=== PATIENT | female | born 1960 | race African-American/Black ===

== ENCOUNTER 2016-05-02 19:51 | Inpatient (IN) | payer OTHER, MEDICARE ==
[~2016-05-02] VITALS: Ht 167.6 cm; Wt 92.0 kg
[~2016-05-02 19:51] MED LIST: ALBU8I INH; AZAT50 PO; BACT800T5 PO; BECL80AE3 INH; CLON1 PO; DICL1GEL TOP; FOSA70TA PO; GLUCTAB PO; HUMSS SQ; LANTINJ SQ; METO25TA6 PO; MIDO5 PO; OMEP20CA5 PO; PRED20 PO; PREG75 PO; TIZA2TAB PO; [UNRECOGNIZED DRUG - CODE] IMPLANPUMP
[2016-05-02 19:55] VITALS: BP 84/49; PULSE 95; RESP 22; TEMP 98.7; O2SAT 97
[2016-05-02] MEDS ORDERED: SODIUM CHLORIDE 0.9% FLUSH 5 ML FLUSH IVF PRN (20:00)
[2016-05-02] MEDS ORDERED: SODIUM CHLOR 0.9% 1000 ML INJ 1,000 ML IV SCH ×2 (20:03)
--- NOTE | 2016-05-02 20:08 | PD ---
HPI Chief Complaint: Pain: Acute or Chronic Time Seen by Provider: 19:55 Travel History International Travel<30 days: No Contact w/Intl Traveler<30days: No Traveled to known affect area: No History of Present Illness HPI 55 year old female history of MS with lower extremity paraplegia and blindness in left eye, COPD, diabetes, colostomy, presents for evaluation of acute on chronic pain and inability to urinate as well as dyspnea. The patient reports that she has chronic pain all over her body for which she uses baclofen and Dilaudid through a pump as well as oral morphine. She says that her chronic generalized pain is worse over the past week. She cannot localize her pain. She also reports that she has not urinated in the past 2 days. She does not know if she's had any fevers or chills denies any upper respiratory symptoms. She does have a sacral pressure ulcer as well as a wound on her left breast which she reports is being managed at a wound care clinic. She reports that she was seen yesterday by her wound care doctor and had her dressings changed. PFSH Past Medical History Asthma: No Autoimmune Disease: No Blood Disorders: No Anxiety: Yes Depression: No Cancer: No Cardiovascular Problems: No Chemotherapy: Yes (for MS/ no hx of CA) COPD: Yes Diabetes: Yes Diminished Hearing: No Endocrine: No Glaucoma: No Genitourinary: No Hepatitis: No Hiatal Hernia: No Hypertension: No Implanted Vascular Access Dvce: Yes (rt subclavian port) Musculoskeletal: Yes (LOW BACK PAIN) Neurologic: Yes (MULTIPLE SCLEROSIS SINCE 2004) Psychiatric: No Reproductive: No Respiratory: No Radiation Therapy: No Sickle Cell Disease: No Sleep Apnea: No Thyroid Disease: No ?: Not Menopausal: Yes : 2 Para: 2 Miscarriage: 0 : 0 Past Surgical History Abdominal Surgery: Yes (LYSIS OF ADHESIONS) Appendectomy: Yes Body Medical Devices: IVAD Cardiac Surgery: No Cholecystectomy: Yes Ear Surgery: No Endocrine Surgery: No Eye Surgery: No Genitourinary Surgery: No Gynecologic Surgery: No Hysterectomy: Yes Oral Surgery: No Thoracic Surgery: No Other Surgery: Yes (HEMORROIDECTOMY) Social History Alcohol Use: No Tobacco Use: No Substance Use: No Allergies-Medications (Allergen,Severity, Reaction): Coded Allergies: No Known Allergies (Verified , 05/02/16) Reported Meds & Prescriptions Reported Meds & Active Scripts Active Reported Lantus Solostar Pen Inj (Insulin Glargine) 300 Unit/3 Ml Pen 1 Units SQ Lyrica (Pregabalin) 75 Mg Cap 75 Mg PO TID Alendronate (Alendronate Sodium) 70 Mg Tab 70 Mg PO Q7D Ondansetron (Ondansetron HCl) 8 Mg Tab 8 Mg PO TID Calcium 600 Mg Tab 600 Mg PO DAILY Lisinopril 5 Mg Tab 5 Mg PO DAILY Bethanechol 25 Mg Tab 25 Mg PO QID Vitamin D (Cholecalciferol) 400 Unit/Ml Drops 400 Units PO DAILY Morphine IR (Morphine Sulfate) 15 Mg Tab 15 Mg PO Q4H PRN Azathioprine 50 Mg Tab 50 Mg PO BID Hazardous agent use appropriate precautions for handling and disposal. Clonazepam 0.5 Mg Tab 0.5 Mg PO BID Humalog Kwikpen Pen Inj (Insulin Lispro (Human) Inj) 300 Unit/3 Ml Pen 1 Units SQ Review of Systems Except as stated in HPI: all other systems reviewed are Neg Physical Exam Narrative GENERAL: Chronically ill-appearing female who is in no acute distress. She is hypotensive on initial examination. She is not febrile or tachycardic. SKIN: Warm and dry. Stage II circular pressure ulcer on the sacrum, no erythema or drainage. Stage II pressure ulcer on the breast, no erythema or drainage. HEAD: Atraumatic. Normocephalic. EYES: Pupils round, right pupil is reactive to light. Extraocular muscles are intact. ENT: No nasal bleeding or discharge. Mucous membranes pink and moist. NECK: Trachea midline. No JVD. CARDIOVASCULAR: Regular rate and rhythm. No murmur appreciated. RESPIRATORY: No accessory muscle use. Clear to auscultation. Breath sounds equal bilaterally. No crackles no wheezing or rhonchi GASTROINTESTINAL: Abdomen soft, non-tender, nondistended. Hepatic and splenic margins not palpable. Colostomy in place. MUSCULOSKELETAL: No obvious deformities. No edema. NEUROLOGICAL: Awake and alert. No obvious cranial nerve deficits. Motor grossly within normal limits. Normal speech. Data Data Last Documented VS Orders Complete Blood Count With Diff (05/02/16 19:57) Comprehensive Metabolic Panel (05/02/16 19:57) Lipase (05/02/16 19:57) Iv Access Insert/Monitor (05/02/16 19:57) Ecg Monitoring (05/02/16 19:57) Oximetry (05/02/16 19:57) Sodium Chloride 0.9% Flush (Ns Flush) (05/02/16 20:00) Electrocardiogram (05/02/16 19:57) Chest, Single Ap (05/02/16 19:57) Creatine Kinase (Cpk) (05/02/16 19:57) Troponin I (05/02/16 19:57) Urinalysis - C+S If Indicated (05/02/16 19:57) Lactic Acid Sepsis Protocol (05/02/16 20:03) Blood Culture (05/02/16 20:03) Sodium Chlor 0.9% 1000 Ml Inj (Ns 1000 M (05/02/16 20:03) Sodium Chlor 0.9% 1000 Ml Inj (Ns 1000 M (05/02/16 20:03) Act Partial Throm Time (Ptt) (05/02/16 20:05) Prothrombin Time / Inr (Pt) (05/02/16 20:05) CKMB (05/02/16 20:10) CKMB% (05/02/16 20:10) Urine Culture (05/02/16 22:35) Admit Order (Ed Use Only) (05/03/16 00:25) Labs MDM Medical Decision Making Medical Screen Exam Complete: Yes Emergency Medical Condition: Yes Medical Record Reviewed: Yes Interpretation(s) EKG reveals normal sinus rhythm CBC hemoglobin 9.2 otherwise unremarkable CMP potassium 3.2, creatinine 2.19, lactic acid 3.5, protein corrected calcium 7.7, total CK 1016 Chest x-ray reveals scarring versus atelectasis, no acute abnormalities Differential Diagnosis Acute on chronic pain, urinary retention, UTI, sepsis, PE, COPD exacerbation, pneumonia Narrative Course 55-year-old female with MS with paraplegia, COPD, on morphine as well as Dilaudid and baclofen pain pumps presents with chronic pain, generalized, worse for one week as well as inability to urinate in 2 days, some dyspnea. On initial examination she is hypotensive, she reports that she typically is hypotensive with systolic in the 80s. The patient was initially given 500 mL bolus via EMS. 2 L additional fluid bolus will be ordered. Plan is for basic lab work, chest x-ray, EKG. Patient's lab work has been reviewed. She appears to have an acute kidney injury as well as a lactic acidosis, myositis with a CK of 1016. The CT pulmonary angiogram is being canceled given her kidney function will likely develop a PE. Her blood work has improved to the systolic 110 range. 2300: At the end of my shift the patient was signed out to Dr. Pelayo pending urinalysis, likely ultimately for admission. Min Warren May 02, 2016 20:08 Platelet Count 252 TH/MM3 Mean Platelet Volume 7.6 FL Neutrophils (%) (Auto) 66.0 % Lymphocytes (%) (Auto) 24.7 % Monocytes (%) (Auto) 8.0 % Eosinophils (%) (Auto) 1.0 % Basophils (%) (Auto) 0.3 % Neutrophils # (Auto) 6.4 TH/MM3 Lymphocytes # (Auto) 2.4 TH/MM3 Monocytes # (Auto) 0.8 TH/MM3 Eosinophils # (Auto) 0.1 TH/MM3 Basophils # (Auto) 0.0 TH/MM3 CBC Comment DIFF FINAL Differential Comment Prothrombin Time 10.6 SEC Prothromb Time International 1.0 RATIO Ratio Activated Partial 32.2 SEC Thromboplast Time Sodium Level 136 MEQ/L Potassium Level 3.2 MEQ/L Chloride Level 99 MEQ/L Carbon Dioxide Level 27.5 MEQ/L Anion Gap 10 MEQ/L Blood Urea Nitrogen 18 MG/DL Creatinine 2.19 MG/DL Estimat Glomerular Filtration 28 ML/MIN Rate Random Glucose 173 MG/DL Calcium Level 7.4 MG/DL Protein Corrected Calcium 7.7 MG/DL Total Bilirubin 0.2 MG/DL Aspartate Amino Transf 21 U/L (AST/SGOT) Alanine Aminotransferase 16 U/L (ALT/SGPT) Alkaline Phosphatase 78 U/L Total Creatine Kinase 1016 U/L Creatine Kinase MB 1.7 NG/ML Creatine Kinase MB % 0.2 % Troponin I LESS THAN 0.02 NG/ML Total Protein 6.6 GM/DL Albumin 2.3 GM/DL Lipase 145 U/L Lactic Acid Level 3.5 mmol/L [facility] Medical Decision Making Medical Screen Exam Complete: Yes Emergency Medical Condition: Yes Medical Record Reviewed: Yes Interpretation(s) EKG reveals normal sinus rhythm CBC hemoglobin 9.2 otherwise unremarkable CMP potassium 3.2, creatinine 2.19, lactic acid 3.5, protein corrected calcium 7.7, total CK 1016 Chest x-ray reveals scarring versus atelectasis, no acute abnormalities Differential Diagnosis Acute on chronic pain, urinary retention, UTI, sepsis, PE, COPD exacerbation, pneumonia Narrative Course 55-year-old female with MS with paraplegia, COPD, on morphine as well as Dilaudid and baclofen pain pumps presents with chronic pain, generalized, worse for one week as well as inability to urinate in 2 days, some dyspnea. On initial examination she is hypotensive, she reports that she typically is hypotensive with systolic in the 80s. The patient was initially given 500 mL bolus via EMS. 2 L additional fluid bolus will be ordered. Plan is for basic lab work, chest x-ray, EKG. Patient's lab work has been reviewed. She appears to have an acute kidney injury as well as a lactic acidosis, myositis with a CK of 1016. The CT pulmonary angiogram is being canceled given her kidney function will likely develop a PE. Her blood work has improved to the systolic 110 range. 2300: At the end of my shift the patient was signed out to Dr. Pelayo pending urinalysis, likely ultimately for admission. Min Warren May 02, 2016 20:08
[2016-05-02] MEDS ORDERED: BETH25TA2 PO (20:20)
[2016-05-02] MEDS ORDERED: HUMA100I3 SQ (20:20)
[2016-05-02] MEDS ORDERED: MSIR15 PO (20:20)
[2016-05-02] MEDS ORDERED: LISI-519 PO (20:20)
[2016-05-02] MEDS ORDERED: LYRI75CA PO (20:20)
[2016-05-02] MEDS ORDERED: CLON0.5T PO (20:20)
[2016-05-02] MEDS ORDERED: ALEN1TAB48 PO (20:20)
[2016-05-02] MEDS ORDERED: CHOL400D2 PO (20:20)
[2016-05-02] MEDS ORDERED: LANTINJ SQ (20:20)
[2016-05-02] MEDS ORDERED: AZAT50 PO (20:20)
[2016-05-02] MEDS ORDERED: ONDA1TAB17 PO (20:20)
[2016-05-02] MEDS ORDERED: CALC600T13 PO (20:20)
[2016-05-02 20:50] LABS: APTT (PATIENT) 32.2 SEC (24.3-30.1); PROTHROMBIN TIME - PATIENT 10.6 SEC (9.8-11.6)
[2016-05-02 21:00] VITALS: BP 92/57; PULSE 70; RESP 18; O2SAT 100
[2016-05-02 21:06] LABS: ANION GAP 10 MEQ/L (5-15)
[2016-05-02 21:14] LABS: ALKALINE PHOSPHATASE 78 U/L (45-117); ALT (GPT) 16 U/L (10-53); AST (GOT) 21 U/L (15-37); BICARBONATE 27.5 MEQ/L (21.0-32.0); BLOOD UREA NITROGEN 18 MG/DL (7-18); CALCIUM-PROTEIN CORRECTED 7.7 MG/DL (8.5-10.1); CHLORIDE 99 MEQ/L (98-107); CREATINE KINASE 1016 U/L (26-192); GLOMERULAR FILTRATION RATE 28 ML/MIN (>89); POTASSIUM 3.2 MEQ/L (3.5-5.1); SODIUM (NA) 136 MEQ/L (136-145); TOTAL BILIRUBIN ADULT 0.2 MG/DL (0.2-1.0)
[2016-05-02 21:15] LABS: AUTOMATED NEUTROPHIL # 6.4 TH/MM3 (1.8-7.7); BASOPHIL % 0.3 % (0.0-2.0); EOSINOPHIL # 0.1 TH/MM3 (0-0.4); HEMATOCRIT 28.5 % (35.0-46.0); HEMO FLAGS DIFF FINAL; LYMPH % 24.7 % (9.0-44.0); LYMPHOCYTE # 2.4 TH/MM3 (1.0-4.8); MEAN CELL VOLUME 86.8 FL (80.0-100.0); MEAN CORPUSCULAR HGB CONC 32.2 % (32.0-36.0); PLATELET COUNT 252 TH/MM3 (150-450); RED BLOOD COUNT 3.28 MIL/MM3 (4.00-5.30); RED CELL DISTRIBUTION WIDTH 13.4 % (11.6-17.2); WHITE BLOOD COUNT 9.7 TH/MM3 (4.0-11.0)
--- NOTE | 2016-05-02 21:22 | RADRPT ---
EXAM DATE/TIME: 05/02/2016 20:11 [place] COMPARISON: CHEST SINGLE AP, July 19, 2015, 22:43. INDICATIONS : Pain and shortness of breath. MEDICAL HISTORY : Multiple sclerosis. SURGICAL HISTORY : Port placement. ENCOUNTER: Initial ACUITY: 2 days PAIN SCORE: 5/10 LOCATION: Bilateral chest FINDINGS: There is an [id number] in place from the right internal jugular approach with the tip overlying th e SVC. The heart size is normal. There is increased density at identified at the bases bilaterally b eing more prominent on the right. The mid and upper lungs are clear. Bony structures are grossly in tact. Clips are seen in the right upper quadrant of the abdomen. CONCLUSION: Linear increased density identified at the bases bilaterally likely representing some scarring or atelectasis. These findings were present previously and appear unchanged. Vin Blue MD on May 02, 2016 at 21:14 Board Certified Radiologist. This report was verified electronically.
[2016-05-02 21:26] LABS: CKMB 1.7 NG/ML (0.5-3.6)
[2016-05-02 22:30] LABS: LACTIC ACID GHOST NOT REPORTABLE
[2016-05-02 23:00] VITALS: BP 104/58; PULSE 72; RESP 18; O2SAT 100
[2016-05-02 23:33] LABS: BACTERIA, URINE MANY /hpf; BLOOD, URINE SMALL (NEG); COMMENT (UR) CATH-CULTURE IND; CULTURE IF INDICATED CATH CULTURE IND; GLUCOSE,URINE NEG (NEG); KETONE, URINE NEG (NEG); MUCUS URINE MANY /lpf (OCC); PH, URINE 5.5 (5.0-8.5); SQUAMOUS EPITHELIAL CELL URINE 1 /hpf (0-5); URINE COLOR YELLOW (YELLW/STRAW)
[2016-05-02 23:34] LABS: NITRITE,URINE POS (NEG)
--- NOTE | 2016-05-02 23:48 | PD ---
Physical Exam Date Seen by Provider: May 02, 2016 Narrative Patient presented with pain all over. Data Data Last Documented VS Vital Signs Date Time Temp Pulse Resp B/P Pulse Ox O2 Delivery O2 Flow Rate FiO2 05/02/16 20:02 84 20 05/02/16 19:55 98.7 84/49 97 Orders Complete Blood Count With Diff (05/02/16 19:57) Comprehensive Metabolic Panel (05/02/16 19:57) Lipase (05/02/16 19:57) Iv Access Insert/Monitor (05/02/16 19:57) Ecg Monitoring (05/02/16 19:57) Oximetry (05/02/16 19:57) Sodium Chloride 0.9% Flush (Ns Flush) (05/02/16 20:00) Electrocardiogram (05/02/16 19:57) Chest, Single Ap (05/02/16 19:57) Creatine Kinase (Cpk) (05/02/16 19:57) Troponin I (05/02/16 19:57) Urinalysis - C+S If Indicated (05/02/16 19:57) Lactic Acid Sepsis Protocol (05/02/16 20:03) Blood Culture (05/02/16 20:03) Sodium Chlor 0.9% 1000 Ml Inj (Ns 1000 M (05/02/16 20:03) Sodium Chlor 0.9% 1000 Ml Inj (Ns 1000 M (05/02/16 20:03) Act Partial Throm Time (Ptt) (05/02/16 20:05) Prothrombin Time / Inr (Pt) (05/02/16 20:05) CKMB (05/02/16 20:10) CKMB% (05/02/16 20:10) Urine Culture (05/02/16 22:35) Admit Order (Ed Use Only) (05/03/16 00:25) Labs Laboratory Tests Test 05/02/16 05/02/16 05/02/16 05/02/16 20:10 20:15 22:35 23:40 White Blood Count 9.7 TH/MM3 Red Blood Count 3.28 MIL/MM3 Hemoglobin 9.2 GM/DL Hematocrit 28.5 % Mean Corpuscular Volume 86.8 FL Mean Corpuscular Hemoglobin 28.0 PG Mean Corpuscular Hemoglobin 32.2 % Concent Red Cell Distribution Width 13.4 % Platelet Count 252 TH/MM3 Mean Platelet Volume 7.6 FL Neutrophils (%) (Auto) 66.0 % Lymphocytes (%) (Auto) 24.7 % Monocytes (%) (Auto) 8.0 % Eosinophils (%) (Auto) 1.0 % Basophils (%) (Auto) 0.3 % Neutrophils # (Auto) 6.4 TH/MM3 Lymphocytes # (Auto) 2.4 TH/MM3 Monocytes # (Auto) 0.8 TH/MM3 Eosinophils # (Auto) 0.1 TH/MM3 Basophils # (Auto) 0.0 TH/MM3 CBC Comment DIFF FINAL Differential Comment Prothrombin Time 10.6 SEC Prothromb Time International 1.0 RATIO Ratio Activated Partial 32.2 SEC Thromboplast Time Sodium Level 136 MEQ/L Potassium Level 3.2 MEQ/L Chloride Level 99 MEQ/L Carbon Dioxide Level 27.5 MEQ/L Anion Gap 10 MEQ/L Blood Urea Nitrogen 18 MG/DL Creatinine 2.19 MG/DL Estimat Glomerular Filtration 28 ML/MIN Rate Random Glucose 173 MG/DL Calcium Level 7.4 MG/DL Protein Corrected Calcium 7.7 MG/DL Total Bilirubin 0.2 MG/DL Aspartate Amino Transf 21 U/L (AST/SGOT) Alanine Aminotransferase 16 U/L (ALT/SGPT) Alkaline Phosphatase 78 U/L Total Creatine Kinase 1016 U/L Creatine Kinase MB 1.7 NG/ML Creatine Kinase MB % 0.2 % Troponin I LESS THAN 0.02 NG/ML Total Protein 6.6 GM/DL Albumin 2.3 GM/DL Lipase 145 U/L Lactic Acid Level 3.5 mmol/L 2.0 mmol/L Urine Color YELLOW Urine Turbidity CLOUDY Urine pH 5.5 Urine Specific [place] 1.012 Urine Protein TRACE mg/dL Urine Glucose (UA) NEG mg/dL Urine Ketones NEG mg/dL Urine Occult Blood SMALL Urine Nitrite POS Urine Bilirubin NEG Urine Urobilinogen LESS THAN 2.0 MG/DL Urine Leukocyte Esterase LARGE Urine RBC 64 /hpf Urine WBC /hpf Urine WBC Clumps MANY Urine Squamous Epithelial 1 /hpf Cells Urine Bacteria MANY /hpf Urine Mucus MANY /lpf Microscopic Urinalysis Comment CATH-CULTURE IND MDM Supervised Visit with FITO: Yes Narrative Course Patient presented complaining with pain all over. She was noted to be hypotensive on arrival. Septic workup was initiated. CBC & BMP Diagram 05/02/16 20:10 Lactic acid level was 3.5. Total CK is about 1000. UA is cloudy with many white blood cell clumps, large leukocyte esterase, positive nitrite and many bacteria. Sepsis Criteria SIRS Criteria (2 or more): Heart rate over 90, RR > 20 or PaCO2 < 32 Sepsis Criteria (SIRS+source): Infect source susp/known Severe Sepsis (+one): Hypotension Physician Communication Physician Communication Dr. Tsang will admit Diagnosis Primary Impression: Sepsis Qualified Code: A41.9 - Sepsis, due to unspecified organism Additional Impressions: UTI (urinary tract infection) Qualified Code: N30.00 - Acute cystitis without hematuria Acute kidney injury Admitting Information Admitting Physician Requests: Admit Condition: Stable Allie Pelayo MD May 02, 2016 23:48
[2016-05-03] VITALS (8 sets, daily range): BP systolic 96–116; BP diastolic 49–60; PULSE 70–87; RESP 16–19; TEMP 96.5–98.8; O2SAT 95–100
[2016-05-03] MEDS ORDERED: SODIUM CHLORIDE 0.9% FLUSH 5 ML FLUSH FLUSH PRN (00:30)
[2016-05-03] MEDS ORDERED: NALOXONE HCL 0.4 MG/ML AMP IV PRN (00:30)
[2016-05-03] MEDS: SODIUM CHLOR 0.9% 1000 ML INJ 1,000 ML IV SCH ×3 (00:59→22:54)
[2016-05-03] MEDS: cefTRIAXone INJ 1,000 MG in SODIUM CHLORIDE 0.9% INJ 100 ML IV SCH ×2 (00:59→14:03)
[2016-05-03] MEDS ORDERED: GLUCAGON 1 MG/ML VIAL OTHER PRN (03:45)
[2016-05-03] MEDS ORDERED: DEXTROSE 50% IN WATER 50 ML VIAL(D50) IV PUSH PRN (03:45)
[2016-05-03] MEDS ORDERED: MORPHINE SULFATE 15 MG TAB PO PRN (03:45)
--- NOTE | 2016-05-03 03:45 | HHI.HP ---
[facility] Chanelle Khan MD Admission Diagnosis uti/sepsis Diagnoses: Chief Complaint: "I haven't urinated in 2-3 days." Patient also c/o chronic generalized Travel History International Travel<30 Days: No Contact w/Intl Traveler <30 Da: No Traveled to Known Affected Are: No Sepsis Criteria SIRS Criteria (2 or more): Heart rate over 90, RR > 20 or PaCO2 < 32 Sepsis Criteria (SIRS+source): Infect source susp/known History of Present Illness This is a pleasant 55-year-old female patient with past medical history which includes multiple sclerosis diagnosed in 2004, patient has been bedridden for the past 5 years, hypertension, diabetes mellitus, sleep apnea, COPD history of acute kidney injury but patient denies chronic kidney disease, colostomy placed status post bowel obstruction. Patient patient's emergency department today because she reports she has not urinated in the past 2-3 days. Patient reports over the past 2 weeks she has had nausea and vomited approximately 3 times will she is sleeping she wakes up vomiting. Patient also reports intermittent periods of shortness of breath worse than her typical COPD. Patient complains of chronic generalized pain which she takes morphine immediate release 15 mg Q4H as needed at home. Patient denies fevers chills chest pain, or change in colostomy output. Patient reports she has not been eating or drinking as much as she typically does. Review of Systems Except as stated in HPI: all other systems reviewed are Neg Past Family Social History Past Medical History multiple sclerosis diagnosed in 2004, patient has been bedridden for the past 5 years, hypertension, diabetes mellitus, sleep apnea, COPD history of acute kidney injury but patient denies chronic kidney disease, colostomy placed status post bowel obstruction Past Surgical History Colostomy placement, cholecystectomy, lysis of adhesions, hemorrhoidectomy Reported Medications Lantus Solostar Pen Inj (Insulin Glargine) 300 Unit/3 Ml Pen 1 Units SQ Lyrica (Pregabalin) 75 Mg Cap 75 Mg PO TID Alendronate (Alendronate Sodium) 70 Mg Tab 70 Mg PO Q7D Ondansetron (Ondansetron HCl) 8 Mg Tab 8 Mg PO TID Calcium 600 Mg Tab 600 Mg PO DAILY Lisinopril 5 Mg Tab 5 Mg PO DAILY Bethanechol 25 Mg Tab 25 Mg PO QID Vitamin D (Cholecalciferol) 400 Unit/Ml Drops 400 Units PO DAILY Morphine IR (Morphine Sulfate) 15 Mg Tab 15 Mg PO Q4H PRN Azathioprine 50 Mg Tab 50 Mg PO BID Hazardous agent use appropriate precautions for handling and disposal. Clonazepam 0.5 Mg Tab 0.5 Mg PO BID Humalog Kwikpen Pen Inj (Insulin Lispro (Human) Inj) 300 Unit/3 Ml Pen 1 Units SQ Allergies: Coded Allergies: No Known Allergies (Verified , 05/02/16) Active Ordered Medications Current Medications Medications (Trade) Dose Ordered Sig/[place] Route Start Time Stop Time Status Last Admin (NS 1000 ml Inj) 1,000 ml @ 100 mls/hr Q10H IV 05/03/16 00:27 05/03/16 00:59 (NS Flush) 2 ml UNSCH PRN FLUSH 05/03/16 00:30 (NS Flush) 2 ml BID FLUSH 05/03/16 09:00 (Heparin Inj) 5,000 units Q8H SQ 05/03/16 09:00 Naloxone HCl 0.4 mg 0.4 mg UNSCH PRN IV 05/03/16 00:30 (Rocephin Inj/NS Inj) 100 ml @ 200 mls/hr Q12H IV 05/03/16 00:30 05/03/16 00:59 (Zofran Inj) 4 mg Q6HR PRN IV PUSH 05/03/16 03:45 (Imuran) 50 mg BID PO 05/03/16 09:00 (Urecholine) 25 mg QID PO 05/03/16 09:00 (Msir) 15 mg Q4H PRN PO 05/03/16 03:45 (Lyrica) 75 mg TID PO 05/03/16 09:00 (D50w (Vial) Inj) 25 ml UNSCH PRN IV PUSH 05/03/16 03:45 (Glucagon Inj) 1 mg UNSCH PRN OTHER 05/03/16 03:45 Family History Family history positive for prostate cancer, breast cancer, stomach cancer Social History Patient denies EtOH use or tobacco use Physical Exam Vital Signs Vital Signs Date Time Temp Pulse Resp B/P Pulse Ox O2 Delivery O2 Flow Rate FiO2 05/03/16 01:00 70 17 111/56 100 Room Air 05/02/16 23:00 72 18 104/58 100 Room Air 05/02/16 21:00 70 18 92/57 100 Room Air 05/02/16 20:02 84 20 05/02/16 19:55 98.7 95 22 84/49 97 Physical Exam GENERAL: This is an obese, bedridden female patient, in no apparent distress. SKIN: Sacral ulceration 2, ulceration left breast HEAD: Atraumatic. Normocephalic. No temporal or scalp tenderness. EYES: Extraocular motions intact. No scleral icterus. No injection or drainage. ENT: Nose without bleeding, purulent drainage or septal hematoma. Throat without erythema, tonsillar hypertrophy or exudate. Uvula midline. Airway patent. NECK: Trachea midline. No JVD or lymphadenopathy. Supple, nontender, no meningeal signs. CARDIOVASCULAR: Regular rate and rhythm without murmurs, gallops, or rubs. RESPIRATORY: Clear to auscultation. Breath sounds equal bilaterally. No wheezes , rales, or rhonchi. GASTROINTESTINAL: Abdomen soft, non-tender, nondistended. No guarding. MUSCULOSKELETAL: Bilateral foot drop. Spastic contracted bilateral lower extremities No calf tenderness. Negative Homans sign bilaterally. NEUROLOGICAL: Awake and alert. Spastic contracted bilateral lower extremities with bilateral foot drop. BUE 4/5. Normal speech. Laboratory Laboratory Tests Test 05/02/16 05/02/16 05/02/16 05/02/16 20:10 20:15 22:35 23:40 White Blood Count 9.7 Red Blood Count 3.28 Hemoglobin 9.2 Hematocrit 28.5 Mean Corpuscular Volume 86.8 Mean Corpuscular Hemoglobin 28.0 Mean Corpuscular Hemoglobin 32.2 Concent Red Cell Distribution Width 13.4 Platelet Count 252 Mean Platelet Volume 7.6 Neutrophils (%) (Auto) 66.0 Lymphocytes (%) (Auto) 24.7 Monocytes (%) (Auto) 8.0 Eosinophils (%) (Auto) 1.0 Basophils (%) (Auto) 0.3 Neutrophils # (Auto) 6.4 Lymphocytes # (Auto) 2.4 Monocytes # (Auto) 0.8 Eosinophils # (Auto) 0.1 Basophils # (Auto) 0.0 CBC Comment DIFF FINAL Differential Comment Prothrombin Time 10.6 Prothromb Time International 1.0 Ratio Activated Partial 32.2 Thromboplast Time Sodium Level 136 Potassium Level 3.2 Chloride Level 99 Carbon Dioxide Level 27.5 Anion Gap 10 Blood Urea Nitrogen 18 Creatinine 2.19 Estimat Glomerular Filtration 28 Rate Random Glucose 173 Calcium Level 7.4 Protein Corrected Calcium 7.7 Total Bilirubin 0.2 Aspartate Amino Transf 21 (AST/SGOT) Alanine Aminotransferase 16 (ALT/SGPT) Alkaline Phosphatase 78 Total Creatine Kinase 1016 Creatine Kinase MB 1.7 Creatine Kinase MB % 0.2 Troponin I LESS THAN 0.02 Total Protein 6.6 Albumin 2.3 Lipase 145 Lactic Acid Level 3.5 2.0 Urine Color YELLOW Urine Turbidity CLOUDY Urine pH 5.5 Urine Specific [place] 1.012 Urine Protein TRACE Urine Glucose (UA) NEG Urine Ketones NEG Urine Occult Blood SMALL Urine Nitrite POS Urine Bilirubin NEG Urine Urobilinogen LESS THAN 2.0 Urine Leukocyte Esterase LARGE Urine RBC 64 Urine WBC Urine WBC Clumps MANY Urine Squamous Epithelial 1 Cells Urine Bacteria MANY Urine Mucus MANY Microscopic Urinalysis Comment CATH-CULTURE IND Date/Time Procedure Status Source Growth 05/02/16 22:35 Urine Culture Received Urine Catheterized Urine Pending 05/02/16 20:13 Aerobic Blood Culture Received Blood Peripheral Pending 05/02/16 20:13 Anaerobic Blood Culture Received Blood Peripheral Pending Result Diagram: 05/02/16200905/02/162009 Imaging Last Impressions Chest X-Ray 05/02/161956 Signed Impressions: Service Date/Time: Monday, May 02, 2016 20:11 - CONCLUSION: Linear increased density identified at the bases bilaterally likely representing some scarring or atelectasis. These findings were present previously and appear unchanged. Vin Blue MD Septic Shock Reassessment Heart: Regular rate and rhythm Lungs: Clear Skin: Warm, Dry Peripheral Pulses: Bounding Right Radial Bounding Left Radial Bounding Right Dorsalis Pedis Bounding Left Dorsalis Pedis Capillary Refill: Brisk Assessment and Plan Assessment and Plan This is a pleasant 55-year-old female patient with past medical history which includes multiple sclerosis diagnosed in 2004, patient has been bedridden for the past 5 years, hypertension, diabetes mellitus, sleep apnea, COPD history of acute kidney injury but patient denies chronic kidney disease, colostomy placed status post bowel obstruction. Patient patient's emergency department today because she reports she has not urinated in the past 2-3 days. Sepsis UTI, Urine culture pending Continue ceftriaxone IV Continue IV fluids 100 cc's per hour status post 2 L fluid bolus the emergency department Patient is incontinent with sacrococcyx/coccyx wounds and UTI- consider Lei catheter Sacral/coccyx wounds L breast wound consult wound care keep clean and dry Rhabdomyolysis- sepsis and bedridden patient Continue hydration recheck CK in a.m. Acute kidney injury likely secondary to dehydration Continue IV fluids recheck in a.m. If kidney function does not improve will consider renal ultrasound Multiple sclerosis continue azathioprine Consult Neurology, Patient known to Dr. Hays History of hypertension hold home lisinopril at this time. Patient is hypotensive Generalized pain continue patient's home medication morphine immediate release 15 mg every 4 hours as needed for pain DVT prophylaxis with heparin subcutaneous Discussed plan of care with patient come here provider and RN Written by Tamera Medellin, acting as scribe for Dr. Tsang on 05/03/16 at 04: 27. All or portions of this note were transcribed by scribe [Tamera Medellin]. I , Dr. Jeevan Tsang personally performed the history, physical exam, and medical decision making; and confirmed the accuracy of the information in the transcribed note. Authenticated by Dr. Jeevan Tsang on 05/03/16 at 0427 Tamera Medellin May 03, 2016 03:45 Jeevan Tsang MD May 21, 2016 08:19
[2016-05-03] MEDS: INSULIN ASPART SUPPLEMENTAL SCALE SQ SCH ×4 (05:38→22:55)
--- NOTE | 2016-05-03 09:07 | HHI.PR ---
Subjective Remarks Follow up for sepsis, UTI, sacral/coccyx/breast wounds, rhabdo, FELIPE, multiple sclerosis. The patient reports continued diffuse pain, persistent nausea, diffuse global headache, and shortness of breath. Blood pressure hypotensive, patient reports whenever she gets "sick" it will drop to the 90s, but usually its around the 110s. She does not feel any better compared to her arrival. She lives with her son at home and has [facility] who visits 7days a week. She is bed/ wheelchair bound, has a Denis lift at home. She's had the colostomy for 6+ years. Objective Vitals Vital Signs Date Time Temp Pulse Resp B/P Pulse Ox O2 Delivery O2 Flow Rate FiO2 05/03/16 07:38 96.5 70 16 96/58 100 05/03/16 05:03 98.8 87 16 96/58 95 05/03/16 01:00 70 17 111/56 100 Room Air 05/02/16 23:00 72 18 104/58 100 Room Air 05/02/16 21:00 70 18 92/57 100 Room Air 05/02/16 20:02 84 20 05/02/16 19:55 98.7 95 22 84/49 97 Result Diagram: 05/02/16200905/02/162009 Imaging Last Impressions Chest X-Ray 05/02/161956 Signed Impressions: Service Date/Time: Monday, May 02, 2016 20:11 - CONCLUSION: Linear increased density identified at the bases bilaterally likely representing some scarring or atelectasis. These findings were present previously and appear unchanged. Vin Blue MD Objective Remarks GENERAL: Well-nourished, well-developed female patient in NAD. Bedridden. SKIN: Warm and dry. Sacral ulceration 2 and ulceration at left breast. HEENT: Normocephalic. Atraumatic. Pupils equal and round. No scleral icterus. No injection or drainage. Mucous membranes pink and moist. NECK: Supple. Trachea midline. CARDIOVASCULAR: Regular rate and rhythm. S1, S2 noted. No murmur appreciated. RESPIRATORY: No accessory muscle use. Clear to auscultation. Breath sounds equal bilaterally. GASTROINTESTINAL: Abdomen soft, non-tender, nondistended. Normoactive bowel sounds x4. MUSCULOSKELETAL: Extremities without clubbing, cyanosis, or edema. NEUROLOGICAL: Awake and alert. Spastic contracted bilateral lower extremities with bilateral foot drop. Normal speech. PSYCHIATRIC: Appropriate mood and affect; insight and judgment normal. Medications and IVs Current Medications Medications (Trade) Dose Ordered Sig/Garrison Route Start Time Stop Time Status Last Admin (NS 1000 ml Inj) 1,000 ml @ 100 mls/hr Q10H IV 05/03/16 00:27 05/03/16 09:30 (NS Flush) 2 ml UNSCH PRN FLUSH 05/03/16 00:30 (NS Flush) 2 ml BID FLUSH 05/03/16 09:00 05/03/16 09:28 (Heparin Inj) 5,000 units Q8H SQ 05/03/16 09:00 05/03/16 09:30 Naloxone HCl 0.4 mg 0.4 mg UNSCH PRN IV 05/03/16 00:30 (Rocephin Inj/NS Inj) 100 ml @ 200 mls/hr Q12H IV 05/03/16 00:30 05/03/16 00:59 (Zofran Inj) 4 mg Q6HR PRN IV PUSH 05/03/16 03:45 05/03/16 09:29 (Imuran) 50 mg BID PO 05/03/16 09:00 05/03/16 12:29 (Urecholine) 25 mg QID PO 05/03/16 09:00 05/03/16 12:29 (Lyrica) 75 mg TID PO 05/03/16 09:00 05/03/16 09:29 (D50w (Vial) Inj) 25 ml UNSCH PRN IV PUSH 05/03/16 03:45 (Glucagon Inj) 1 mg UNSCH PRN OTHER 05/03/16 03:45 (Compazine Inj) 10 mg Q8H PRN IVS 05/03/16 09:15 (Msir) 15 mg Q8H PRN PO 05/03/16 15:45 (Tylenol) 650 mg Q6H PRN PO 05/03/16 09:15 05/03/16 09:29 A/P Problem List: (1) Sepsis ICD Code: A41.9 Status: Acute (2) UTI (urinary tract infection) ICD Code: N39.0 Status: Acute (3) Acute kidney injury ICD Code: N17.9 Status: Acute (4) Chronic pain ICD Code: G89.29 Status: Acute (5) Multiple sclerosis ICD Code: G35 Status: Acute Assessment and Plan 55-year-old female patient with PMH of multiple sclerosis diagnosed in 2004, bedridden for the past 5 years, HTN, DM, NAPOLEON, COPD, history of FELIPE but patient denies CKD, colostomy placed s/p bowel obstruction; presents to the ER 05/02 because she reports she has not urinated in the past 2-3 days. Sepsis with UTI: UA with pos nitrites, large leuks, many WBCs/bacteria. -s/p 2L IVF bolus in the ER, continue IVF at 100cc/hr -f/up Urine culture -Continue ceftriaxone IV Urinary incontinence: with sacrococcyx/coccyx wounds and UTI -consider Lei catheter Sacral/coccyx wounds, and L breast wound -consult wound care -keep clean and dry Rhabdomyolysis- CPK 1016, with sepsis in a bedridden patient -Given IVF boluses, now on maintenance IVF -Repeat CPK 831 today, continue to monitor qd Acute kidney injury: suspect secondary to dehydration -On IVF -repeat labs with improvement back to normal, Cr 0.70 -resolved, avoid nephrotoxins. Multiple sclerosis continue azathioprine -Consult Neurology, Patient known to Dr. Hays History of hypertension: Patient is hypotensive. -hold home lisinopril at this time. Generalized pain: acute on chronic -continue patient's home medication morphine IR 15 mg tid prn -added tylenol as needed, encouraged patient to use tylenol instead with low BP DVT prophylaxis: heparin subcutaneous Written by Alba Mccormack, acting as scribe for Dr. Ralph on 05/03/16 at 09:06. The documentation accurately reflects the work performed [id number] by me on at 0906. Problem Qualifiers (1) Sepsis: Qualified Code: A41.9 - Sepsis, due to unspecified organism (2) UTI (urinary tract infection): Qualified Code: N30.00 - Acute cystitis without hematuria Alba Mccormack PA-C May 03, 2016 09:07 Alice Ralph DO May 03, 2016 20:56
[2016-05-03] MEDS ORDERED: PROCHLORPERAZINE INJ 10 MG/2 ML VIAL IVS PRN (09:15)
[2016-05-03] MEDS: SODIUM CHLORIDE 0.9% FLUSH 5 ML FLUSH FLUSH SCH ×2 (09:28→21:00)
[2016-05-03] MEDS: PREGABALIN 75 MG CAP PO SCH ×3 (09:29→17:41)
[2016-05-03] MEDS: ACETAMINOPHEN 325 MG TAB PO PRN (09:29)
[2016-05-03] MEDS: ONDANSETRON HCL 4 MG/2 ML VIAL IV PUSH PRN ×2 (09:29→14:02)
[2016-05-03] MEDS: HEPARIN SODIUM - SQ 10,000 UNITS/ML VIAL SQ SCH ×2 (09:30→17:00)
[2016-05-03 10:54] LABS: BICARBONATE 27.7 MEQ/L (21.0-32.0); POTASSIUM 3.9 MEQ/L (3.5-5.1)
[2016-05-03 11:24] LABS: CKMB 2.1 NG/ML (0.5-3.6)
[2016-05-03] MEDS: azaTHIOprine 50 MG TAB PO SCH ×2 (12:29→21:00)
[2016-05-03] MEDS: BETHANECHOL CHL 25 MG TAB PO SCH ×4 (12:29→21:00)
[2016-05-03] MEDS: MORPHINE SULFATE 15 MG TAB PO PRN (15:32)
--- NOTE | 2016-05-03 16:06 | EKG ---
Date Performed: 05/02/2016 Time Performed: 20:05:33 PTAGE: 55 years EKG: Sinus rhythm Nonspecific T wave change. When compared to previous tracing, there is now some improvement in the T wave changes anteriorly, otherwise no Significant change. NORMAL ECG PREVIOUS TRACING : 07/20/2015 00.48 DOCTOR: Darrius Montes Interpretating Date/Time 05/03/2016 16:05:10
[2016-05-04] MEDS: HEPARIN SODIUM - SQ 10,000 UNITS/ML VIAL SQ SCH ×3 (02:29→17:00)
[2016-05-04] MEDS: cefTRIAXone INJ 1,000 MG in SODIUM CHLORIDE 0.9% INJ 100 ML IV SCH (02:30)
[2016-05-04 03:34] VITALS: BP 105/57; PULSE 77; RESP 19; TEMP 98; O2SAT 99
[2016-05-04 04:22] LABS: AUTOMATED NEUTROPHIL # 6.3 TH/MM3 (1.8-7.7); BASOPHIL % 0.2 % (0.0-2.0); EOSINOPHIL # 0.1 TH/MM3 (0-0.4); EOSINOPHIL % 0.9 % (0.0-4.0); HEMATOCRIT 30.1 % (35.0-46.0); HEMO FLAGS DIFF FINAL; LYMPHOCYTE # 1.3 TH/MM3 (1.0-4.8); MEAN CORPUSCULAR HEMOGLOBIN 28.9 PG (27.0-34.0); MEAN CORPUSCULAR HGB CONC 33.6 % (32.0-36.0); MONO % 6.5 % (0.0-8.0); NEUT % 76.4 % (16.0-70.0); PLATELET COUNT 260 TH/MM3 (150-450); RED CELL DISTRIBUTION WIDTH 13.2 % (11.6-17.2); WHITE BLOOD COUNT 8.3 TH/MM3 (4.0-11.0)
[2016-05-04 04:50] LABS: BICARBONATE 29.7 MEQ/L (21.0-32.0); POTASSIUM 4.2 MEQ/L (3.5-5.1)
[2016-05-04 05:30] LABS: CKMB 1.2 NG/ML (0.5-3.6)
[2016-05-04] MEDS: SODIUM CHLOR 0.9% 1000 ML INJ 1,000 ML IV SCH ×2 (06:24→17:55)
[2016-05-04] MEDS: INSULIN ASPART SUPPLEMENTAL SCALE SQ SCH ×4 (06:24→22:09)
[2016-05-04 07:59] VITALS: BP 119/69; PULSE 72; RESP 18; TEMP 99.8; O2SAT 100
[2016-05-04] MEDS ORDERED: ACETAMINOPHEN 325 MG TAB PO ONE (08:45)
--- NOTE | 2016-05-04 08:45 | HHI.PR ---
Subjective Remarks Follow up for sepsis with UTI, FELIPE, rhabdo. The patient reports feeling better today however still with diffuse generalized body pains and mild headache. No fevers or chills. She doesn't feel well enough to go home today, still with mildly elevated temperature of 99.8 this morning. She believes she is having a MS flare with feeling very weak, diffuse pains, and shortness of breath. Objective Vitals Vital Signs Date Time Temp Pulse Resp B/P Pulse Ox O2 Delivery O2 Flow Rate FiO2 05/04/16 07:59 99.8 72 18 119/69 100 05/04/16 03:34 98.0 77 19 105/57 99 05/03/16 23:03 98.0 76 19 101/58 99 05/03/16 20:00 81 05/03/16 19:40 98.2 80 19 116/57 97 05/03/16 16:43 97.2 77 18 103/60 99 05/03/16 10:56 96.7 73 18 96/49 100 I/O 05/03/16 05/03/16 05/03/16 05/04/16 05/04/16 05/04/16 07:00 15:00 23:00 07:00 15:00 23:00 Intake Total 240 ml 570 ml Balance 240 ml 570 ml Intake Oral 240 ml 120 ml IV Total 450 ml # Voids 1 2 # Bowel Movements 1 Result Diagram: 05/04/1632905/04/16329 Imaging Last Impressions Chest X-Ray 05/02/161956 Signed Impressions: Service Date/Time: Monday, May 02, 2016 20:11 - CONCLUSION: Linear increased density identified at the bases bilaterally likely representing some scarring or atelectasis. These findings were present previously and appear unchanged. Vin Blue MD Objective Remarks GENERAL: Well-nourished, well-developed female patient in NAD. Bedridden. SKIN: Warm and dry. Sacral ulceration 2 and ulceration at left breast. HEENT: Normocephalic. Atraumatic. Pupils equal and round. No scleral icterus. No injection or drainage. Mucous membranes pink and moist. NECK: Supple. Trachea midline. CARDIOVASCULAR: Regular rate and rhythm. S1, S2 noted. No murmur appreciated. RESPIRATORY: No accessory muscle use. Clear to auscultation. Breath sounds equal bilaterally. GASTROINTESTINAL: Abdomen soft, non-tender, nondistended. Normoactive bowel sounds x4. MUSCULOSKELETAL: Extremities without clubbing, cyanosis, or edema. NEUROLOGICAL: Awake and alert. Spastic contracted bilateral lower extremities with bilateral foot drop. Normal speech. PSYCHIATRIC: Appropriate mood and affect; insight and judgment normal. Medications and IVs Current Medications Medications (Trade) Dose Ordered Sig/Garrison Route Start Time Stop Time Status Last Admin (NS 1000 ml Inj) 1,000 ml @ 100 mls/hr Q10H IV 05/03/16 00:27 05/03/16 22:54 (NS Flush) 2 ml UNSCH PRN FLUSH 05/03/16 00:30 (NS Flush) 2 ml BID FLUSH 05/03/16 09:00 05/04/16 08:54 (Heparin Inj) 5,000 units Q8H SQ 05/03/16 09:00 05/04/16 08:55 (Narcan Inj) 0.4 mg UNSCH PRN IV 05/03/16 00:30 (Zofran Inj) 4 mg Q6HR PRN IV PUSH 05/03/16 03:45 05/03/16 14:02 (Imuran) 50 mg BID PO 05/03/16 09:00 05/04/16 08:54 (Urecholine) 25 mg QID PO 05/03/16 09:00 05/04/16 08:54 (Lyrica) 75 mg TID PO 05/03/16 09:00 05/04/16 08:55 (D50w (Vial) Inj) 25 ml UNSCH PRN IV PUSH 05/03/16 03:45 (Glucagon Inj) 1 mg UNSCH PRN OTHER 05/03/16 03:45 (Compazine Inj) 10 mg Q8H PRN IVS 05/03/16 09:15 (Msir) 15 mg Q8H PRN PO 05/03/16 15:45 05/03/16 15:32 (Tylenol) 650 mg Q6H PRN PO 05/03/16 09:15 05/03/16 09:29 (Bactrim Ds 800-160 Mg) 1 tab Q12HR PO 05/04/16 09:00 05/07/16 08:59 A/P Problem List: (1) Sepsis ICD Code: A41.9 Status: Acute (2) UTI (urinary tract infection) ICD Code: N39.0 Status: Acute (3) Acute kidney injury ICD Code: N17.9 Status: Acute (4) Chronic pain ICD Code: G89.29 Status: Acute (5) Multiple sclerosis ICD Code: G35 Status: Acute Assessment and Plan 55-year-old AA female patient with PMH of multiple sclerosis diagnosed in 2004, bedridden for the past 5 years, HTN, DM, NAPOLEON, COPD, history of FELIPE but patient denies CKD, colostomy placed s/p bowel obstruction; presents to the ER 05/02 because she reports she has not urinated in the past 2-3 days, with generalized pain, weakness, and shortness of breath Sepsis with UTI: UA with pos nitrites, large leuks, many WBCs/bacteria. -s/p 2L IVF bolus in the ER, and continue IVF at 100cc/hr -f/up Urine culture, currently with gram negative rods -Blood culture with no growth to date -Given IV Rocephin however past urine cultures reviewed, resistant to Cipro, will change to Bactrim po bid x3days -BP improving today Urinary incontinence: with sacrococcyx/coccyx wounds and UTI -consider Lei catheter Sacral/coccyx wounds, and L breast wound -consult wound care -keep clean and dry Rhabdomyolysis- CPK 1016, with sepsis in a bedridden patient -Given IVF boluses, now on maintenance IVF -Repeat CPK 435 today, continue to monitor qd Acute kidney injury: suspect secondary to dehydration -On IVF -repeat labs with improvement back to normal, Cr 0.70 -resolved, avoid nephrotoxins. Multiple sclerosis continue azathioprine -Consult Neurology, Patient known to Dr. Hays History of hypertension: Patient is hypotensive. -hold home lisinopril at this time. Generalized pain: acute on chronic -continue patient's home medication morphine IR 15 mg tid prn -added tylenol as needed, encouraged patient to use tylenol instead with low BP DVT prophylaxis: heparin subcutaneous Written by Alba Mccormack, acting as scribe for Dr. Ralph on 05/04/16 at 08:40. The documentation accurately reflects the work performed [id number] by me on at 08:40. Problem Qualifiers (1) Sepsis: Qualified Code: A41.9 - Sepsis, due to unspecified organism (2) UTI (urinary tract infection): Qualified Code: N30.00 - Acute cystitis without hematuria Alba Mccormack PA-C May 04, 2016 08:45 Alice Ralph DO May 04, 2016 22:50
[2016-05-04] MEDS: SODIUM CHLORIDE 0.9% FLUSH 5 ML FLUSH FLUSH SCH ×2 (08:54→22:09)
[2016-05-04] MEDS: BETHANECHOL CHL 25 MG TAB PO SCH ×4 (08:54→22:09)
[2016-05-04] MEDS: azaTHIOprine 50 MG TAB PO SCH ×2 (08:54→22:09)
[2016-05-04] MEDS: PREGABALIN 75 MG CAP PO SCH ×3 (08:55→17:57)
[2016-05-04 12:13] VITALS: BP 123/58; PULSE 70; RESP 18; O2SAT 96
--- NOTE | 2016-05-04 12:15 | MB ---
cc: DIANNA GUZMAN M.D. DATE OF CONSULTATION: 05/04/2016 REASON FOR CONSULTATION: Multiple sclerosis. HISTORY OF PRESENT ILLNESS Ms. 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 She has been on Imuran 50 mg t.i.d. She states over the past couple of weeks she has been having progressive weakness in both upper and lower extremities as well as lethargy. She presented to the hospital. PAST MEDICAL HISTORY: 1. History of MS. She has been bedridden for 5 years. This is progressive MS 2. History of COPD. 3. Sleep apnea. 4. Diabetes. 5. Hypertension. 6. Kidney injury. 7. Colostomy placement. 8. Cholecystectomy. 9. Lysis of adhesions 10. Hemorrhoidectomy MEDICATIONS AT HOME: 1. Lantus 2. Insulin 3. Lyrica 75 milligrams t.i.d. 4. Alendronate 70 milligrams every 7 days. 5. Ondansetron as needed. 6. Lisinopril 7. Bethanechol 8. Morphine. 9. Imuran 50 milligrams t.i.d. 10. Clonazepam 0.5 milligrams b.i.d. ALLERGIES: NONE KNOWN. NEUROLOGICAL EXAMINATION: She is alert, oriented x3. Speech is normal. Cranial nerves, she has a left BEBETO. Pupils equal. Motor exam: Diffusely weak at 4/5 in the upper extremities, 3/5 lower extremities, reflexes are 2+ symmetric. LABORATORY DATA: White count 8300. Hemoglobin 10.1, hematocrit 30%, platelets 260,000. Sodium 142, potassium 4.2, chloride 107, CO2 29.7, the BUN is 7, creatinine 0.62, GFR is 120, glucose is 100, CPK 435, PT 10.6, INR 1, APTT 32.2. Urinalysis is cloudy, pH is 5.5, specific gravity 1.012, positive nitrite, many WBCs are seen. IMPRESSION Multiple sclerosis with exacerbation probably related to UTI and possible sepsis. RECOMMENDATIONS: Would recommend treating her infection, hydrate the patient and will monitor neurologically. If possible, would recommend continuing the Imuran unless you feel this may be contraindicated because of her infection. Will hold off on Solu-Medrol for now to see if she improves with the antibiotics. If not, then we could institute Solu-Medrol. I would like to get an MRI of the brain and cervical spine as well to follow up on her MS. MD GERARDO Holbrook/MIROSLAVA /11:20 AM /12:06 PM
[2016-05-04] MEDS ORDERED: LORazepam 2 MG/ML VIAL IV PUSH PRN (13:30)
[2016-05-04] MEDS: SULFAMETHOXAZOLE-TRIMETHOPRIM DS 800-160 MG TAB PO SCH ×2 (14:17→22:09)
[2016-05-04] MEDS ORDERED: GADODIAMIDE PF 287 MG/ML 20 ML VIAL (for RAD MRI) IV ONE (15:38)
--- NOTE | 2016-05-04 16:21 | RADRPT ---
EXAM DATE/TIME: 05/04/2016 15:05 [facility] COMPARISON: No previous studies available for comparison. INDICATIONS : Multiple sclerosis. CONTRAST: 20 cc Omniscan (gadodiamide) IV MEDICAL HISTORY : Multiple sclerosis. Diabetes mellitus type 2. Chronic obstructive pulmonary disease. Hypertension SURGICAL HISTORY : Colostomy. Cholecystectomy. ENCOUNTER: Initial ACUITY: 1 day PAIN SCORE: 0/10 LOCATION: neck TECHNIQUE: Multiplanar, multisequence MRI examination of the cervical spine was performed. FINDINGS: The cervical cord is atrophic with diffusely increased signal on the T2 and inversion recovery sequen aurelio that could represent myelomalacia or chronic changes of multiple sclerosis. There is a focal cent ral moderate-sized disc protrusion at C5-6 which does result in focal moderate cord compression. No o ther discrete disc protrusions are present. There is no fracture or spondylolisthesis. No prevertebra l soft tissue swelling. No abnormal enhancement post contrast. CONCLUSION: 1. Atrophic cervical cord with increased T2 signal. Differential diagnosis includes chronic changes o f multiple sclerosis or myelomalacia secondary to other etiologies. There is no prior study for abdulaziz rison. 2. Focal moderate-sized central disc protrusion at C5-6 resulting in moderate cord compression. Tom Torres MD on May 04, 2016 at 16:12 Board Certified Radiologist. This report was verified electronically.
--- NOTE | 2016-05-04 16:56 | RADRPT ---
EXAM DATE/TIME: 05/04/2016 15:05 [facility] COMPARISON: No previous studies available for comparison. INDICATIONS : Multiple sclerosis. CONTRAST: 20 cc Omniscan (gadodiamide) IV MEDICAL HISTORY : Multiple sclerosis. Diabetes mellitus type 2. Chronic obstructive pulmonary disease. Hypertension SURGICAL HISTORY : Colostomy. Cholecystectomy. ENCOUNTER: Initial ACUITY: 1 day PAIN SCORE: 0/10 LOCATION: cranial TECHNIQUE: Multiplanar, multisequence MRI of the brain was performed both prior to and following the administrat ion of paramagnetic contrast. FINDINGS: CEREBRUM: The ventricles are normal for age. No evidence of midline shift, mass lesion, hemorrhage or acute in farction. No extraaxial fluid collections are seen. The pituitary gland and suprasellar cistern are normal in configuration. WHITE MATTER: Minimal signal abnormalities are seen in the white matter. POSTERIOR FOSSA: The cerebellum and brainstem are intact. The 4th ventricle is midline. The cerebellopontine angle is unremarkable. The cerebellar tonsils are normal in position. DIFFUSION IMAGING: No focal areas of restricted diffusion are seen. No evidence of acute infarction. EXTRACRANIAL: The visualized portions of the orbits and paranasal sinuses are unremarkable. POST-CONTRAST: No abnormal areas of parenchymal or dural enhancement. No evidence of blood-brain barrier breakdown. CONCLUSION: No significant white matter disease to suggest multiple sclerosis within the brain. Several tiny foca l signal abnormalities seen, commonly seen at this age. No recent infarct, mass, hemorrhage or shift. Tom Torres MD on May 04, 2016 at 16:48 Board Certified Radiologist. This report was verified electronically.
[2016-05-04 19:26] VITALS: BP 119/59; PULSE 73; RESP 18; TEMP 98.8; O2SAT 97
[2016-05-05] VITALS: BP 137/72; PULSE 78; RESP 18; TEMP 98; O2SAT 97
[2016-05-05] MEDS: HEPARIN SODIUM - SQ 10,000 UNITS/ML VIAL SQ SCH ×3 (02:43→20:05)
[2016-05-05] MEDS: ACETAMINOPHEN 325 MG TAB PO PRN ×2 (02:45→15:24)
[2016-05-05] MEDS: SODIUM CHLOR 0.9% 1000 ML INJ 1,000 ML IV SCH ×2 (02:47→12:00)
[2016-05-05 05:22] VITALS: BP 142/78; PULSE 87; RESP 18; TEMP 97.9; O2SAT 98
[2016-05-05 07:28] VITALS: BP 127/61; PULSE 62; RESP 18; TEMP 98.2; O2SAT 98
[2016-05-05] MEDS: ONDANSETRON HCL 4 MG/2 ML VIAL IV PUSH PRN (08:17)
--- NOTE | 2016-05-05 10:34 | HHI.PR ---
Subjective Remarks Follow up for sepsis, UTI, MS flare. The patient reports feeling better today. Weakness and pain has improved. No fevers or chills overnight. Discussed results of urine culture with the patient. She denies any dysuria or abdominal pain. The patient reports she already has nurses, aide, and PT coming to her home for HHC and performing wound care. She would like to continue this at discharge. She also has her son at home 7days a week. Objective Vitals Vital Signs Date Time Temp Pulse Resp B/P Pulse Ox O2 Delivery O2 Flow Rate FiO2 05/05/16 07:28 98.2 62 18 127/61 98 05/05/16 05:22 97.9 87 18 142/78 98 05/05/16 00:00 98.0 78 18 137/72 97 05/04/16 19:26 98.8 73 18 119/59 97 05/04/16 12:13 70 18 123/58 96 I/O 05/04/16 05/04/16 05/04/16 05/05/16 05/05/16 05/05/16 07:00 15:00 23:00 07:00 15:00 23:00 Intake Total 570 ml Balance 570 ml Intake Oral 120 ml IV Total 450 ml # Voids 2 Result Diagram: 05/04/16 0330 05/04/16 0330 Imaging Last Impressions Cervical Spine MRI 05/04/16 0000 Signed Impressions: Service Date/Time: Wednesday, May 04, 2016 15:05 - CONCLUSION: 1. Atrophic cervical cord with increased T2 signal. Differential diagnosis includes chronic changes of multiple sclerosis or myelomalacia secondary to other etiologies. There is no prior study for comparison. 2. Focal moderate-sized central disc protrusion at C5-6 resulting in moderate cord compression. Tom Torres MD Brain MRI 05/04/16 0000 Signed Impressions: Service Date/Time: Wednesday, May 04, 2016 15:05 - CONCLUSION: No significant white matter disease to suggest multiple sclerosis within the brain. Several tiny focal signal abnormalities seen, commonly seen at this age. No recent infarct, mass, hemorrhage or shift. Tom Torres MD Chest X-Ray 05/02/161956 Signed Impressions: Service Date/Time: Monday, May 02, 2016 20:11 - CONCLUSION: Linear increased density identified at the bases bilaterally likely representing some scarring or atelectasis. These findings were present previously and appear unchanged. Vin Blue MD Objective Remarks GENERAL: Well-nourished, well-developed female patient in NAD. Bedridden. SKIN: Warm and dry. Sacral ulceration 2 and ulceration at left breast. HEENT: Normocephalic. Atraumatic. Pupils equal and round. No scleral icterus. No injection or drainage. Mucous membranes pink and moist. NECK: Supple. Trachea midline. CARDIOVASCULAR: Regular rate and rhythm. S1, S2 noted. No murmur appreciated. RESPIRATORY: No accessory muscle use. Clear to auscultation. Breath sounds equal bilaterally. GASTROINTESTINAL: Abdomen soft, non-tender, nondistended. Normoactive bowel sounds x4. MUSCULOSKELETAL: Extremities without clubbing, cyanosis, or edema. NEUROLOGICAL: Awake and alert. Spastic contracted bilateral lower extremities with bilateral foot drop. Normal speech. PSYCHIATRIC: Appropriate mood and affect; insight and judgment normal. Medications and IVs Current Medications Medications (Trade) Dose Ordered Sig/Garrison Route Start Time Stop Time Status Last Admin (NS 1000 ml Inj) 1,000 ml @ 100 mls/hr Q10H IV 05/03/16 00:27 05/05/16 02:47 (NS Flush) 2 ml UNSCH PRN FLUSH 05/03/16 00:30 (NS Flush) 2 ml BID FLUSH 05/03/16 09:00 05/05/16 10:56 (Heparin Inj) 5,000 units Q8H SQ 05/03/16 09:00 05/05/16 10:57 (Narcan Inj) 0.4 mg UNSCH PRN IV 05/03/16 00:30 (Zofran Inj) 4 mg Q6HR PRN IV PUSH 05/03/16 03:45 05/05/16 08:17 (Imuran) 50 mg BID PO 05/03/16 09:00 05/05/16 10:57 (Urecholine) 25 mg QID PO 05/03/16 09:00 05/05/16 10:56 (Lyrica) 75 mg TID PO 05/03/16 09:00 05/05/16 10:56 (D50w (Vial) Inj) 25 ml UNSCH PRN IV PUSH 05/03/16 03:45 (Glucagon Inj) 1 mg UNSCH PRN OTHER 05/03/16 03:45 (Compazine Inj) 10 mg Q8H PRN IVS 05/03/16 09:15 (Msir) 15 mg Q8H PRN PO 05/03/16 15:45 05/03/16 15:32 (Tylenol) 650 mg Q6H PRN PO 05/03/16 09:15 05/05/16 02:45 Lorazepam 1 mg 1 mg ONCE PRN IV PUSH 05/04/16 13:30 05/06/16 13:29 05/04/16 14:34 (Zosyn 3.375 Gm Premix) 50 ml @ 100 mls/hr Q6H IV 05/05/16 09:00 05/05/16 10:56 A/P Problem List: (1) Sepsis ICD Code: A41.9 Status: Acute (2) UTI (urinary tract infection) ICD Code: N39.0 Status: Acute (3) Acute kidney injury ICD Code: N17.9 Status: Acute (4) Chronic pain ICD Code: G89.29 Status: Acute (5) Multiple sclerosis ICD Code: G35 Status: Acute Assessment and Plan 55-year-old AA female patient with PMH of multiple sclerosis diagnosed in 2004, bedridden for the past 5 years, HTN, DM, NAPOLEON, COPD, history of FELIPE but patient denies CKD, colostomy placed s/p bowel obstruction; presents to the ER 05/02 because she reports she has not urinated in the past 2-3 days, with generalized pain, weakness, and shortness of breath Sepsis with UTI: UA with pos nitrites, large leuks, many WBCs/bacteria. -s/p 2L IVF bolus in the ER, and continue IVF at 100cc/hr -Given IV Rocephin, then switched to po Bactrim -Urine culture resulted with Citrobacter Amalonaticus -Change antibiotics to IV Zosyn for now -Consult ID -Blood culture with no growth to date -BP improved, sepsis resolved Urinary incontinence: with sacrococcyx/coccyx wounds and UTI -keep area clean and dry Sacral/coccyx wounds, and L breast wound -consult wound care, appreciate recommendations -patient needs wave bed, repositioning every 2 hrs Rhabdomyolysis- CPK 1016, with sepsis in a bedridden patient -Given IVF boluses, now on maintenance IVF -Repeat CPK 435, Resolved. Acute kidney injury: suspect secondary to dehydration -On IVF -repeat labs with improvement back to normal, Cr 0.70 -resolved, avoid nephrotoxins. Multiple sclerosis continue azathioprine -Consult Neurology, Patient known to Dr. Hays -Seen by Dr. Phillips, hold off on IV steroids for now, patient improving with antibiotics -Brain MRI and C-spine MRI images reviewed History of hypertension: Patient is hypotensive. -held home lisinopril at this time. Generalized pain: acute on chronic -continue patient's home medication morphine IR 15 mg tid prn -added tylenol as needed, encouraged patient to use tylenol instead with low BP DVT prophylaxis: heparin subcutaneous Written by Alba Mccormack, acting as scribe for Dr. Ralph on 05/05/16 at 10:32. The documentation accurately reflects the work performed [id number] by me on at 10:32. Discharge Planning Possible discharge in 1-[address] [facility] at discharge. Problem Qualifiers (1) Sepsis: Qualified Code: A41.9 - Sepsis, due to unspecified organism (2) UTI (urinary tract infection): Qualified Code: N30.00 - Acute cystitis without hematuria Alba Mccormack PA-C May 05, 2016 10:34 Alice Ralph DO May 05, 2016 16:25
[2016-05-05] MEDS: PREGABALIN 75 MG CAP PO SCH ×3 (10:56→20:04)
[2016-05-05] MEDS: SODIUM CHLORIDE 0.9% FLUSH 5 ML FLUSH FLUSH SCH ×2 (10:56→21:50)
[2016-05-05] MEDS: BETHANECHOL CHL 25 MG TAB PO SCH ×4 (10:56→21:49)
[2016-05-05] MEDS: PIPERACIL-TAZO 3.375 GM PREMIX 50 ML IV SCH ×3 (10:56→21:50)
[2016-05-05] MEDS: azaTHIOprine 50 MG TAB PO SCH ×2 (10:57→21:50)
[2016-05-05] MEDS: INSULIN ASPART SUPPLEMENTAL SCALE SQ SCH ×3 (11:00→21:00)
[2016-05-05 12:10] VITALS: BP 129/65; PULSE 64; RESP 19; TEMP 98.2; O2SAT 99
--- NOTE | 2016-05-05 12:26 | PD.CONS ---
History of Present Illness Service Infectious disease Consult Requested By Marlena Ross Reason for Consult Evaluate patient with Citrobacter UTI Primary Care Physician Chanelle Khan MD Diagnoses: History of Present Illness Patient seen and examined. Records reviewed. Patient is a 55-year-old female with multiple sclerosis, has been bedridden, admitted to the hospital for further evaluation of nausea and vomiting. She also noted that she's not been urinating a lot. Patient stated that she has had diagnoses of bladder infection and has been on multiple antibiotic. The last course of antibiotic was about 2 weeks ago. Patient has urinary incontinence. He has not had any imaging studies done of her kidneys. She denies any fever or chills or sweats. No abdominal pain. No diarrhea. She denies any GI complaints. Patient has not been febrile since admission. Her WBC is normal. Her urine culture has Citrobacter, and has a lot of resistance patterns. Patient's by mouth intake has not been very good. Infectious disease consultation has been requested to evaluate the patient. Review of Systems Constitutional: DENIES: Fever Eyes: DENIES: Eye pain Ears, nose, mouth, throat: DENIES: Nasal discharge, Oral lesions, Throat pain, Ear Pain, Running Nose, Sinus Pain Respiratory: DENIES: Cough, Shortness of breath Cardiovascular: DENIES: Chest pain, Palpitations Gastrointestinal: COMPLAINS OF: Nausea, Vomiting, DENIES: Abdominal pain, Diarrhea Genitourinary: COMPLAINS OF: Urinary incontinence, DENIES: Dysuria Musculoskeletal: COMPLAINS OF: Stiffness, DENIES: Joint pain, Joint Swelling Neurologic: DENIES: Headache Psychiatric: DENIES: Anxiety, Hallucinations Past Family Social History Allergies: Coded Allergies: No Known Allergies (Verified , 05/02/16) Past Medical History Multiple sclerosis diagnosed in 2004, patient has been bedridden for the past 5 years Hypertension Diabetes mellitus Sleep apnea COPD History of acute kidney injury but patient denies chronic kidney disease Colostomy placed status post bowel obstruction Past Surgical History Colostomy placement Cholecystectomy Lysis of adhesions Hemorrhoidectomy Active Ordered Medications Tylenol Imuran Urecholine Heparin Insulin Ativan Morphine Zofran Zosyn Lyrica Compazine Social History No ETOH No smoking No drug use Physical Exam Vital Signs Vital Signs Date Time Temp Pulse Resp B/P Pulse Ox O2 Delivery O2 Flow Rate FiO2 05/05/16 12:10 98.2 64 19 129/65 99 05/05/16 07:28 98.2 62 18 127/61 98 05/05/16 05:22 97.9 87 18 142/78 98 05/05/16 00:00 98.0 78 18 137/72 97 05/04/16 19:26 98.8 73 18 119/59 97 Physical Exam GENERAL: This is a well-nourished, well-developed patient, awake and alert, in no apparent distress. SKIN: Cool and dry. No generalized rash or ecchymosis. HEAD: Atraumatic. Normocephalic. No temporal or scalp tenderness. EYES: [place] conjunctivae. Pupils equal round and reactive. Extraocular motions intact. No scleral icterus. No injection or drainage. ENT: Nose without bleeding, or purulent drainage. Moist oral mucosa. Throat without erythema, tonsillar hypertrophy or exudate. Uvula midline. Airway patent. NECK: Trachea midline. No JVD or lymphadenopathy. Supple, nontender, no meningeal signs. CARDIOVASCULAR: Regular rate and rhythm without murmurs, gallops, or rubs. RESPIRATORY: Clear to auscultation. Breath sounds equal bilaterally. No wheezes , rales, or rhonchi. GASTROINTESTINAL: Abdomen soft, non-tender, nondistended. No hepato-splenomegaly , or palpable masses. No guarding. Colostomy is functioning MUSCULOSKELETAL: Extremities without clubbing, cyanosis. Has pedal edema. No joint tenderness, effusion, or edema noted. No calf tenderness. Negative Homans sign bilaterally. NEUROLOGICAL: Awake and alert. Cranial nerves II through XII intact. Normal speech. PSYCH: Normal affect, calm and cooperative LINE: PIV with no evidence of infection Laboratory Date/Time Procedure Status Source Growth 05/02/16 22:35 Urine Culture - Final Complete Urine Catheterized Urine Citrobacter Amalonaticus 05/02/16 20:13 Aerobic Blood Culture - Preliminary Resulted Blood Peripheral NO GROWTH IN 3 DAYS 05/02/16 20:13 Anaerobic Blood Culture - Preliminary Resulted Blood Peripheral NO GROWTH IN 3 DAYS Result Diagram: 05/04/16 0330 05/04/16 0330 Imaging RADIOLOGY STUDIES/FILMS REVIEWED Cervical Spine MRI 05/04/16 0000 Signed Impressions: Service Date/Time: Wednesday, May 04, 2016 15:05 - CONCLUSION: 1. Atrophic cervical cord with increased T2 signal. Differential diagnosis includes chronic changes of multiple sclerosis or myelomalacia secondary to other etiologies. There is no prior study for comparison. 2. Focal moderate-sized central disc protrusion at C5-6 resulting in moderate cord compression. Tom Torres MD Brain MRI 05/04/16 0000 Signed Impressions: Service Date/Time: Wednesday, May 04, 2016 15:05 - CONCLUSION: No significant white matter disease to suggest multiple sclerosis within the brain. Several tiny focal signal abnormalities seen, commonly seen at this age. No recent infarct, mass, hemorrhage or shift. Tom Torres MD Chest X-Ray 05/02/16 195 Signed Impressions: Service Date/Time: Monday, May 02, 2016 20:11 - CONCLUSION: Linear increased density identified at the bases bilaterally likely representing some scarring or atelectasis. These findings were present previously and appear unchanged. Vin Blue MD Assessment and Plan Assessment and Plan IMPRESSION UTI, C/S with Citrobactwer - ?incomplete emptying Known MS RECOMMENDATION Continue Zosyn Bladder scan renal US Follow C/S Monitor progress Will determine course of Abx once work-up is completed I will follow along with you Thank you for this consultation Discussed Condition With Explained plan to patient Marisa Le MD May 05, 2016 12:26
[2016-05-05 16:00] VITALS: BP 128/69; PULSE 64; RESP 18; TEMP 98.3; O2SAT 98
[2016-05-05 22:50] VITALS: BP 123/70; PULSE 69; RESP 18; TEMP 97.7; O2SAT 98
[2016-05-06] MEDS: PIPERACIL-TAZO 3.375 GM PREMIX 50 ML IV SCH ×4 (02:23→21:21)
[2016-05-06] MEDS: SODIUM CHLOR 0.9% 1000 ML INJ 1,000 ML IV SCH ×4 (02:23→22:54)
[2016-05-06] MEDS: MORPHINE SULFATE 15 MG TAB PO PRN (02:23)
[2016-05-06] MEDS: HEPARIN SODIUM - SQ 10,000 UNITS/ML VIAL SQ SCH ×3 (02:24→17:28)
[2016-05-06 03:50] VITALS: BP 121/64; PULSE 61; RESP 18; TEMP 97.3; O2SAT 98
[2016-05-06] MEDS: INSULIN ASPART SUPPLEMENTAL SCALE SQ SCH ×4 (05:38→21:00)
[2016-05-06 08:00] VITALS: BP 110/65; PULSE 70; RESP 16; TEMP 97.8; O2SAT 99
[2016-05-06] MEDS: PREGABALIN 75 MG CAP PO SCH ×2 (08:28→12:12)
[2016-05-06] MEDS: BETHANECHOL CHL 25 MG TAB PO SCH ×4 (08:29→21:22)
[2016-05-06] MEDS: SODIUM CHLORIDE 0.9% FLUSH 5 ML FLUSH FLUSH SCH ×2 (08:29→21:00)
[2016-05-06] MEDS: azaTHIOprine 50 MG TAB PO SCH ×2 (08:30→21:22)
[2016-05-06] MEDS: ONDANSETRON HCL 4 MG/2 ML VIAL IV PUSH PRN (08:35)
[2016-05-06] MEDS: ACETAMINOPHEN 325 MG TAB PO PRN ×2 (10:34→18:59)
[2016-05-06 12:00] VITALS: BP 122/73; PULSE 66; RESP 16; TEMP 98.4; O2SAT 99
--- NOTE | 2016-05-06 12:30 | RADRPT ---
EXAM DATE/TIME: 05/06/2016 11:49 [place] COMPARISON: No previous studies available for comparison. EXTERNAL COMPARISON : [facility], CT ABDOMEN & PELVIS W/O CONTRAST, September 05, 2013[facility], CT ABDOMEN & P DEDRICK W CONTRAST, May 05, 2013. [facility], US ABDOMEN, COMPLETE, February 10, 2011. INDICATIONS : Recurrent UTI. MEDICAL HISTORY : Chronic obstructive pulmonary disease. Multiple sclerosis. Diabetes. SURGICAL HISTORY : Appendectomy. Cholecystectomy. Hysterectomy. Abdominal surgery, lysis of adhesions. Hemorrhoidectomy. ENCOUNTER: Subsequent ACUITY: 1 day PAIN SCORE: 2/10 LOCATION: Bilateral flank MEASUREMENTS: RIGHT KIDNEY: 10.1 x 4.2 x 4.9 cm LEFT KIDNEY: 11.4 x 5.5 x 5.6 cm FINDINGS: RIGHT KIDNEY: Renal cortex is normal in thickness and echotexture. No hydronephrosis, stone, or mass. LEFT KIDNEY: Renal cortex is normal in thickness and echotexture. No hydronephrosis, stone, or mass. BLADDER: Within normal limits given the degree of distension. CONCLUSION: Normal renal sonogram. Isaiah Camp MD on May 06, 2016 at 12:27 Board Certified Radiologist. This report was verified electronically.
--- NOTE | 2016-05-06 12:32 | HHI.PR ---
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 Plan neurosurgery consult for cervical stenosis increase lyrica for neuropathic pain Diagnosis/Plan: Subjective Subjective Comments No acute events reported still feels weak in UE and LE, pain in bilateral hands--burning type pain Active Medications Current Medications Medications (Trade) Dose Ordered Sig/Garrison Route Start Time Stop Time Status Last Admin (NS 1000 ml Inj) 1,000 ml @ 100 mls/hr Q10H IV 05/03/16 00:27 05/06/16 08:29 (NS Flush) 2 ml UNSCH PRN FLUSH 05/03/16 00:30 (NS Flush) 2 ml BID FLUSH 05/03/16 09:00 05/06/16 08:29 (Heparin Inj) 5,000 units Q8H SQ 05/03/16 09:00 05/06/16 08:29 (Narcan Inj) 0.4 mg UNSCH PRN IV 05/03/16 00:30 (Zofran Inj) 4 mg Q6HR PRN IV PUSH 05/03/16 03:45 05/06/16 08:35 (Imuran) 50 mg BID PO 05/03/16 09:00 05/06/16 08:30 (Urecholine) 25 mg QID PO 05/03/16 09:00 05/06/16 12:12 (D50w (Vial) Inj) 25 ml UNSCH PRN IV PUSH 05/03/16 03:45 (Glucagon Inj) 1 mg UNSCH PRN OTHER 05/03/16 03:45 (Compazine Inj) 10 mg Q8H PRN IVS 05/03/16 09:15 (Msir) 15 mg Q8H PRN PO 05/03/16 15:45 05/06/16 02:23 (Tylenol) 650 mg Q6H PRN PO 05/03/16 09:15 05/06/16 10:34 Lorazepam 1 mg 1 mg ONCE PRN IV PUSH 05/04/16 13:30 05/06/16 13:29 05/04/16 14:34 (Zosyn 3.375 Gm Premix) 50 ml @ 100 mls/hr Q6H IV 05/05/16 09:00 05/06/16 08:29 (Lyrica) 100 mg TID PO 05/06/16 13:00 UNV Allergies Allergies Coded Allergies No Known Allergies (Verified05/02/16) Review of Systems Constitutional: Negative Eye: Negative Respiratory: Negative Cardiovascular: Negative Gastrointestinal: Negative [place]/Lymph: Negative Musculoskeletal: Negative Neurologic: Negative except HPI Psychiatric: Negative All other ROS: ROS reviewed as documented in chart Exam I&O / VS 05/05/16 05/05/16 05/06/16 15:00 23:00 07:00 Intake Total 1800 ml 850 ml Output Total 400 ml Balance 1400 ml 850 ml Intake Oral 700 ml 0 ml IV Total 1100 ml 850 ml Output Stool Total 400 ml # Voids 4 6 # Bowel Movements 0 Vital Signs Date Time Temp Pulse Resp B/P Pulse Ox O2 Delivery O2 Flow Rate FiO2 05/06/16 12:00 98.4 66 16 122/73 99 05/06/16 10:22 Nasal Cannula 1.00 05/06/16 08:00 97.8 70 16 110/65 99 05/06/16 03:50 Nasal Cannula 1.00 05/06/16 03:50 97.3 61 18 121/64 98 05/05/16 22:50 Nasal Cannula 1.00 05/05/16 22:50 97.7 69 18 123/70 98 05/05/16 16:24 20 05/05/16 16:00 98.3 64 18 128/69 98 General: Alert and Oriented Eye: EOMI Respiratory: Lungs CTA Cardiology: Normal rate Neurologic: Alert, Oriented Psychiatric: Cooperative, Appropriate mood & affect, Normal judgement Exam Comments 4/5 BUE and BLE DTR 2+ BLE and BUE Objective Radiology Results MRI brain--normal MRI cervical spine--demyelinating plaques, but also stenosis with cord compression at C56 Micro and Labs Date/Time Procedure Status Source Growth 05/02/16 22:35 Urine Culture - Final Complete Urine Catheterized Urine Citrobacter Amalonaticus 05/02/16 20:13 Aerobic Blood Culture - Preliminary Resulted Blood Peripheral NO GROWTH IN 4 DAYS 05/02/16 20:13 Anaerobic Blood Culture - Preliminary Resulted Blood Peripheral NO GROWTH IN 4 DAYS Mike Phillips PhD May 06, 2016 12:32
--- NOTE | 2016-05-06 12:39 | HHI.IDPN ---
Subjective Subjective Remarks Notes reviewed [place] Neurology notes reviewed Bladder scan pending Antibiotics Zosyn Lines PIV Past Medical History Multiple sclerosis diagnosed in 2005, patient has been bedridden for the past 5 years Hypertension Diabetes mellitus Sleep apnea COPD History of acute kidney injury but patient denies chronic kidney disease Colostomy placed status post bowel obstruction Past Surgical History Colostomy placement Cholecystectomy Lysis of adhesions Hemorrhoidectomy Allergies: Coded Allergies: No Known Allergies (Verified , 05/02/16) Objective . Vital Signs Date Time Temp Pulse Resp B/P Pulse Ox O2 Delivery O2 Flow Rate FiO2 05/06/16 12:00 98.4 66 16 122/73 99 05/06/16 10:22 Nasal Cannula 1.00 05/06/16 08:00 97.8 70 16 110/65 99 05/06/16 03:50 Nasal Cannula 1.00 05/06/16 03:50 97.3 61 18 121/64 98 05/05/16 22:50 Nasal Cannula 1.00 05/05/16 22:50 97.7 69 18 123/70 98 05/05/16 16:24 20 05/05/16 16:00 98.3 64 18 128/69 98 05/05/16 05/05/16 05/06/16 15:00 23:00 07:00 Intake Total 1800 ml 850 ml Output Total 400 ml Balance 1400 ml 850 ml Intake Oral 700 ml 0 ml IV Total 1100 ml 850 ml Output Stool Total 400 ml # Voids 4 6 # Bowel Movements 0 Imaging Cervical Spine MRI 05/04/16 0000 Signed Impressions: Service Date/Time: Wednesday, May 04, 2016 15:05 - CONCLUSION: 1. Atrophic cervical cord with increased T2 signal. Differential diagnosis includes chronic changes of multiple sclerosis or myelomalacia secondary to other etiologies. There is no prior study for comparison. 2. Focal moderate-sized central disc protrusion at C5-6 resulting in moderate cord compression. Tom Torres MD Brain MRI 05/04/16 0000 Signed Impressions: Service Date/Time: Wednesday, May 04, 2016 15:05 - CONCLUSION: No significant white matter disease to suggest multiple sclerosis within the brain. Several tiny focal signal abnormalities seen, commonly seen at this age. No recent infarct, mass, hemorrhage or shift. Tom Torres MD Chest X-Ray 05/02/161956 Signed Impressions: Service Date/Time: Monday, May 02, 2016 20:11 - CONCLUSION: Linear increased density identified at the bases bilaterally likely representing some scarring or atelectasis. These findings were present previously and appear unchanged. Vin Blue MD Physical Exam GENERAL: awake and alert, in no apparent distress. SKIN: Cool and dry. No generalized rash or ecchymosis. HEENT: [place] conjunctivae. No scleral icterus. Moist oral mucosa. NECK: Supple, nontender, no meningeal signs. CARDIOVASCULAR: Regular rate and rhythm without murmurs, gallops, or rubs. RESPIRATORY: Clear to auscultation. Breath sounds equal bilaterally. No wheezes , rales, or rhonchi. GASTROINTESTINAL: Abdomen soft, non-tender, nondistended. No hepato-splenomegaly , or palpable masses. No guarding. Colostomy is functioning MUSCULOSKELETAL: Extremities without clubbing, cyanosis. Has pedal edema. No calf tenderness. NEUROLOGICAL: Awake and alert. Cranial nerves II through XII intact. Normal speech. PSYCH: Normal affect, calm and cooperative LINE: PIV with no evidence of infection Assessment & Plan Remarks IMPRESSION UTI, C/S with Citrobacter - ?incomplete emptying - has recurrent UTI Known MS RECOMMENDATION Continue Zosyn Bladder scan Renal US Follow C/S Monitor progress Will determine course of Abx once work-up is completed Marisa Le MD May 06, 2016 12:39
[2016-05-06] MEDS ORDERED: PREGABALIN 100 MG CAP PO SCH (13:00)
--- NOTE | 2016-05-06 13:35 | HHI.PR ---
Objective Vitals Vital Signs Date Time Temp Pulse Resp B/P Pulse Ox O2 Delivery O2 Flow Rate FiO2 05/06/16 12:00 98.4 66 16 122/73 99 05/06/16 10:22 Nasal Cannula 1.00 05/06/16 08:00 97.8 70 16 110/65 99 05/06/16 03:50 Nasal Cannula 1.00 05/06/16 03:50 97.3 61 18 121/64 98 05/05/16 22:50 Nasal Cannula 1.00 05/05/16 22:50 97.7 69 18 123/70 98 05/05/16 16:24 20 05/05/16 16:00 98.3 64 18 128/69 98 I/O 05/05/16 05/05/16 05/05/16 05/06/16 05/06/16 05/06/16 07:00 15:00 23:00 07:00 15:00 23:00 Intake Total 1800 ml 850 ml Output Total 400 ml Balance 1400 ml 850 ml Intake Oral 700 ml 0 ml IV Total 1100 ml 850 ml Output Stool Total 400 ml # Voids 4 6 # Bowel Movements 0 Result Diagram: 05/04/16 0330 05/04/16 0330 A/P Problem List: (1) Sepsis ICD Code: A41.9 Status: Acute (2) UTI (urinary tract infection) ICD Code: N39.0 Status: Acute (3) Acute kidney injury ICD Code: N17.9 Status: Acute (4) Chronic pain ICD Code: G89.29 Status: Acute (5) Multiple sclerosis ICD Code: G35 Status: Acute Assessment and Plan 55-year-old AA female patient with PMH of multiple sclerosis diagnosed in 2004, bedridden for the past 5 years, HTN, DM, [place], COPD, history of FELIPE but patient denies CKD, colostomy placed s/p bowel obstruction; presents to the ER 05/02 because she reports she has not urinated in the past 2-3 days, with generalized pain, weakness, and shortness of breath Sepsis with UTI: UA with pos nitrites, large leuks, many WBCs/bacteria. -s/p 2L IVF bolus in the ER, and continue IVF at 100cc/hr -Given IV Rocephin, then switched to po Bactrim -Urine culture resulted with Citrobacter Amalonaticus -Change antibiotics to IV Zosyn for now -Consult ID -Blood culture with no growth to date -BP improved, sepsis resolved Urinary incontinence: with sacrococcyx/coccyx wounds and UTI -keep area clean and dry Sacral/coccyx wounds, and L breast wound -consult wound care, appreciate recommendations -patient needs wave bed, repositioning every 2 hrs Rhabdomyolysis- CPK 1016, with sepsis in a bedridden patient -Given IVF boluses, now on maintenance IVF -Repeat CPK 435, Resolved. Acute kidney injury: suspect secondary to dehydration -On IVF -repeat labs with improvement back to normal, Cr 0.70 -resolved, avoid nephrotoxins. Multiple sclerosis continue azathioprine -Consult Neurology, Patient known to Dr. Hays -Seen by Dr. Phillips, hold off on IV steroids for now, patient improving with antibiotics -Brain MRI and C-spine MRI images reviewed History of hypertension: Patient is hypotensive. -held home lisinopril at this time. Generalized pain: acute on chronic -continue patient's home medication morphine IR 15 mg tid prn -added tylenol as needed, encouraged patient to use tylenol instead with low BP DVT prophylaxis: heparin subcutaneous Written by Alba Mccormack, acting as scribe for Dr. Ralph on 05/05/16 at 10:32. The documentation accurately reflects the work performed [id number] by me on at 10:32. Problem Qualifiers (1) Sepsis: Qualified Code: A41.9 - Sepsis, due to unspecified organism (2) UTI (urinary tract infection): Qualified Code: N30.00 - Acute cystitis without hematuria Alice Ralph DO May 06, 2016 1:35 pm Alba Mccormack PA-C May 06, 2016 3:23 pm
[2016-05-06] MEDS ORDERED: MENTHOL/METHYL SALICYLATE OINT 30 GM TUBE TOP PRN (15:30)
--- NOTE | 2016-05-06 15:34 | HHI.PR ---
Subjective Remarks Follow up for sepsis, UTI, MS flare. The patient reports feeling only slightly better, still with generalized weakness. She also reports bilateral hand tenderness to light touch, requesting Voltaren cream. Denies fevers/chills. Does report urinary frequency. She has no other medical complaints at this time. Objective Vitals Vital Signs Date Time Temp Pulse Resp B/P Pulse Ox O2 Delivery O2 Flow Rate FiO2 05/06/16 12:00 98.4 66 16 122/73 99 05/06/16 10:22 Nasal Cannula 1.00 05/06/16 08:00 97.8 70 16 110/65 99 05/06/16 03:50 Nasal Cannula 1.00 05/06/16 03:50 97.3 61 18 121/64 98 05/05/16 22:50 Nasal Cannula 1.00 05/05/16 22:50 97.7 69 18 123/70 98 05/05/16 16:24 20 05/05/16 16:00 98.3 64 18 128/69 98 I/O 05/05/16 05/05/16 05/05/16 05/06/16 05/06/16 05/06/16 07:00 15:00 23:00 07:00 15:00 23:00 Intake Total 1800 ml 850 ml Output Total 400 ml Balance 1400 ml 850 ml Intake Oral 700 ml 0 ml IV Total 1100 ml 850 ml Output Stool Total 400 ml # Voids 4 6 # Bowel Movements 0 Result Diagram: 05/04/16 0330 05/04/16 0330 Imaging Last Impressions Renal Ultrasound 05/06/16 0000 Signed Impressions: Service Date/Time: Friday, May 06, 2016 11:49 - CONCLUSION: Normal renal sonogram. Isaiah Camp MD Cervical Spine MRI 05/04/16 0000 Signed Impressions: Service Date/Time: Wednesday, May 04, 2016 15:05 - CONCLUSION: 1. Atrophic cervical cord with increased T2 signal. Differential diagnosis includes chronic changes of multiple sclerosis or myelomalacia secondary to other etiologies. There is no prior study for comparison. 2. Focal moderate-sized central disc protrusion at C5-6 resulting in moderate cord compression. Tom Torres MD Brain MRI 05/04/16 0000 Signed Impressions: Service Date/Time: Wednesday, May 04, 2016 15:05 - CONCLUSION: No significant white matter disease to suggest multiple sclerosis within the brain. Several tiny focal signal abnormalities seen, commonly seen at this age. No recent infarct, mass, hemorrhage or shift. Tom Torres MD Chest X-Ray 05/02/161956 Signed Impressions: Service Date/Time: Monday, May 02, 2016 20:11 - CONCLUSION: Linear increased density identified at the bases bilaterally likely representing some scarring or atelectasis. These findings were present previously and appear unchanged. Vin Blue MD Objective Remarks GENERAL: Well-nourished, well-developed female patient in NAD. Bedridden. SKIN: Warm and dry. Sacral ulceration 2 and ulceration at left breast. HEENT: Normocephalic. Atraumatic. Pupils equal and round. No scleral icterus. No injection or drainage. Mucous membranes pink and moist. NECK: Supple. Trachea midline. CARDIOVASCULAR: Regular rate and rhythm. S1, S2 noted. No murmur appreciated. RESPIRATORY: No accessory muscle use. Clear to auscultation. Breath sounds equal bilaterally. GASTROINTESTINAL: Abdomen soft, non-tender, nondistended. Normoactive bowel sounds x4. MUSCULOSKELETAL: Extremities without clubbing, cyanosis, or edema. NEUROLOGICAL: Awake and alert. Spastic contracted bilateral lower extremities with bilateral foot drop. Normal speech. PSYCHIATRIC: Appropriate mood and affect; insight and judgment normal. Medications and IVs Current Medications Medications (Trade) Dose Ordered Sig/Garrison Route Start Time Stop Time Status Last Admin (NS 1000 ml Inj) 1,000 ml @ 100 mls/hr Q10H IV 05/03/16 00:27 05/06/16 08:29 (NS Flush) 2 ml UNSCH PRN FLUSH 05/03/16 00:30 (NS Flush) 2 ml BID FLUSH 05/03/16 09:00 05/06/16 08:29 (Heparin Inj) 5,000 units Q8H SQ 05/03/16 09:00 05/06/16 08:29 (Narcan Inj) 0.4 mg UNSCH PRN IV 05/03/16 00:30 (Zofran Inj) 4 mg Q6HR PRN IV PUSH 05/03/16 03:45 05/06/16 08:35 (Imuran) 50 mg BID PO 05/03/16 09:00 05/06/16 08:30 (Urecholine) 25 mg QID PO 05/03/16 09:00 05/06/16 12:12 (D50w (Vial) Inj) 25 ml UNSCH PRN IV PUSH 05/03/16 03:45 (Glucagon Inj) 1 mg UNSCH PRN OTHER 05/03/16 03:45 (Compazine Inj) 10 mg Q8H PRN IVS 05/03/16 09:15 (Msir) 15 mg Q8H PRN PO 05/03/16 15:45 05/06/16 02:23 Acetaminophen 650 mg 650 mg Q6H PRN PO 05/03/16 09:15 05/06/16 10:34 (Zosyn 3.375 Gm Premix) 50 ml @ 100 mls/hr Q6H IV 05/05/16 09:00 05/06/16 15:09 (Lyrica) 100 mg TID PO 05/06/16 18:00 A/P Problem List: (1) Sepsis ICD Code: A41.9 Status: Acute (2) UTI (urinary tract infection) ICD Code: N39.0 Status: Acute (3) Acute kidney injury ICD Code: N17.9 Status: Acute (4) Chronic pain ICD Code: G89.29 Status: Acute (5) Multiple sclerosis ICD Code: G35 Status: Acute Assessment and Plan 55-year-old AA female patient with PMH of multiple sclerosis diagnosed in 2004, bedridden for the past 5 years, HTN, DM, [place], COPD, history of FELIPE but patient denies CKD, colostomy placed s/p bowel obstruction; presents to the ER 05/02 because she reports she has not urinated in the past 2-3 days, with generalized pain, weakness, and shortness of breath Sepsis with UTI: UA with pos nitrites, large leuks, many WBCs/bacteria. -s/p 2L IVF bolus in the ER, and continue IVF at 100cc/hr -Urine culture resulted with Citrobacter Amalonaticus -S/p IV Rocephin, then po Bactrim, now with urine culture resulted, Changed antibiotics to IV Zosyn -Consult ID, appreciate recommendations -Blood culture with no growth to date -BP improved, sepsis resolved Urinary frequency/incontinence, likely incomplete voiding: with sacrococcyx/ coccyx wounds and UTI -keep area clean and dry -check bladder U/S Sacral/coccyx wounds, and L breast wound -consult wound care, appreciate recommendations -patient needs wave bed, repositioning every 2 hrs Rhabdomyolysis- CPK 1016, with sepsis in a bedridden patient -Given IVF boluses, now on maintenance IVF -Repeat CPK 435, Resolved. Acute kidney injury: suspect secondary to dehydration -On IVF -repeat labs with improvement back to normal, Cr 0.70 -resolved, avoid nephrotoxins. Multiple sclerosis: continue azathioprine -Consult Neurology, Patient known to Dr. Hays -Seen by Dr. Phillips, hold off on IV steroids for now, patient improving with antibiotics -Brain MRI and C-spine MRI images reviewed Cervical Stenosis: seen on C-spine MRI, could be contributing to weakness -neurology consulted neurosurgeon History of hypertension: Patient is hypotensive. -held home lisinopril at this time. Generalized pain: acute on chronic -continue patient's home medication morphine IR 15 mg tid prn -added tylenol as needed, encouraged patient to use tylenol instead with low BP -bilateral hand pain, patient requested Voltaren cream however discussed with pharmacy, no topical NSAID, only has [place], will order DVT prophylaxis: heparin subcutaneous Written by Alba Mccormack, acting as scribe for Dr. Ralph on 05/06/16 at 15:02. The documentation accurately reflects the work performed [id number] by me on at 15:02. Discharge Planning Possible discharge in 1-2 days. Continue [facility] at discharge. Problem Qualifiers (1) Sepsis: Qualified Code: A41.9 - Sepsis, due to unspecified organism (2) UTI (urinary tract infection): Qualified Code: N30.00 - Acute cystitis without hematuria Alba Mccormack PA-C May 06, 2016 15:34 Alice Ralph DO May 06, 2016 17:49
[2016-05-06 16:00] VITALS: BP 113/68; PULSE 58; RESP 16; TEMP 97.9; O2SAT 99
[2016-05-06] MEDS: PREGABALIN 100 MG CAP PO SCH (17:28)
--- NOTE | 2016-05-06 17:35 | PD.CONS ---
HPI Consult Requested By Primary Care Physician Chanelle Khan MD History of Present Illness This is a 55-year-old female patient with past medical history of multiple sclerosis diagnosed in 2004. She has been bedridden for the past 5 years. She also has arterial hypertension, diabetes mellitus, sleep apnea, COPD kidney disease, colostomy placed status post bowel obstruction. She was brought to theemergency department today because she reports she has not urinated in the past 2-3 days. Patient reports over the past 2 weeks she has had nausea and vomited approximately 3 times will she is sleeping she wakes up vomiting. She also reports intermittent periods of shortness of breath worse than her typical COPD. She reports chronic generalized pain, for which she takes morphine as needed at home. She denies fevers chills chest pain, or change in colostomy output. Patient reports she has not been eating or drinking much. MRI cervical spine as done which showed severe stenosis. Past Family Social History Allergies: Coded Allergies: No Known Allergies (Verified , 05/02/16) Past Medical History multiple sclerosis diagnosed in 2004, patient has been bedridden for the past 5 years, hypertension, diabetes mellitus, sleep apnea, COPD history of acute kidney injury but patient denies chronic kidney disease, colostomy placed status post bowel obstruction Past Surgical History Colostomy placement, cholecystectomy, lysis of adhesions, hemorrhoidectomy Reported Medications Lantus Solostar Pen Inj (Insulin Glargine) 300 Unit/3 Ml Pen 1 Units SQ Lyrica (Pregabalin) 75 Mg Cap 75 Mg PO TID Alendronate (Alendronate Sodium) 70 Mg Tab 70 Mg PO Q7D Ondansetron (Ondansetron HCl) 8 Mg Tab 8 Mg PO TID Calcium 600 Mg Tab 600 Mg PO DAILY Lisinopril 5 Mg Tab 5 Mg PO DAILY Bethanechol 25 Mg Tab 25 Mg PO QID Vitamin D (Cholecalciferol) 400 Unit/Ml Drops 400 Units PO DAILY Morphine IR (Morphine Sulfate) 15 Mg Tab 15 Mg PO Q4H PRN Azathioprine 50 Mg Tab 50 Mg PO BID Hazardous agent use appropriate precautions for handling and disposal. Clonazepam 0.5 Mg Tab 0.5 Mg PO BID Humalog Kwikpen Pen Inj (Insulin Lispro (Human) Inj) 300 Unit/3 Ml Pen 1 Units SQ Active Ordered Medications Current Medications IV Flush 2 ml 2 ml UNSCH PRN IVF FLUSH AFTER USING IV ACCESS; Start 05/02/16 at 20:00; Stop 05/03/16 at 00:33; Status DC Sodium Chloride 1,000 ml @ 1,000 mls/hr Q1H IV Last administered on 05/02/16 20:23; Start 05/02/16 at 20:03; Stop 05/02/16 at 21:02; Status DC Sodium Chloride 1,000 ml @ 1,000 mls/hr Q1H IV Last administered on 05/02/16 20:24; Start 05/02/16 at 20:03; Stop 05/02/16 at 21:02; Status DC Sodium Chloride (NS 1000 ml Inj) 1,000 ml @ 100 mls/hr Q10H IV Last administered on 05/06/16 08:29; Start 05/03/16 at 00:27 IV Flush (NS Flush) 2 ml UNSCH PRN FLUSH FLUSH AFTER USING IV ACCESS; Start at 00:30 IV Flush (NS Flush) 2 ml BID FLUSH Last administered on 05/06/16 08:29; Start 05/03/16 at 09:00 Heparin Sodium (Porcine) (Heparin Inj) 5,000 units Q8H SQ Last administered on 05/06/16 08:29; Start 05/03/16 at 09:00 Naloxone HCl 0.4 mg 0.4 mg UNSCH PRN IV SEE LABEL COMMENTS; Start 05/03/16 at 00:30 Ceftriaxone Sodium/Sodium Chloride (Rocephin Inj/NS Inj) 100 ml @ 200 mls/hr Q12H IV Last administered on 05/04/16 02:30; Start 05/03/16 at 00:30; Stop at 08:44; Status DC Ondansetron HCl (Zofran Inj) 4 mg Q6HR PRN IV PUSH NAUSEA OR VOMITING Last administered on 05/06/16 08:35; Start 05/03/16 at 03:45 Azathioprine (Imuran) 50 mg BID PO Last administered on 05/06/16 08:30; Start 05/03/16 at 09:00 Bethanechol Chloride (Urecholine) 25 mg QID PO Last administered on 05/06/16 12:12; Start 05/03/16 at 09:00 Morphine Sulfate (Msir) 15 mg Q4H PRN PO PAIN; Start 05/03/16 at 03:45; Stop at 09:08; Status DC Pregabalin (Lyrica) 75 mg TID PO Last administered on 05/06/16 12:12; Start at 09:00; Stop 05/06/16 at 12:27; Status DC Dextrose (D50w (Vial) Inj) 25 ml UNSCH PRN IV PUSH HYPOGLYCEMIA-SEE COMMENTS; Start 05/03/16 at 03:45 Glucagon (Glucagon Inj) 1 mg UNSCH PRN OTHER HYPOGLYCEMIA-SEE COMMENTS; Start 05/03/16 at 03:45 Insulin Aspart (NovoLOG SUPPLEMENTAL SCALE) 1 ACHS SLIDING SCALE SQ Last administered on 05/04/16 22:09; Start 05/03/16 at 07:00 Prochlorperazine Edisylate (Compazine Inj) 10 mg Q8H PRN IVS intractable nausea /vomiting; Start 05/03/16 at 09:15 Morphine Sulfate (Msir) 15 mg Q8H PRN PO PAIN SCALE 1 TO 10 Last administered on 05/06/16 02:23; Start 05/03/16 at 15:45 Acetaminophen (Tylenol) 650 mg Q6H PRN PO PAIN 1 TO 2/headache/fever Last administered on 05/06/16 10:34; Start 05/03/16 at 09:15 Trimethoprim/ Sulfamethoxazole (Bactrim Ds 800-160 Mg) 1 tab Q12HR PO Last administered on 05/04/16 22:09; Start 05/04/16 at 09:00; Stop 05/05/16 at 07:22 ; Status DC Acetaminophen (Tylenol) 650 mg ONCE ONCE PO Last administered on 05/04/16 08: 54; Start 05/04/16 at 08:45; Stop 05/04/16 at 08:48; Status DC Lorazepam (Ativan Inj) 1 mg ONCE PRN IV PUSH ANXIETY Last administered on 14:34; Start 05/04/16 at 13:30; Stop 05/06/16 at 13:29; Status DC Gadodiamide 20 ml 20 ml STK-MED ONCE IV Last administered on 05/04/16 15:38; Start 05/04/16 at 15:38; Stop 05/04/16 at 15:39; Status DC Piperacillin Sod/ Tazobactam Sod (Zosyn 3.375 Gm Premix) 50 ml @ 100 mls/hr Q6H IV Last administered on 05/06/16 15:09; Start 05/05/16 at 09:00 Pregabalin (Lyrica) 100 mg TID PO ; Start 05/06/16 at 13:00; Status Cancel Pregabalin (Lyrica) 100 mg TID PO ; Start 05/06/16 at 18:00 Menthol/Methyl Salicylate (Watson Mccollum Oint) 1 applic UNSCH PRN TOP PAIN SCALE 1 TO 3; Start 05/06/16 at 15:30 Family History Family history positive for prostate cancer, breast cancer, stomach cancer Social History No EtOH use or tobacco use Physical Exam Vital Signs Vital Signs Date Time Temp Pulse Resp B/P Pulse Ox O2 Delivery O2 Flow Rate FiO2 05/06/16 16:00 97.9 58 16 113/68 99 05/06/16 12:00 98.4 66 16 122/73 99 05/06/16 10:22 Nasal Cannula 1.00 05/06/16 08:00 97.8 70 16 110/65 99 05/06/16 03:50 Nasal Cannula 1.00 05/06/16 03:50 97.3 61 18 121/64 98 05/05/16 22:50 Nasal Cannula 1.00 05/05/16 22:50 97.7 69 18 123/70 98 Laboratory Date/Time Procedure Status Source Growth 05/02/16 22:35 Urine Culture - Final Complete Urine Catheterized Urine Citrobacter Amalonaticus 05/02/16 20:13 Aerobic Blood Culture - Preliminary Resulted Blood Peripheral NO GROWTH IN 4 DAYS 05/02/16 20:13 Anaerobic Blood Culture - Preliminary Resulted Blood Peripheral NO GROWTH IN 4 DAYS Result Diagram: 05/04/16 0330 05/04/16 0330 Imaging Last Impressions Renal Ultrasound 05/06/16 0000 Signed Impressions: Service Date/Time: Friday, May 06, 2016 11:49 - CONCLUSION: Normal renal sonogram. Isaiah Camp MD Cervical Spine MRI 05/04/16 0000 Signed Impressions: Service Date/Time: Wednesday, May 04, 2016 15:05 - CONCLUSION: 1. Atrophic cervical cord with increased T2 signal. Differential diagnosis includes chronic changes of multiple sclerosis or myelomalacia secondary to other etiologies. There is no prior study for comparison. 2. Focal moderate-sized central disc protrusion at C5-6 resulting in moderate cord compression. Tom Torres MD Brain MRI 05/04/16 0000 Signed Impressions: Service Date/Time: Wednesday, May 04, 2016 15:05 - CONCLUSION: No significant white matter disease to suggest multiple sclerosis within the brain. Several tiny focal signal abnormalities seen, commonly seen at this age. No recent infarct, mass, hemorrhage or shift. Tom Torres MD Chest X-Ray 05/02/161956 Signed Impressions: Service Date/Time: Monday, May 02, 2016 20:11 - CONCLUSION: Linear increased density identified at the bases bilaterally likely representing some scarring or atelectasis. These findings were present previously and appear unchanged. Vin Blue MD Attending Statement I have reviewed her clinical and radiological findings. neuro checks in a serial fashion. Neuro checks in serial fashion. The alternatives of treatment of treatment were discussed She is a high surgical risk PT and OT Nutrition. Oral diet Renal.monitor closely urine output, BUN and creatinine Endocrine. Monitor serial Acu checks and SSI for tight control ID monitor for signs of infection Protonix for stress ulcer prophylaxis [place] hose and SCD's for DVT prophylaxis The exam, history, and the medical decision-making described in the above note were completed with the assistance of the mid-level provider. I reviewed and agree with the findings presented. I attest that I had a [id number] encounter with the patient on the same day, and personally performed and documented my assessment and findings in the medical record. Rosendo Lockett MD May 06, 2016 17:35
[2016-05-06 20:00] VITALS: BP_SYST 71; PULSE 62; RESP 18; TEMP 98.1; O2SAT 99
[2016-05-06 23:50] VITALS: BP 127/67; PULSE 64; RESP 18; TEMP 96.4; O2SAT 99
[2016-05-07] VITALS (7 sets, daily range): BP systolic 108–144; BP diastolic 65–80; PULSE 63–78; RESP 16–20; TEMP 98.2–98.7; O2SAT 95–100
[2016-05-07] MEDS: MORPHINE SULFATE 15 MG TAB PO PRN ×2 (00:38→11:49)
[2016-05-07] MEDS: HEPARIN SODIUM - SQ 10,000 UNITS/ML VIAL SQ SCH ×3 (01:33→17:27)
[2016-05-07] MEDS: PIPERACIL-TAZO 3.375 GM PREMIX 50 ML IV SCH ×4 (03:03→20:43)
[2016-05-07] MEDS: INSULIN ASPART SUPPLEMENTAL SCALE SQ SCH ×4 (06:20→21:00)
[2016-05-07] MEDS: PREGABALIN 100 MG CAP PO SCH ×3 (08:12→17:27)
[2016-05-07] MEDS: BETHANECHOL CHL 25 MG TAB PO SCH ×4 (08:12→20:42)
[2016-05-07] MEDS: SODIUM CHLORIDE 0.9% FLUSH 5 ML FLUSH FLUSH SCH ×2 (08:13→21:00)
[2016-05-07] MEDS: azaTHIOprine 50 MG TAB PO SCH ×2 (08:13→20:42)
[2016-05-07] MEDS: SODIUM CHLOR 0.9% 1000 ML INJ 1,000 ML IV SCH ×2 (11:56→20:44)
--- NOTE | 2016-05-07 12:29 | HHI.IDPN ---
Subjective Subjective Remarks Notes reviewed Temps ok Bladder scan not done yet Renal US normal BC negative Antibiotics Zosyn Lines PIV Past Medical History Multiple sclerosis diagnosed in 2005, patient has been bedridden for the past 5 years Hypertension Diabetes mellitus Sleep apnea COPD History of acute kidney injury but patient denies chronic kidney disease Colostomy placed status post bowel obstruction Past Surgical History Colostomy placement Cholecystectomy Lysis of adhesions Hemorrhoidectomy Allergies: Coded Allergies: No Known Allergies (Verified , 05/02/16) Objective . Vital Signs Date Time Temp Pulse Resp B/P Pulse Ox O2 Delivery O2 Flow Rate FiO2 05/07/16 10:28 Nasal Cannula 1.00 05/07/16 09:00 98.5 67 16 134/71 100 05/07/16 04:55 98.2 63 18 144/80 98 05/06/16 23:50 96.4 64 18 127/67 99 05/06/16 20:00 Nasal Cannula 1.00 05/06/16 20:00 98.1 62 18 71/ 99 05/06/16 16:00 97.9 58 16 113/68 99 05/06/16 05/06/16 05/07/16 15:00 23:00 07:00 Intake Total 300 ml 1184 ml 721 ml Output Total 250 ml Balance 300 ml 934 ml 721 ml Intake Oral 300 ml 120 ml 240 ml IV Total 1064 ml 481 ml Output Stool Total 250 ml # Voids 3 4 6 # Bowel Movements 0 Imaging Cervical Spine MRI 05/04/16 0000 Signed Impressions: Service Date/Time: Wednesday, May 04, 2016 15:05 - CONCLUSION: 1. Atrophic cervical cord with increased T2 signal. Differential diagnosis includes chronic changes of multiple sclerosis or myelomalacia secondary to other etiologies. There is no prior study for comparison. 2. Focal moderate-sized central disc protrusion at C5-6 resulting in moderate cord compression. Tom Torres MD Brain MRI 05/04/16 0000 Signed Impressions: Service Date/Time: Wednesday, May 04, 2016 15:05 - CONCLUSION: No significant white matter disease to suggest multiple sclerosis within the brain. Several tiny focal signal abnormalities seen, commonly seen at this age. No recent infarct, mass, hemorrhage or shift. Tom Torres MD Chest X-Ray 05/02/161956 Signed Impressions: Service Date/Time: [place], May 02, 2016 20:11 - CONCLUSION: Linear increased density identified at the bases bilaterally likely representing some scarring or atelectasis. These findings were present previously and appear unchanged. Vin Blue MD Physical Exam GENERAL: awake and alert, NAD SKIN: Cool and dry. No generalized rash HEENT: [place] conjunctivae. No scleral icterus. Moist oral mucosa. NECK: Supple, nontender, no meningeal signs. CARDIOVASCULAR: Regular rate and rhythm without murmurs, gallops, or rubs. RESPIRATORY: Clear to auscultation. Breath sounds equal bilaterally. No wheezes , rales, or rhonchi. GASTROINTESTINAL: Abdomen soft, non-tender, nondistended. No guarding. Colostomy is functioning MUSCULOSKELETAL: Extremities without clubbing, cyanosis. Has pedal edema. No calf tenderness. NEUROLOGICAL: Awake and alert. Cranial nerves II through XII intact. Normal speech. PSYCH: Normal affect, calm and cooperative LINE: PIV with no evidence of infection Assessment & Plan Remarks IMPRESSION UTI, C/S with Citrobacter - ?incomplete emptying - has recurrent UTI Known MS RECOMMENDATION Continue Zosyn Will reorder bladder scan Repeat UA and C/S Follow C/S Monitor progress Will determine course of Abx once work-up is completed Marisa Le MD May 07, 2016 12:29
[2016-05-07 16:50] LABS: BLOOD, URINE NEG (NEG); COMMENT (UR) CULTURE INDICATED; CULTURE IF INDICATED CULTURE INDICATED; GLUCOSE,URINE NEG (NEG); HYALINE CAST, URINE 1 /lpf (RARE); KETONE, URINE NEG (NEG); NITRITE,URINE NEG (NEG); PH, URINE 5.5 (5.0-8.5); URINE COLOR YELLOW (YELLW/STRAW)
--- NOTE | 2016-05-07 19:20 | HHI.PR ---
Subjective Remarks Patient seen this afternoon. Says she is feeling all right. Denies any chest pain or shortness of breath. On exam I noticed raciel blood in colostomy bag. Patient believes that this is red Jell-O. She says that this red discoloration in her colostomy bag started yesterday. Objective Vital Signs Date Time Temp Pulse Resp B/P Pulse Ox O2 Delivery O2 Flow Rate FiO2 05/07/16 16:00 98.2 65 20 122/68 98 05/07/16 14:02 98.7 70 20 121/78 99 05/07/16 12:00 98.7 70 20 121/78 99 05/07/16 10:28 Nasal Cannula 1.00 05/07/16 09:00 98.5 67 16 134/71 100 05/07/16 04:55 98.2 63 18 144/80 98 05/06/16 23:50 96.4 64 18 127/67 99 05/06/16 20:00 Nasal Cannula 1.00 05/06/16 20:00 98.1 62 18 71/ 99 I/O 05/06/16 05/06/16 05/06/16 05/07/16 05/07/16 05/07/16 07:00 15:00 23:00 07:00 15:00 23:00 Intake Total 850 ml 300 ml 1184 ml 721 ml 840 ml Output Total 250 ml 300 ml Balance 850 ml 300 ml 934 ml 721 ml 540 ml Intake Oral 0 ml 300 ml 120 ml 240 ml 840 ml IV Total 850 ml 1064 ml 481 ml Output Urine Total 300 ml Stool Total 250 ml # Voids 6 3 4 6 4 # Bowel Movements 0 0 0 Result Diagram: 05/04/16 0330 05/04/16 0330 Imaging Last Impressions Renal Ultrasound 05/06/16 0000 Signed Impressions: Service Date/Time: Friday, May 06, 2016 11:49 - CONCLUSION: Normal renal sonogram. Isaiah Camp MD Cervical Spine MRI 05/04/16 0000 Signed Impressions: Service Date/Time: Wednesday, May 04, 2016 15:05 - CONCLUSION: 1. Atrophic cervical cord with increased T2 signal. Differential diagnosis includes chronic changes of multiple sclerosis or myelomalacia secondary to other etiologies. There is no prior study for comparison. 2. Focal moderate-sized central disc protrusion at C5-6 resulting in moderate cord compression. Tom Torres MD Brain MRI 05/04/16 0000 Signed Impressions: Service Date/Time: Wednesday, May 04, 2016 15:05 - CONCLUSION: No significant white matter disease to suggest multiple sclerosis within the brain. Several tiny focal signal abnormalities seen, commonly seen at this age. No recent infarct, mass, hemorrhage or shift. Tom Torres MD Chest X-Ray 05/02/16 1957 Signed Impressions: Service Date/Time: Monday, May 02, 2016 20:11 - CONCLUSION: Linear increased density identified at the bases bilaterally likely representing some scarring or atelectasis. These findings were present previously and appear unchanged. Vin Blue MD Objective Remarks GENERAL: Patient sitting up in bed. Appears comfortable. Alert and oriented 3. SKIN: Warm and dry. HEAD: Normocephalic. EYES: No scleral icterus. No injection or drainage. NECK: Supple, trachea midline. No JVD or lymphadenopathy. CARDIOVASCULAR: Regular rate and rhythm without murmurs, gallops, or rubs. RESPIRATORY: Breath sounds equal bilaterally. No accessory muscle use. GASTROINTESTINAL: Abdomen soft, non-tender, nondistended. Colostomy bag. Small amount of Bright Red blood in colostomy bag. No stool. No surrounding erythema or signs of infection. MUSCULOSKELETAL: No cyanosis, or edema. BACK: Nontender without obvious deformity. No CVA tenderness. A/P Assessment and Plan 55-year-old AA female patient with PMH of multiple sclerosis diagnosed in 2004, bedridden for the past 5 years, HTN, DM, [place], COPD, history of FELIPE but patient denies CKD, colostomy placed s/p bowel obstruction; presents to the ER 05/02 because she reports she has not urinated in the past 2-3 days, with generalized pain, weakness, and shortness of breath Sepsis with UTI: UA with pos nitrites, large leuks, many WBCs/bacteria. -s/p 2L IVF bolus in the ER, and continue IVF at 100cc/hr -Urine culture resulted with Citrobacter Amalonaticus -S/p IV Rocephin, then po Bactrim, now with urine culture resulted, Changed antibiotics to IV Zosyn -Consult ID, appreciate recommendations -Blood culture with no growth to date -BP improved, sepsis resolved -05/07. Urinalysis improving. Appreciate infectious disease assistance. Continue antibiotics as per infectious disease. //Urinary frequency/incontinence, likely incomplete voiding: with sacrococcyx/ coccyx wounds and UTI -keep area clean and dry -Normal renal sonogram -Bladder scan still pending. Follow-up. //Sacral/coccyx wounds, and L breast wound -consult wound care, appreciate recommendations -patient needs wave bed, repositioning every 2 hrs -Continue wound care //Rhabdomyolysis- CPK 1016, with sepsis in a bedridden patient -Given IVF boluses, now on maintenance IVF -Repeat CPK 435, Resolved. //Acute kidney injury: suspect secondary to dehydration -On IVF -repeat labs with improvement back to normal, Cr 0.70 -resolved, avoid nephrotoxins. //Multiple sclerosis: continue azathioprine -Consult Neurology, Patient known to Dr. Hays -Seen by Dr. Phillips, hold off on IV steroids for now, patient improving with antibiotics -Brain MRI and C-spine MRI as above. Follow-up neurosurgery recommendations. //Cervical Stenosis: seen on C-spine MRI, could be contributing to weakness -neurology consulted neurosurgeon. Follow-up neurosurgery recommendations. //History of hypertension: Patient was hypotensive. -held home lisinopril at this time. //Generalized pain: acute on chronic -continue patient's home medication morphine IR 15 mg tid prn -added tylenol as needed, encouraged patient to use tylenol instead with low BP -bilateral hand pain, patient requested Voltaren cream however discussed with pharmacy, no topical NSAID, only has Beng[place], will continue. //Left upper extremity IV infiltration. Doppler to rule out thrombosis. Warm compresses as necessary. //Lower GI bleed. -05/07. Patient reports bleeding from colostomy starting tonight of 05/06. Hemoglobin every 6 hours. Gastroenterology evaluation. Discontinue heparin. Start SCDs. DVT prophylaxis: As patient has lower GI bleed, hold anticoagulation. SCDs.. Discharge Planning Continues on treatment for UTI Continues with neurosurgery evaluation Lower GI bleed. -Expect discharge home with home health in 3 days. Moi Wilson MD May 07, 2016 19:19
[2016-05-07 20:08] LABS: AUTOMATED NEUTROPHIL # 5.1 TH/MM3 (1.8-7.7); BASOPHIL % 0.3 % (0.0-2.0); EOSINOPHIL # 0.1 TH/MM3 (0-0.4); EOSINOPHIL % 1.3 % (0.0-4.0); HEMATOCRIT 28.3 % (35.0-46.0); HEMO FLAGS DIFF FINAL; LYMPH % 32.4 % (9.0-44.0); LYMPHOCYTE # 2.7 TH/MM3 (1.0-4.8); MEAN CORPUSCULAR HEMOGLOBIN 28.9 PG (27.0-34.0); MONO % 5.1 % (0.0-8.0); NEUT % 60.9 % (16.0-70.0); PLATELET COUNT 251 TH/MM3 (150-450); RED BLOOD COUNT 3.33 MIL/MM3 (4.00-5.30); WHITE BLOOD COUNT 8.3 TH/MM3 (4.0-11.0)
[2016-05-07 20:13] LABS: PROTHROMBIN TIME - PATIENT 10.6 SEC (9.8-11.6)
--- NOTE | 2016-05-07 23:30 | RADRPT ---
EXAM DATE/TIME: 05/07/2016 22:31 [facility] COMPARISON: No previous studies available for comparison. INDICATIONS : Left arm pain. MEDICAL HISTORY : Chronic obstructive pulmonary disease. Multiple sclerosis. Diabetes. Chemotherapy. SURGICAL HISTORY : Appendectomy. Hysterectomy. Cholecystectomy. Hemorrhoidedtomy. ENCOUNTER: Initial ACUITY: 1 day PAIN SCORE: 7/10 LOCATION: Left arm. FINDINGS: There is spontaneous flow documented in the brachial, basilic, cephalic, axillary, and subclavian vei ns. The vessels are compressible and augmentation response is documented. No filling defects are se en. The flow is phasic with respiration. Direction of flow in the jugular vein is caudal. CONCLUSION: No DVT. Vin Blue MD on May 07, 2016 at 23:24 Board Certified Radiologist. This report was verified electronically.
[2016-05-08] MEDS: ONDANSETRON HCL 4 MG/2 ML VIAL IV PUSH PRN (02:57)
[2016-05-08] MEDS: MORPHINE SULFATE 15 MG TAB PO PRN ×2 (02:57→18:31)
[2016-05-08] MEDS: PIPERACIL-TAZO 3.375 GM PREMIX 50 ML IV SCH ×2 (04:05→09:43)
[2016-05-08 04:44] VITALS: BP 147/68; PULSE 61; RESP 18; TEMP 98.5; O2SAT 93
[2016-05-08] MEDS: INSULIN ASPART SUPPLEMENTAL SCALE SQ SCH ×4 (05:52→21:13)
[2016-05-08 08:00] VITALS: BP 121/73; PULSE 69; RESP 20; TEMP 99; O2SAT 98
[2016-05-08 08:31] LABS: AUTOMATED NEUTROPHIL # 4.2 TH/MM3 (1.8-7.7); BASOPHIL % 0.3 % (0.0-2.0); EOSINOPHIL # 0.1 TH/MM3 (0-0.4); EOSINOPHIL % 1.3 % (0.0-4.0); HEMO FLAGS DIFF FINAL; LYMPH % 33.4 % (9.0-44.0); LYMPHOCYTE # 2.4 TH/MM3 (1.0-4.8); MEAN CELL VOLUME 85.6 FL (80.0-100.0); MEAN CORPUSCULAR HEMOGLOBIN 28.3 PG (27.0-34.0); MEAN CORPUSCULAR HGB CONC 33.1 % (32.0-36.0); MONO % 5.6 % (0.0-8.0); NEUT % 59.4 % (16.0-70.0); PLATELET COUNT 272 TH/MM3 (150-450); RED BLOOD COUNT 3.39 MIL/MM3 (4.00-5.30); RED CELL DISTRIBUTION WIDTH 13.1 % (11.6-17.2); WHITE BLOOD COUNT 7.1 TH/MM3 (4.0-11.0)
[2016-05-08 08:52] LABS: BICARBONATE 28.6 MEQ/L (21.0-32.0)
--- NOTE | 2016-05-08 08:52 | HHI.FF ---
Face to Face Verification Diagnosis: (1) Multiple sclerosis (2) Exacerbation of multiple sclerosis Physical Therapy Order: Evaluate and Treat Home Health Nursing Order: Nursing assessment with vital signs I have seen patient Hannah Garner on 05/08/16. My clinical findings support the need for the requested home health care services because: Deconditioned w/ increased weakness I certify that my clinical findings support that this patient is homebound because: Unsafe to leave home unassisted Moi Wilson MD May 08, 2016 08:52
[2016-05-08] MEDS: SODIUM CHLORIDE 0.9% FLUSH 5 ML FLUSH FLUSH SCH ×2 (09:00→21:13)
[2016-05-08] MEDS: PREGABALIN 100 MG CAP PO SCH ×4 (09:43→18:10)
[2016-05-08] MEDS: BETHANECHOL CHL 25 MG TAB PO SCH ×5 (09:43→21:13)
[2016-05-08] MEDS: azaTHIOprine 50 MG TAB PO SCH ×2 (09:43→21:13)
[2016-05-08] MEDS: SODIUM CHLOR 0.9% 1000 ML INJ 1,000 ML IV SCH ×2 (09:45→20:27)
[2016-05-08 12:00] VITALS: BP 141/67; PULSE 68; RESP 20; TEMP 98.1; O2SAT 98
--- NOTE | 2016-05-08 13:09 | HHI.IDPN ---
Subjective Subjective Remarks Notes reviewed Temps ok Bladder scan still not done Renal US normal BC negative Repeat UA better Antibiotics Zosyn Lines PIV Past Medical History Multiple sclerosis diagnosed in 2004, patient has been bedridden for the past 5 years Hypertension Diabetes mellitus Sleep apnea COPD History of acute kidney injury but patient denies chronic kidney disease Colostomy placed status post bowel obstruction Past Surgical History Colostomy placement Cholecystectomy Lysis of adhesions Hemorrhoidectomy Allergies: Coded Allergies: No Known Allergies (Verified , 05/02/16) Objective . Vital Signs Date Time Temp Pulse Resp B/P Pulse Ox O2 Delivery O2 Flow Rate FiO2 05/08/16 04:44 98.5 61 18 147/68 93 05/07/16 23:24 98.3 68 18 128/65 95 05/07/16 20:03 98.5 78 18 108/75 97 05/07/16 20:00 Nasal Cannula 1.00 05/07/16 16:00 98.2 65 20 122/68 98 05/07/16 14:02 98.7 70 20 121/78 99 05/07/16 05/07/16 05/08/16 15:00 23:00 07:00 Intake Total 840 ml 240 ml 2610 ml Output Total 300 ml Balance 540 ml 240 ml 2610 ml Intake Oral 840 ml 240 ml 240 ml IV Total 2370 ml Output Urine Total 300 ml # Voids 4 5 8 # Bowel Movements 0 0 0 . Laboratory Tests Test 05/07/16 05/08/16 19:45 06:51 White Blood Count 8.3 TH/MM3 7.1 TH/MM3 Red Blood Count 3.33 MIL/MM3 3.39 MIL/MM3 Hemoglobin 9.6 GM/DL 9.6 GM/DL Hematocrit 28.3 % 29.0 % Mean Corpuscular Volume 85.0 FL 85.6 FL Mean Corpuscular Hemoglobin 28.9 PG 28.3 PG Mean Corpuscular Hemoglobin 34.0 % 33.1 % Concent Red Cell Distribution Width 13.0 % 13.1 % Platelet Count 251 TH/MM3 272 TH/MM3 Mean Platelet Volume 7.8 FL 8.1 FL Neutrophils (%) (Auto) 60.9 % 59.4 % Lymphocytes (%) (Auto) 32.4 % 33.4 % Monocytes (%) (Auto) 5.1 % 5.6 % Eosinophils (%) (Auto) 1.3 % 1.3 % Basophils (%) (Auto) 0.3 % 0.3 % Neutrophils # (Auto) 5.1 TH/MM3 4.2 TH/MM3 Lymphocytes # (Auto) 2.7 TH/MM3 2.4 TH/MM3 Monocytes # (Auto) 0.4 TH/MM3 0.4 TH/MM3 Eosinophils # (Auto) 0.1 TH/MM3 0.1 TH/MM3 Basophils # (Auto) 0.0 TH/MM3 0.0 TH/MM3 CBC Comment DIFF FINAL DIFF FINAL Differential Comment Laboratory Tests Test 05/08/16 06:51 Sodium Level 141 MEQ/L Potassium Level 4.0 MEQ/L Chloride Level 105 MEQ/L Carbon Dioxide Level 28.6 MEQ/L Anion Gap 7 MEQ/L Blood Urea Nitrogen 7 MG/DL Creatinine 0.67 MG/DL Estimat Glomerular Filtration 110 ML/MIN Rate Random Glucose 107 MG/DL Calcium Level 8.7 MG/DL Microbiology Date/Time Procedure Status Source Growth 05/07/16 15:17 Urine Culture Received Urine Clean Catch Pending Imaging Cervical Spine MRI 05/04/16 0000 Signed Impressions: Service Date/Time: Wednesday, May 04, 2016 15:05 - CONCLUSION: 1. Atrophic cervical cord with increased T2 signal. Differential diagnosis includes chronic changes of multiple sclerosis or myelomalacia secondary to other etiologies. There is no prior study for comparison. 2. Focal moderate-sized central disc protrusion at C5-6 resulting in moderate cord compression. Tom Torres MD Brain MRI 05/04/16 0000 Signed Impressions: Service Date/Time: Wednesday, May 04, 2016 15:05 - CONCLUSION: No significant white matter disease to suggest multiple sclerosis within the brain. Several tiny focal signal abnormalities seen, commonly seen at this age. No recent infarct, mass, hemorrhage or shift. Tom Torres MD Chest X-Ray 05/02/161956 Signed Impressions: Service Date/Time: Monday, May 02, 2016 20:11 - CONCLUSION: Linear increased density identified at the bases bilaterally likely representing some scarring or atelectasis. These findings were present previously and appear unchanged. Vin Blue MD Physical Exam GENERAL: awake and alert, NAD SKIN: Cool and dry. No generalized rash HEENT: [place] conjunctivae. No scleral icterus. Moist oral mucosa. NECK: Supple, nontender, no meningeal signs. CARDIOVASCULAR: Regular rate and rhythm without murmurs, gallops, or rubs. RESPIRATORY: Clear to auscultation. Breath sounds equal bilaterally. No wheezes , rales, or rhonchi. GASTROINTESTINAL: Abdomen soft, non-tender, nondistended. No guarding. Colostomy is functioning MUSCULOSKELETAL: Extremities without clubbing, cyanosis. Has pedal edema. No calf tenderness. NEUROLOGICAL: Awake and alert. Cranial nerves II through XII intact. Normal speech. PSYCH: Normal affect, calm and cooperative LINE: PIV with no evidence of infection Assessment & Plan Remarks IMPRESSION UTI, C/S with Citrobacter - ?incomplete emptying - has recurrent UTI Known MS RECOMMENDATION Change Zosyn to Augmentin and give 10 more days of oral Abx Will reorder bladder scan Monitor progress Clinically stable from ID standpoint Marisa Le MD May 08, 2016 13:09
[2016-05-08 16:00] VITALS: BP 147/86; PULSE 62; RESP 18; TEMP 98.2; O2SAT 98
[2016-05-08] MEDS: AMOXICILLIN/CLAVULANATE K 500 MG TAB PO SCH ×2 (17:35→21:12)
--- NOTE | 2016-05-08 19:08 | HHI.PR ---
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 Plan Her MS appears stable and would not recommend therapy for MS at this time Dr Lockett is evaluating her cervical stenosis Diagnosis/Plan: Subjective Subjective Comments No acute events reported She feels her strength is slowly improving Active Medications Current Medications Medications (Trade) Dose Ordered Sig/Garrison Route Start Time Stop Time Status Last Admin (NS 1000 ml Inj) 1,000 ml @ 100 mls/hr Q10H IV 05/03/16 00:27 05/08/16 09:45 (NS Flush) 2 ml UNSCH PRN FLUSH 05/03/16 00:30 (NS Flush) 2 ml BID FLUSH 05/03/16 09:00 05/07/16 21:00 (Heparin Inj) 5,000 units Q8H SQ 05/03/16 09:00 Hold 05/07/16 17:27 (Narcan Inj) 0.4 mg UNSCH PRN IV 05/03/16 00:30 (Zofran Inj) 4 mg Q6HR PRN IV PUSH 05/03/16 03:45 05/08/16 02:57 (Imuran) 50 mg BID PO 05/03/16 09:00 05/08/16 09:43 (Urecholine) 25 mg QID PO 05/03/16 09:00 05/08/16 18:10 (D50w (Vial) Inj) 25 ml UNSCH PRN IV PUSH 05/03/16 03:45 (Glucagon Inj) 1 mg UNSCH PRN OTHER 05/03/16 03:45 (Compazine Inj) 10 mg Q8H PRN IVS 05/03/16 09:15 (Msir) 15 mg Q8H PRN PO 05/03/16 15:45 05/08/16 18:31 (Tylenol) 650 mg Q6H PRN PO 05/03/16 09:15 05/06/16 18:59 (Lyrica) 100 mg TID PO 05/06/16 18:00 05/08/16 18:10 (Watson Mccollum Oint) 1 applic UNSCH PRN TOP 05/06/16 15:30 (Augmentin) 500 mg Q8HR PO 05/08/16 14:00 05/18/16 13:59 05/08/16 17:35 Allergies Allergies Coded Allergies No Known Allergies (Verified05/02/16) Review of Systems Constitutional: Negative Eye: Negative Respiratory: Negative Cardiovascular: Negative Gastrointestinal: Negative Duane/Lymph: Negative Musculoskeletal: Negative Neurologic: Negative except HPI Psychiatric: Negative All other ROS: ROS reviewed as documented in chart Exam I&O / VS 05/07/16 05/07/16 05/08/16 15:00 23:00 07:00 Intake Total 840 ml 240 ml 2610 ml Output Total 300 ml Balance 540 ml 240 ml 2610 ml Intake Oral 840 ml 240 ml 240 ml IV Total 2370 ml Output Urine Total 300 ml # Voids 4 5 8 # Bowel Movements 0 0 0 Vital Signs Date Time Temp Pulse Resp B/P Pulse Ox O2 Delivery O2 Flow Rate FiO2 05/08/16 17:34 20 05/08/16 16:00 98.2 62 18 147/86 98 05/08/16 12:00 98.1 68 20 141/67 98 05/08/16 08:00 99.0 69 20 121/73 98 05/08/16 04:44 98.5 61 18 147/68 93 05/07/16 23:24 98.3 68 18 128/65 95 05/07/16 20:03 98.5 78 18 108/75 97 05/07/16 20:00 Nasal Cannula 1.00 General: Alert and Oriented Eye: EOMI Respiratory: Lungs CTA Cardiology: Normal rate Neurologic: Alert, Oriented Psychiatric: Cooperative, Appropriate mood & affect, Normal judgement Exam Comments 4/5 BUE and BLE DTR 2+ BLE and BUE Objective Micro and Labs Laboratory Tests Test 05/07/16 05/08/16 19:45 06:51 White Blood Count 8.3 7.1 Red Blood Count 3.33 3.39 Hemoglobin 9.6 9.6 Hematocrit 28.3 29.0 Mean Corpuscular Volume 85.0 85.6 Mean Corpuscular Hemoglobin 28.9 28.3 Mean Corpuscular Hemoglobin 34.0 33.1 Concent Red Cell Distribution Width 13.0 13.1 Platelet Count 251 272 Mean Platelet Volume 7.8 8.1 Neutrophils (%) (Auto) 60.9 59.4 Lymphocytes (%) (Auto) 32.4 33.4 Monocytes (%) (Auto) 5.1 5.6 Eosinophils (%) (Auto) 1.3 1.3 Basophils (%) (Auto) 0.3 0.3 Neutrophils # (Auto) 5.1 4.2 Lymphocytes # (Auto) 2.7 2.4 Monocytes # (Auto) 0.4 0.4 Eosinophils # (Auto) 0.1 0.1 Basophils # (Auto) 0.0 0.0 CBC Comment DIFF FINAL DIFF FINAL Differential Comment Prothrombin Time 10.6 Prothromb Time International 1.0 Ratio Sodium Level 141 Potassium Level 4.0 Chloride Level 105 Carbon Dioxide Level 28.6 Anion Gap 7 Blood Urea Nitrogen 7 Creatinine 0.67 Estimat Glomerular Filtration 110 Rate Random Glucose 107 Calcium Level 8.7 Date/Time Procedure Status Source Growth 05/07/16 15:17 Urine Culture - Preliminary Resulted Urine Clean Catch NO GROWTH IN 24 HOURS. Mike Phillips PhD May 08, 2016 19:08
[2016-05-08 20:00] VITALS: BP 103/58; PULSE 70; RESP 19; TEMP 98; O2SAT 100
[2016-05-08 22:14] LABS: HEMATOCRIT 29.6 % (35.0-46.0); REVIEW FLAG FINAL
--- NOTE | 2016-05-08 23:06 | HHI.PR ---
Subjective Remarks patient seen this afternoon around 2 PM. She reports headache continues. Continues with paresthesias in bilateral legs as well. Still with blood, mixed with stool in colostomy bag. Objective Vital Signs Date Time Temp Pulse Resp B/P Pulse Ox O2 Delivery O2 Flow Rate FiO2 05/08/16 20:00 98.0 70 19 103/58 100 05/08/16 17:34 20 05/08/16 16:00 98.2 62 18 147/86 98 05/08/16 16:00 98 Nasal Cannula 1.00 05/08/16 12:00 98.1 68 20 141/67 98 05/08/16 08:00 99.0 69 20 121/73 98 05/08/16 04:44 98.5 61 18 147/68 93 05/07/16 23:24 98.3 68 18 128/65 95 I/O 05/07/16 05/07/16 05/07/16 05/08/16 05/08/16 05/08/16 07:00 15:00 23:00 07:00 15:00 23:00 Intake Total 721 ml 840 ml 240 ml 2610 ml 720 ml 748 ml Output Total 300 ml Balance 721 ml 540 ml 240 ml 2610 ml 720 ml 748 ml Intake Oral 240 ml 840 ml 240 ml 240 ml 720 ml IV Total 481 ml 2370 ml 748 ml Output Urine Total 300 ml # Voids 6 4 5 8 4 # Bowel Movements 0 0 0 0 0 Result Diagram: 05/08/168 05/08/16 0651 Objective Remarks GENERAL: Patient sitting up in bed. Appears comfortable. Alert and oriented 3. SKIN: Warm and dry. HEAD: Normocephalic. EYES: No scleral icterus. No injection or drainage. NECK: Supple, trachea midline. No JVD or lymphadenopathy. CARDIOVASCULAR: Regular rate and rhythm without murmurs, gallops, or rubs. RESPIRATORY: Breath sounds equal bilaterally. No accessory muscle use. GASTROINTESTINAL: Abdomen soft, non-tender, nondistended. Colostomy bag. red blood mixed with stool in colostomy bag. No surrounding erythema or signs of infection. MUSCULOSKELETAL: No cyanosis, or edema. BACK: Nontender without obvious deformity. No CVA tenderness. A/P Assessment and Plan 55-year-old AA female patient with PMH of multiple sclerosis diagnosed in 2004, bedridden for the past 5 years, HTN, DM, NAPOLEON, COPD, history of FELIPE but patient denies CKD, colostomy placed s/p bowel obstruction; presents to the ER 05/02 because she reports she has not urinated in the past 2-3 days, with generalized pain, weakness, and shortness of breath Sepsis with UTI: UA with pos nitrites, large leuks, many WBCs/bacteria. -s/p 2L IVF bolus in the ER, and continue IVF at 100cc/hr -Urine culture resulted with Citrobacter Amalonaticus -S/p IV Rocephin, then po Bactrim, now with urine culture resulted, Changed antibiotics to IV Zosyn -Consult ID, appreciate recommendations -Blood culture with no growth to date -BP improved, sepsis resolved -05/08 Appreciate infectious disease assistance. Switched to Augmentin. Continue antibiotics as per infectious disease. //Urinary frequency/incontinence, likely incomplete voiding: with sacrococcyx/ coccyx wounds and UTI -keep area clean and dry -Normal renal sonogram -Bladder scan unremarkable. Continue to monitor //Sacral/coccyx wounds, and L breast wound -consult wound care, appreciate recommendations -patient needs wave bed, repositioning every 2 hrs -Continue wound care //Rhabdomyolysis- CPK 1016, with sepsis in a bedridden patient -Given IVF boluses, now on maintenance IVF -Repeat CPK 435, Resolved. //Acute kidney injury: suspect secondary to dehydration -On IVF -repeat labs with improvement back to normal, Cr 0.70 -resolved, avoid nephrotoxins. //Multiple sclerosis: continue azathioprine -Consult Neurology, Patient known to Dr. Hays -Seen by Dr. Phillips, hold off on IV steroids for now, patient improving with antibiotics -Brain MRI and C-spine MRI as above. Follow-up neurosurgery recommendations. //Cervical Stenosis: seen on C-spine MRI, could be contributing to weakness -neurology consulted neurosurgeon. Follow-up neurosurgery recommendations. //History of hypertension: Patient was hypotensive. -held home lisinopril at this time. //Generalized pain: acute on chronic -continue patient's home medication morphine IR 15 mg tid prn -added tylenol as needed, encouraged patient to use tylenol instead with low BP -bilateral hand pain, patient requested Voltaren cream however discussed with pharmacy, no topical NSAID, only has Bengparker, will continue. //Left upper extremity IV infiltration. Doppler to rule out thrombosis. Warm compresses as necessary. //Lower GI bleed. -05/07. Patient reports bleeding from colostomy starting tonight of 05/06. Hemoglobin every 6 hours. Gastroenterology evaluation. Discontinue heparin. Start SCDs. -05/08.anemia. Hemoglobin stable.follow-up gastroenterology consult. Continue to monitor DVT prophylaxis: As patient has lower GI bleed, hold anticoagulation. SCDs.. Discharge Planning Continues on treatment for UTI, now on Augmentin Continues with neurosurgery evaluation Lower GI bleed.GI evaluation -Expect discharge home with home health in 3 days. Moi Wilson MD May 08, 2016 23:06
[2016-05-09] VITALS: BP 108/66; PULSE 59; RESP 18; TEMP 97.5; O2SAT 95
[2016-05-09] MEDS: MORPHINE SULFATE 15 MG TAB PO PRN (03:38)
[2016-05-09 04:46] VITALS: BP 134/66; PULSE 59; RESP 18; TEMP 97.4; O2SAT 99
[2016-05-09] MEDS: AMOXICILLIN/CLAVULANATE K 500 MG TAB PO SCH ×3 (05:17→21:06)
[2016-05-09] MEDS: INSULIN ASPART SUPPLEMENTAL SCALE SQ SCH ×4 (05:19→21:00)
[2016-05-09] MEDS: SODIUM CHLOR 0.9% 1000 ML INJ 1,000 ML IV SCH ×2 (06:27→17:32)
[2016-05-09 08:00] VITALS: BP 120/69; PULSE 63; RESP 18; TEMP 98.4; O2SAT 98
[2016-05-09] MEDS: SODIUM CHLORIDE 0.9% FLUSH 5 ML FLUSH FLUSH SCH ×2 (08:33→21:00)
[2016-05-09] MEDS: PREGABALIN 100 MG CAP PO SCH ×3 (08:34→17:31)
[2016-05-09] MEDS: azaTHIOprine 50 MG TAB PO SCH ×2 (08:34→21:06)
[2016-05-09] MEDS: BETHANECHOL CHL 25 MG TAB PO SCH ×4 (08:34→21:06)
--- NOTE | 2016-05-09 09:43 | MB ---
cc: SMITHA WINCHESTER M.D., RIZALINA M.D. RICCI, DONATO DATE OF CONSULTATION: 05/09/2016 DATE OF : 1960 HISTORY OF PRESENT ILLNESS The patient is a 55-year-old -[place] female with multiple sclerosis who has been bedridden for a while and was admitted to the hospital because of nausea and vomiting. She was found to have an urinary tract infection. She has been having dyspnea as well which has only improved a little bit since arriving to the hospital. Over the past 2-3 days she has noticed some blood in her colostomy bag. I was asked to see her for this condition. She tells me she has abdominal pain intermittently for the past year or more and Dr. Woods has been evaluating this. He found gastroparesis but the medication he started for her has not helped with the gastroparesis or the nausea and vomiting she has been experiencing. Oral intake does not increase or decrease the abdominal pain. On questioning she says the pain feels somewhat like her previous adhesion pain that required surgery. The pain is in the epigastrium and at the infraumbilical region and fluctuates. No dysphagia or odynophagia. PAST MEDICAL/SURGICAL HISTORY 1. Multiple sclerosis diagnosed in 2004. 2. Hypertension. 3. Diabetes mellitus. 4. Sleep apnea. 5. COPD. 6. Acute kidney injury with no evidence of chronic injury to the kidneys. 7. Colostomy placed 5 years ago because of severe constipation due to her multiple sclerosis. 8. Cholecystectomy. 9. Lysis of adhesions. 10.Hemorrhoidectomy. MEDICATIONS Medications on admission: 1. Tylenol. 2. Imuran. 3. Urecholine. 4. Heparin. 5. Insulin. 6. Ativan. 7. Morphine. 8. Zofran. 9. Zosyn. 10.Lyrica. 11.Compazine. SOCIAL HISTORY Tobacco use none. Alcohol use none. ALLERGIES None known to medications. REVIEW OF SYSTEMS No history of vision difficulties. No history of seizures or strokes. No headaches. No coughing. No unexplained weight loss. No history of liver or pancreatic disease. No history of thyroid disease. No new rashes of any sort. PHYSICAL EXAMINATION VITAL SIGNS: Weight is 94.2 kg. Temperature 98.4, pulse 63, respiratory rate 18, blood pressure 120/69. Saturation 98% on room air. GENERAL: She is alert. She is oriented x3. HEENT: She is anicteric. Strabismus is noted. LYMPH NODES: I appreciate no submandibular, cervical, supraclavicular, axillary or epitrochlear adenopathy. LUNGS: Clear to auscultation. HEART: Regular rate and rhythm with no gross murmur or gallop. ABDOMEN: A stoma is present in the right lateral abdomen with thick liquid brown fecal matter with no blood evident. Good bowel sounds. No audible bruit. The abdomen is soft with mild to moderate tenderness in the epigastrium and no tenderness elsewhere. No masses or hepatosplenomegaly are appreciated. EXTREMITIES: No pedal edema, Dupuytren's contractures or palmar erythema. LABORATORY STUDIES Yesterday sodium 141, potassium 4.0, BUN 7, creatinine 0.67, glucose 107. INR on 05/07/2016 was 1.0. Yesterday's white count 7.1, hemoglobin 9.6, MCV 85.6, platelets 272. IMAGING Renal ultrasound: Unremarkable. Left upper extremity ultrasound: No DVT. IMPRESSION 1. Abdominal pain for a year or more with nausea and vomiting in this patient who tells me she has documented gastroparesis but Urecholine is not helping her symptoms. She does not recall if and when a panendoscopy had been performed. Will try to obtain those records before considering repeating an endoscopy. Some of the pain she tells me radiates to the back. She had mentioned that Dr. Woods discussed with her the possibility of scheduling a CT scan. Will order that while she is here to check for any abdominal or pelvic processes that would not be detectable endoscopically. 2. Bleeding through the stoma. Will consider trans colostomy colonoscopy and possible flexible sigmoidoscopy through the anus depending on when her last colonoscopic evaluation had been performed. I will obtain those records when I get to the office later today. The patient understands to proceed with the plan as outlined. I would like her respiratory status to improve before considering sedation for any endoscopic procedure. I discussed endoscopy and colonoscopy with her including potential risks of medication reaction, bleeding, perforation and a small chance of missing a lesion. MD NERI Scott/IRA /9:02 AM /9:30 AM
[2016-05-09 12:00] VITALS: BP 112/63; PULSE 71; RESP 18; TEMP 98; O2SAT 96
[2016-05-09] MEDS ORDERED: DIATRIZOATE MEGLUM/DIATRIZOATE SOD 9 ML CUP PO ONE (12:00)
[2016-05-09 12:26] LABS: HEMATOCRIT 31.2 % (35.0-46.0); REVIEW FLAG FINAL
--- NOTE | 2016-05-09 15:51 | RADRPT ---
EXAM DATE/TIME: 05/09/2016 15:33 [facility] COMPARISON: CT ABDOMEN & PELVIS W/O CONTRAST, November 04, 2014, 7:53. INDICATIONS : Abdomen pain with bleeding around colostomy. ORAL CONTRAST: Prescribed oral contrast ingested. RADIATION DOSE: 10.69 CTDIvol (mGy) MEDICAL HISTORY : Chronic obstructive pulmonary disease. Diabetes mellitus type 2. SURGICAL HISTORY : Appendectomy. Cholecystectomy.Hysterectomy.Colostomy ENCOUNTER: Initial ACUITY: 1 day PAIN SCALE: 6/10 LOCATION: Bilateral abdomen TECHNIQUE: Volumetric scanning of the abdomen and pelvis was performed. Using automated exposure control and ad justment of the mA and/or kV according to patient size, radiation dose was kept as low as reasonably achievable to obtain optimal diagnostic quality images. The lack of IV contrast limits the diagnosis for certain organ pathology. FINDINGS: LOWER LUNGS: Stable scarring in both bases. No acute infiltrates. LIVER: Homogeneous density without lesion. There is no dilation of the biliary tree. No gallbladder, surgi tanya removed.. SPLEEN: Normal size without lesion. PANCREAS: Within normal limits. KIDNEYS: Normal in size and shape. There is no mass, stone, or hydronephrosis. ADRENAL GLANDS: Within normal limits. VASCULAR: There is no aortic aneurysm. BOWEL/MESENTERY: The stomach, small bowel, and colon demonstrate no acute abnormality. There is no free intraperitone al air or fluid. There is stool in the colon. No evidence of obstruction. No free air is seen. No inf lammatory changes are seen. There is an ileostomy on the anterior abdominal wall. The ileostomy is pa tent. There is contrast seen in the collecting bag. The surrounding subcutaneous soft tissues at the ileostomy site are unremarkable. ABDOMINAL WALL: There is some edema in the subcutaneous soft tissues along both flanks suggestive of anasarca.. RETROPERITONEUM: There is no lymphadenopathy. BLADDER: No wall thickening or mass. REPRODUCTIVE: Within normal limits. INGUINAL: There is no lymphadenopathy or hernia. MUSCULOSKELETAL: Within normal limits for patient age. CONCLUSION: 1. The ileostomy along the anterior abdominal wall is unremarkable and patent. 2. Nonspecific edema in the subcutaneous soft tissues along both flanks suggestive of anasarca. 3. Stable bibasilar scarring. 4. No new or significant changes compared to the prior exam. Abhijit Oleary MD on May 09, 2016 at 15:44 Board Certified Radiologist. This report was verified electronically.
[2016-05-09 16:00] VITALS: BP 114/63; PULSE 71; RESP 20; TEMP 98.6; O2SAT 99
--- NOTE | 2016-05-09 17:59 | HHI.PR ---
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 Active Medications Current Medications Medications (Trade) Dose Ordered Sig/Garrison Route Start Time Stop Time Status Last Admin (NS 1000 ml Inj) 1,000 ml @ 100 mls/hr Q10H IV 05/03/16 00:27 05/09/16 17:32 (NS Flush) 2 ml UNSCH PRN FLUSH 05/03/16 00:30 (NS Flush) 2 ml BID FLUSH 05/03/16 09:00 05/08/16 21:13 (Heparin Inj) 5,000 units Q8H SQ 05/03/16 09:00 Hold 05/07/16 17:27 (Narcan Inj) 0.4 mg UNSCH PRN IV 05/03/16 00:30 (Zofran Inj) 4 mg Q6HR PRN IV PUSH 05/03/16 03:45 05/08/16 02:57 (Imuran) 50 mg BID PO 05/03/16 09:00 05/09/16 08:34 (Urecholine) 25 mg QID PO 05/03/16 09:00 05/09/16 17:32 (D50w (Vial) Inj) 25 ml UNSCH PRN IV PUSH 05/03/16 03:45 (Glucagon Inj) 1 mg UNSCH PRN OTHER 05/03/16 03:45 (Compazine Inj) 10 mg Q8H PRN IVS 05/03/16 09:15 (Msir) 15 mg Q8H PRN PO 05/03/16 15:45 05/09/16 03:38 (Tylenol) 650 mg Q6H PRN PO 05/03/16 09:15 05/06/16 18:59 (Lyrica) 100 mg TID PO 05/06/16 18:00 05/09/16 17:31 (Watson Mccollum Oint) 1 applic UNSCH PRN TOP 05/06/16 15:30 (Augmentin) 500 mg Q8HR PO 05/08/16 14:00 05/18/16 13:59 05/09/16 13:46 Allergies Allergies Coded Allergies No Known Allergies (Verified05/02/16) Review of Systems Constitutional: Negative Eye: Negative Respiratory: Negative Cardiovascular: Negative Gastrointestinal: Negative Duane/Lymph: Negative Musculoskeletal: Negative Neurologic: Negative except HPI Psychiatric: Negative All other ROS: ROS reviewed as documented in chart Exam I&O / VS 05/08/16 05/08/16 05/09/16 15:00 23:00 07:00 Intake Total 720 ml 748 ml 650 ml Balance 720 ml 748 ml 650 ml Intake Oral 720 ml 650 ml IV Total 748 ml # Voids 4 5 # Bowel Movements 0 0 Vital Signs Date Time Temp Pulse Resp B/P Pulse Ox O2 Delivery O2 Flow Rate FiO2 05/09/16 16:33 97 Nasal Cannula 1.00 05/09/16 16:00 98.6 71 20 114/63 99 05/09/16 12:00 98.0 71 18 112/63 96 05/09/16 10:00 20 05/09/16 08:00 98.4 63 18 120/69 98 05/09/16 04:46 97.4 59 18 134/66 99 05/09/16 00:00 97.5 59 18 108/66 95 05/08/16 20:55 Nasal Cannula 1.00 05/08/16 20:00 98.0 70 19 103/58 100 General: Alert and Oriented Eye: EOMI Respiratory: Lungs CTA Cardiology: Normal rate Neurologic: Alert, Oriented Psychiatric: Cooperative, Appropriate mood & affect, Normal judgement Exam Comments 4+/5 BUE and 4/5 BLE DTR 2+ BLE and BUE Objective Micro and Labs Laboratory Tests Test 05/08/16 05/09/16 21:38 12:06 Hemoglobin 9.9 10.4 Hematocrit 29.6 31.2 Date/Time Procedure Status Source Growth 05/07/16 15:17 Urine Culture - Final Complete Urine Clean Catch NO GROWTH IN 48 HOURS. Mike Phillips PhD MD May 09, 2016 17:59
[2016-05-09 18:56] LABS: HEMATOCRIT 28.4 % (35.0-46.0); REVIEW FLAG FINAL
[2016-05-09 20:00] VITALS: BP 111/65; PULSE 69; RESP 20; TEMP 98.6; O2SAT 98
--- NOTE | 2016-05-09 20:45 | HHI.PR ---
Subjective Remarks Patient seen today around noon. She reports that headache is unchanged. Denies any changes in bilateral lower extremity paresthesias. Denies any abdominal pain. Still with blood in colostomy bag. Denies any nausea or vomiting. Objective Vital Signs Date Time Temp Pulse Resp B/P Pulse Ox O2 Delivery O2 Flow Rate FiO2 05/09/16 16:33 97 Nasal Cannula 1.00 05/09/16 16:00 98.6 71 20 114/63 99 05/09/16 12:00 98.0 71 18 112/63 96 05/09/16 10:00 20 05/09/16 08:00 98.4 63 18 120/69 98 05/09/16 04:46 97.4 59 18 134/66 99 05/09/16 00:00 97.5 59 18 108/66 95 05/08/16 20:55 Nasal Cannula 1.00 I/O 05/08/16 05/08/16 05/08/16 05/09/16 05/09/16 05/09/16 07:00 15:00 23:00 07:00 15:00 23:00 Intake Total 2610 ml 720 ml 748 ml 650 ml 720 ml 114 ml Balance 2610 ml 720 ml 748 ml 650 ml 720 ml 114 ml Intake Oral 240 ml 720 ml 650 ml 720 ml IV Total 2370 ml 748 ml 114 ml # Voids 8 4 5 3 # Bowel Movements 0 0 0 2 Result Diagram: 05/09/16 1844 05/08/16 0651 Objective Remarks GENERAL: Patient sitting up in bed. Appears comfortable. Alert and oriented 3. SKIN: Warm and dry. HEAD: Normocephalic. EYES: No scleral icterus. No injection or drainage. NECK: Supple, trachea midline. No JVD or lymphadenopathy. CARDIOVASCULAR: Regular rate and rhythm without murmurs, gallops, or rubs. RESPIRATORY: Breath sounds equal bilaterally. No accessory muscle use. GASTROINTESTINAL: Abdomen soft, non-tender, nondistended. Colostomy bag. Still a small amount of red blood in colostomy bag. No surrounding erythema or signs of infection. MUSCULOSKELETAL: No cyanosis, or edema. BACK: Nontender without obvious deformity. No CVA tenderness. A/P Assessment and Plan 55-year-old AA female patient with PMH of multiple sclerosis diagnosed in 2004, bedridden for the past 5 years, HTN, DM, NAPOLEON, COPD, history of FELIPE but patient denies CKD, colostomy placed s/p bowel obstruction; presents to the ER 05/02 because she reports she has not urinated in the past 2-3 days, with generalized pain, weakness, and shortness of breath Sepsis with UTI: UA with pos nitrites, large leuks, many WBCs/bacteria. -s/p 2L IVF bolus in the ER, and continue IVF at 100cc/hr -Urine culture resulted with Citrobacter Amalonaticus -S/p IV Rocephin, then po Bactrim, now with urine culture resulted, Changed antibiotics to IV Zosyn -Consult ID, appreciate recommendations -Blood culture with no growth to date -BP improved, sepsis resolved -05/08 Appreciate infectious disease assistance. Switched to Augmentin. Continue antibiotics as per infectious disease. -05/09. Continue Augmentin as per infectious disease. //Urinary frequency/incontinence, likely incomplete voiding: with sacrococcyx/ coccyx wounds and UTI -keep area clean and dry -Normal renal sonogram -Bladder scan unremarkable. Continue to monitor //Sacral/coccyx wounds, and L breast wound -consult wound care, appreciate recommendations -patient needs wave bed, repositioning every 2 hrs -Continue wound care //Rhabdomyolysis- CPK 1016, with sepsis in a bedridden patient -Given IVF boluses, now on maintenance IVF -Repeat CPK 435, Resolved. //Acute kidney injury: suspect secondary to dehydration -On IVF -repeat labs with improvement back to normal, Cr 0.70 -resolved, avoid nephrotoxins. //Multiple sclerosis: continue azathioprine -Consult Neurology, Patient known to Dr. Hays -Seen by Dr. Phillips, hold off on IV steroids for now, patient improving with antibiotics -Brain MRI and C-spine MRI as above. Follow-up neurosurgery recommendations. //Cervical Stenosis: seen on C-spine MRI, could be contributing to weakness -neurology consulted neurosurgeon. -Neurologic exam stable. I'll be following. -Follow-up neurosurgery recommendations. //History of hypertension: Patient was hypotensive. -held home lisinopril at this time. //Generalized pain: acute on chronic -continue patient's home medication morphine IR 15 mg tid prn -added tylenol as needed, encouraged patient to use tylenol instead with low BP -bilateral hand pain, patient requested Voltaren cream however discussed with pharmacy, no topical NSAID, only has Bengay, will continue. //Left upper extremity IV infiltration. Doppler ruled out thrombosis. Resolved. //Lower GI bleed. -05/07. Patient reports bleeding from colostomy starting tonight of 05/06. Hemoglobin every 6 hours. Gastroenterology evaluation. Discontinue heparin. Start SCDs. -05/08.anemia. Hemoglobin stable.follow-up gastroenterology consult. Continue to monitor -05/09. Hemoglobin stable. Appreciate gastroenterology assistance. CT with no acute findings. Possible colonoscopy. Continue to follow hemoglobin. DVT prophylaxis: As patient has lower GI bleed, hold anticoagulation. SCDs.. Discharge Planning Continues on treatment for UTI, now on Augmentin Continues with neurosurgery evaluation Lower GI bleed.GI evaluation -Expect discharge home with home health in 3 days. Moi Wilson MD May 09, 2016 20:45
[2016-05-09 22:29] LABS: HEMATOCRIT 28.2 % (35.0-46.0); REVIEW FLAG FINAL
[2016-05-10] VITALS: BP 111/56; PULSE 70; RESP 20; TEMP 98.5; O2SAT 98
[2016-05-10] MEDS: SODIUM CHLOR 0.9% 1000 ML INJ 1,000 ML IV SCH ×3 (02:27→21:57)
[2016-05-10 04:00] VITALS: BP 125/70; PULSE 63; RESP 20; TEMP 98.3; O2SAT 100
[2016-05-10] MEDS: MORPHINE SULFATE 15 MG TAB PO PRN ×2 (04:11→16:15)
[2016-05-10 04:29] LABS: HEMATOCRIT 29.3 % (35.0-46.0); REVIEW FLAG FINAL
[2016-05-10] MEDS: ONDANSETRON HCL 4 MG/2 ML VIAL IV PUSH PRN (05:45)
[2016-05-10] MEDS: AMOXICILLIN/CLAVULANATE K 500 MG TAB PO SCH ×3 (05:46→21:53)
[2016-05-10] MEDS: INSULIN ASPART SUPPLEMENTAL SCALE SQ SCH ×4 (06:26→21:00)
[2016-05-10 08:00] VITALS: BP 132/63; PULSE 69; RESP 18; TEMP 98; O2SAT 98
[2016-05-10] MEDS: BETHANECHOL CHL 25 MG TAB PO SCH ×4 (09:40→21:54)
[2016-05-10] MEDS: azaTHIOprine 50 MG TAB PO SCH ×2 (09:40→21:53)
[2016-05-10] MEDS: PREGABALIN 100 MG CAP PO SCH ×3 (09:40→18:26)
[2016-05-10] MEDS: SODIUM CHLORIDE 0.9% FLUSH 5 ML FLUSH FLUSH SCH ×2 (09:40→21:00)
--- NOTE | 2016-05-10 10:50 | HHI.GIFU ---
GI Follow-up Note Consult Follow-up Subjective: Patient laying in bed comfortably, no new complaints. Still with mild upper abd discomfort. No further bleeding. She says her breathing is still difficult, inhaling and exhaling. Objective: PHYSICAL EXAMINATION: Vitals signs stable No fever HEENT:EOMI Chest: Lungs clear to auscultation. ABDOMEN: Soft, nondistended, mild RUQ tenderness (she is post-cholecystectomy.) MODEL MAKER PLASTIC: alert and oriented times three. Available Data (labs, X- Rays, Procedues) : Hgb is stable. ASSESSMENT/PLAN:Abdominal pain with tenderness. The CT revealed no abnormalities to explain this pain and her last EGD, Nov, 2015, had revealed only food matter in the stomach with no inflammation/ulcers. I suspect adhesions are the etiology. With respect to the stomal bleed, which seems to have stopped, her last colonoscopy was performed in 1997. When her respiratory status is more comfortable, we can schedule a trans-colostomy colonoscopy and a flexible sigmoidoscopy. She'd like Dr. Corona to see her. It was a pleasure seeing Hannah Garner. Entered by: Rodriguez Ferguson MD May 10, 2016 10:49
[2016-05-10 12:00] VITALS: BP 121/60; PULSE 67; RESP 18; TEMP 98.7; O2SAT 99
[2016-05-10 15:11] LABS: HEMATOCRIT 30.7 % (35.0-46.0); REVIEW FLAG FINAL
[2016-05-10 16:00] VITALS: BP 108/61; PULSE 85; RESP 18; TEMP 98.7; O2SAT 97
[2016-05-10] MEDS: COLLAGENASE OINT 30 GM TUBE TOP SCH (16:45)
--- NOTE | 2016-05-10 17:00 | HHI.PR ---
Subjective Remarks pt says feels same as yesterday. no cp. raquel does say she needs to be on inhalers TID and symbicort BID, shich she is not on here. she feels she might have a little more difficulty breathing over the past week not being on these meds. Objective Vital Signs Date Time Temp Pulse Resp B/P Pulse Ox O2 Delivery O2 Flow Rate FiO2 05/10/16 16:00 98.7 85 18 108/61 97 05/10/16 08:00 98.0 69 18 132/63 98 05/10/16 04:00 98.3 63 20 125/70 100 05/10/16 00:00 98.5 70 20 111/56 98 05/09/16 21:15 Nasal Cannula 1.00 05/09/16 20:00 98.6 69 20 111/65 98 I/O 05/09/16 05/09/16 05/09/16 05/10/16 05/10/16 05/10/16 07:00 15:00 23:00 07:00 15:00 23:00 Intake Total 650 ml 720 ml 354 ml 360 ml Output Total 200 ml Balance 650 ml 720 ml 354 ml 160 ml Intake Oral 650 ml 720 ml 240 ml 360 ml IV Total 114 ml Stool Total 200 ml # Voids 5 3 1 3 # Bowel Movements 0 2 Result Diagram: 05/10/16 1446 05/08/16 0651 Objective Remarks GENERAL: Patient sitting up in bed. Appears comfortable. Alert and oriented 3. SKIN: Warm and dry. sacral ulcer with small overlying slough no pus. HEAD: Normocephalic. EYES: No scleral icterus. No injection or drainage. NECK: Supple, trachea midline. No JVD. CARDIOVASCULAR: Regular rate and rhythm without murmurs, gallops, or rubs. RESPIRATORY: Breath sounds equal bilaterally. No accessory muscle use. GASTROINTESTINAL: Abdomen soft, non-tender, nondistended. Colostomy bag. Still a small amount of red blood in colostomy bag. No surrounding erythema or signs of infection. MUSCULOSKELETAL: No cyanosis, or edema. BACK: Nontender without obvious deformity. No CVA tenderness. A/P Assessment and Plan 55-year-old AA female patient with PMH of multiple sclerosis diagnosed in 2004, bedridden for the past 5 years, HTN, DM, NAPOLEON, COPD, history of FELIPE but patient denies CKD, colostomy placed s/p bowel obstruction; presents to the ER 05/02 because she reports she has not urinated in the past 2-3 days, with generalized pain, weakness, and shortness of breath Sepsis with UTI: UA with pos nitrites, large leuks, many WBCs/bacteria. -s/p 2L IVF bolus in the ER, and continue IVF at 100cc/hr -Urine culture resulted with Citrobacter Amalonaticus -S/p IV Rocephin, then po Bactrim, now with urine culture resulted, Changed antibiotics to IV Zosyn -Consult ID, appreciate recommendations -Blood culture with no growth to date -BP improved, sepsis resolved -05/08 Appreciate infectious disease assistance. Switched to Augmentin. Continue antibiotics as per infectious disease. -05/10 Continue Augmentin as per infectious disease. //COPD. -respiratory status appears stable, although patient reports some sob over past week being of inhaled albuterol and BID symbicort. will restart. assess response. //Urinary frequency/incontinence, likely incomplete voiding: with sacrococcyx/ coccyx wounds and UTI -keep area clean and dry -Normal renal sonogram -Bladder scan unremarkable. Continue to monitor //Sacral/coccyx wounds, and L breast wound -consult wound care, appreciate recommendations -patient needs wave bed, repositioning every 2 hrs -Continue wound care -05/10 dw nursing. small amount of slough on wound. order laure, wound care consult. //Rhabdomyolysis- CPK 1016, with sepsis in a bedridden patient -Given IVF boluses, now on maintenance IVF -Repeat CPK 435, Resolved. //Acute kidney injury: suspect secondary to dehydration -On IVF -repeat labs with improvement back to normal. -resolved, avoid nephrotoxins. //Multiple sclerosis: continue azathioprine -Consult Neurology, Patient known to Dr. Hays -Seen by Dr. Phillips, hold off on IV steroids for now, patient improving with antibiotics -Brain MRI and C-spine MRI as above. Follow-up neurosurgery recommendations. //Cervical Stenosis: seen on C-spine MRI, could be contributing to weakness -neurology consulted neurosurgeon. -Neurologic exam stable. I'll be following. -Follow-up neurosurgery recommendations. //History of hypertension: Patient was hypotensive. -hold home lisinopril at this time. //Generalized pain: acute on chronic -continue patient's home medication morphine IR 15 mg tid prn -added tylenol as needed, encouraged patient to use tylenol instead with low BP -bilateral hand pain, patient requested Voltaren cream however discussed with pharmacy, no topical NSAID, only has Bengay, will continue. //Lower GI bleed. -05/07. Patient reports bleeding from colostomy starting tonight of 05/06. Hemoglobin every 6 hours. Gastroenterology evaluation. Discontinue heparin. Start SCDs. -05/08.anemia. Hemoglobin stable.follow-up gastroenterology consult. Continue to monitor -05/09. Hemoglobin stable. Appreciate gastroenterology assistance. CT with no acute findings. Possible colonoscopy. Continue to follow hemoglobin. 05/10. hgb stable. appreciate GI assist DVT prophylaxis: As patient has lower GI bleed, hold anticoagulation. SCDs.. Discharge Planning Continues on treatment for UTI, now on Augmentin Continues with neurosurgery evaluation Lower GI bleed.GI evaluation -Expect discharge home with home health in 3 days. Moi Wilson MD May 10, 2016 17:00
[2016-05-10 20:00] VITALS: BP 116/58; PULSE 71; RESP 18; TEMP 97.9; O2SAT 98
[2016-05-10 20:43] LABS: HEMATOCRIT 29.2 % (35.0-46.0); REVIEW FLAG FINAL
[2016-05-10] MEDS: BUDESONIDE-FORMOTEROL 160/4.5 MCG INHALER INH SCH (21:00)
[2016-05-11] VITALS: BP 104/61; PULSE 72; RESP 18; TEMP 98.1; O2SAT 97
[2016-05-11] MEDS: RESP: ALBUTEROL 2.5 MG/IPRATROPIUM 0.5 MG NEB (SCH) NEB ×3 (01:05→15:52)
[2016-05-11] MEDS: MORPHINE SULFATE 15 MG TAB PO PRN ×2 (02:27→14:44)
[2016-05-11 04:00] VITALS: BP 110/62; PULSE 68; RESP 18; TEMP 98.5; O2SAT 97
[2016-05-11] MEDS: AMOXICILLIN/CLAVULANATE K 500 MG TAB PO SCH ×3 (05:06→20:11)
[2016-05-11] MEDS: INSULIN ASPART SUPPLEMENTAL SCALE SQ SCH ×4 (05:14→20:14)
[2016-05-11 06:51] LABS: HEMATOCRIT 30.7 % (35.0-46.0); REVIEW FLAG FINAL
[2016-05-11 07:07] LABS: BICARBONATE 28.1 MEQ/L (21.0-32.0); POTASSIUM 3.8 MEQ/L (3.5-5.1)
[2016-05-11 08:00] VITALS: BP 121/75; PULSE 74; RESP 16; TEMP 98.4; O2SAT 99
[2016-05-11] MEDS: SODIUM CHLORIDE 0.9% FLUSH 5 ML FLUSH FLUSH SCH ×2 (09:00→20:12)
[2016-05-11] MEDS: COLLAGENASE OINT 30 GM TUBE TOP SCH (09:00)
[2016-05-11] MEDS ORDERED: PEG (High)/E-LYTE SOLN 4000 ML BTL PO ONE ×2 (09:30→17:45)
[2016-05-11] MEDS ORDERED: SOD PHOSPHATE/SOD BIPHOSPHATE (ADULT) ENEMA 133ML PR ONE (09:30)
[2016-05-11] MEDS: BETHANECHOL CHL 25 MG TAB PO SCH ×4 (09:31→20:11)
[2016-05-11] MEDS: azaTHIOprine 50 MG TAB PO SCH ×2 (09:31→20:11)
[2016-05-11] MEDS: BUDESONIDE-FORMOTEROL 160/4.5 MCG INHALER INH SCH ×2 (09:31→20:14)
[2016-05-11] MEDS: PREGABALIN 100 MG CAP PO SCH ×3 (09:31→18:51)
--- NOTE | 2016-05-11 09:35 | HHI.GIFU ---
GI Follow-up Note Consult Follow-up Subjective: Patient says her breathing is much more comfortable today, after receiving breathing treatments. No further blood per stoma. Objective: PHYSICAL EXAMINATION: Vitals signs stable No fever HEENT: EOMI CHEST: Chest is clear to auscultation CARDIAC: Regular rate and rhythm with no murmur gallop or rubs. ABDOMEN: Soft, nondistended, still with minimal tenderness cephalad of stoma. QUAIL FARMER: MS tremor witnessed; alert and oriented times three. Available Data (labs, X- Rays, Procedues) : H/H stable. ASSESSMENT/PLAN: Stomal bleed; no blood noted in several days. Her breathing is more comfortable. Will schedule flexible sigmoidoscopy and transcolostomy colonoscopy for tomorrow. It was a pleasure seeing Hannah Garner. Entered by: Rodriguez Ferguson MD May 11, 2016 09:35
[2016-05-11 12:00] VITALS: BP 125/65; PULSE 80; RESP 16; TEMP 98.5; O2SAT 95
[2016-05-11 14:13] LABS: HEMATOCRIT 30.1 % (35.0-46.0); REVIEW FLAG FINAL
[2016-05-11 16:00] VITALS: BP 107/65; PULSE 99; RESP 18; TEMP 98.4; O2SAT 96
[2016-05-11] MEDS ORDERED: RESP: ALBUTEROL 2.5 MG/IPRATROPIUM 0.5 MG NEB (SCH) NEB (16:53)
[2016-05-11 20:00] VITALS: BP 151/73; PULSE 81; RESP 18; TEMP 98.3; O2SAT 95
[2016-05-11] MEDS: SODIUM CHLOR 0.9% 1000 ML INJ 1,000 ML IV SCH (20:12)
[2016-05-11] MEDS: ONDANSETRON HCL 4 MG/2 ML VIAL IV PUSH PRN (20:23)
[2016-05-11 21:17] LABS: HEMATOCRIT 29.3 % (35.0-46.0); REVIEW FLAG FINAL
--- NOTE | 2016-05-11 22:50 | HHI.PR ---
Subjective Remarks Patient seen today around 3:30 PM. Says she is feeling better than yesterday. Sensation of shortness of breath has resolved with home inhaled meds. She reports headache still present but slightly improved. No abdominal pain. No blood in colostomy bag. Objective Vital Signs Date Time Temp Pulse Resp B/P Pulse Ox O2 Delivery O2 Flow Rate FiO2 05/11/16 20:15 Room Air 05/11/16 20:00 98.3 81 18 151/73 95 05/11/16 16:00 98.4 99 18 107/65 96 05/11/16 15:44 20 05/11/16 15:44 20 05/11/16 12:00 98.5 80 16 125/65 95 05/11/16 10:00 Room Air 05/11/16 08:00 98.4 74 16 121/75 99 05/11/16 04:00 98.5 68 18 110/62 97 05/11/16 00:00 98.1 72 18 104/61 97 I/O 05/10/16 05/10/16 05/10/16 05/11/16 05/11/16 05/11/16 07:00 15:00 23:00 07:00 15:00 23:00 Intake Total 360 ml 1280 ml 360 ml 240 ml 480 ml Output Total 200 ml Balance 160 ml 1280 ml 360 ml 240 ml 480 ml Intake Oral 360 ml 480 ml 360 ml 240 ml 480 ml IV Total 800 ml Stool Total 200 ml # Voids 3 4 3 5 2 # Bowel Movements 1 1 Result Diagram: 05/11/16204605/11/16617 Objective Remarks GENERAL: Patient sitting up in bed. Appears comfortable. Alert and oriented 3. SKIN: Warm and dry. sacral ulcer with small overlying slough no pus. HEAD: Normocephalic. EYES: No scleral icterus. No injection or drainage. NECK: Supple, trachea midline. No JVD. CARDIOVASCULAR: Regular rate and rhythm without murmurs, gallops, or rubs. RESPIRATORY: Breath sounds equal bilaterally. No accessory muscle use. GASTROINTESTINAL: Abdomen soft, non-tender, nondistended. Colostomy bag. Her blood in colostomy bag today. No surrounding erythema or signs of infection. MUSCULOSKELETAL: No cyanosis, or edema. BACK: Nontender without obvious deformity. No CVA tenderness. A/P Assessment and Plan 55-year-old AA female patient with PMH of multiple sclerosis diagnosed in 2004, bedridden for the past 5 years, HTN, DM, NAPOLEON, COPD, history of FELIPE but patient denies CKD, colostomy placed s/p bowel obstruction; presents to the ER 05/02 because she reports she has not urinated in the past 2-3 days, with generalized pain, weakness, and shortness of breath Sepsis with UTI: UA with pos nitrites, large leuks, many WBCs/bacteria. -s/p 2L IVF bolus in the ER, and continue IVF at 100cc/hr -Urine culture resulted with Citrobacter Amalonaticus -S/p IV Rocephin, then po Bactrim, now with urine culture resulted, Changed antibiotics to IV Zosyn -Consult ID, appreciate recommendations -Blood culture with no growth to date -BP improved, sepsis resolved -05/08 Appreciate infectious disease assistance. Switched to Augmentin. Continue antibiotics as per infectious disease. -05/11 Continue Augmentin as per infectious disease. //COPD. -respiratory status appears stable, although patient reports some sob over past week being of inhaled albuterol and BID symbicort. will restart. assess response. -05/11. History status improved on home inhaled meds. //Urinary frequency/incontinence, likely incomplete voiding: with sacrococcyx/ coccyx wounds and UTI -keep area clean and dry -Normal renal sonogram -Bladder scan unremarkable. Continue to monitor //Sacral/coccyx wounds, and L breast wound -consult wound care, appreciate recommendations -patient needs wave bed, repositioning every 2 hrs -Continue wound care -05/10 dw nursing. small amount of slough on wound. order laure, wound care consult pending. //Rhabdomyolysis- CPK 1016, with sepsis in a bedridden patient -Given IVF boluses, now on maintenance IVF -Repeat CPK 435, Resolved. //Acute kidney injury: suspect secondary to dehydration -On IVF -repeat labs with improvement back to normal. -resolved, avoid nephrotoxins. //Multiple sclerosis: continue azathioprine -Consult Neurology, Patient known to Dr. Hays -Seen by Dr. Phillips, hold off on IV steroids for now, patient improving with antibiotics -Brain MRI and C-spine MRI as above. Follow-up neurosurgery recommendations. //Cervical Stenosis: seen on C-spine MRI, could be contributing to weakness -neurology consulted neurosurgeon. -Neurologic exam stable. -Follow-up neurosurgery recommendations. -We will contact neurosurgery tomorrow morning for recommendations regarding cervical spinal stenosis. //History of hypertension: Patient was hypotensive. -Pressure acceptable. Hold home lisinopril at this time. //Generalized pain: acute on chronic -continue patient's home medication morphine IR 15 mg tid prn -added tylenol as needed, encouraged patient to use tylenol instead with low BP -bilateral hand pain, patient requested Voltaren cream however discussed with pharmacy, no topical NSAID, only has Bengay, will continue. //Lower GI bleed. -05/07. Patient reports bleeding from colostomy starting tonight of 05/06. Hemoglobin every 6 hours. Gastroenterology evaluation. Discontinue heparin. Start SCDs. -05/08.anemia. Hemoglobin stable.follow-up gastroenterology consult. Continue to monitor -05/09. Hemoglobin stable. Appreciate gastroenterology assistance. CT with no acute findings. Possible colonoscopy. Continue to follow hemoglobin. 05/10. hgb stable. appreciate GI assist 05/11. Hemoglobin stable. Bleeding has stopped off of anticoagulation. Stop every 6 hemoglobin. Plan for colonoscopy in the morning. DVT prophylaxis: As patient has lower GI bleed, hold anticoagulation. SCDs.. Discharge Planning Continues on treatment for UTI, now on Augmentin Continues with neurosurgery evaluation Lower GI bleed.GI evaluation -Expect discharge home with home health in 3 days. Moi Wilson MD May 11, 2016 22:50
[2016-05-12] VITALS: BP 135/72; PULSE 72; RESP 18; TEMP 98.4; O2SAT 96
[2016-05-12] MEDS: MORPHINE SULFATE 15 MG TAB PO PRN ×2 (00:04→16:20)
[2016-05-12] MEDS: RESP: ALBUTEROL 2.5 MG/IPRATROPIUM 0.5 MG NEB (SCH) NEB ×4 (00:19→23:46)
[2016-05-12 04:00] VITALS: BP 138/64; PULSE 74; RESP 17; TEMP 98; O2SAT 99
[2016-05-12] MEDS: AMOXICILLIN/CLAVULANATE K 500 MG TAB PO SCH ×3 (05:52→22:10)
[2016-05-12] MEDS: INSULIN ASPART SUPPLEMENTAL SCALE SQ SCH ×5 (05:53→22:13)
[2016-05-12] MEDS: LACTATED RINGER'S 1000 ML IV SCH (06:00)
[2016-05-12] MEDS: PREGABALIN 100 MG CAP PO SCH ×3 (07:58→18:00)
[2016-05-12] MEDS: BETHANECHOL CHL 25 MG TAB PO SCH ×4 (07:58→22:11)
[2016-05-12] MEDS: azaTHIOprine 50 MG TAB PO SCH ×2 (07:58→22:11)
[2016-05-12] MEDS ORDERED: SOD PHOSPHATE/SOD BIPHOSPHATE (ADULT) ENEMA 133ML PR ONE (08:00)
[2016-05-12 08:48] VITALS: BP 138/64; PULSE 74; RESP 17; TEMP 98; O2SAT 99
[2016-05-12 09:01] LABS: AUTOMATED NEUTROPHIL # 5.2 TH/MM3 (1.8-7.7); BASOPHIL % 0.4 % (0.0-2.0); EOSINOPHIL # 0.1 TH/MM3 (0-0.4); EOSINOPHIL % 0.8 % (0.0-4.0); HEMATOCRIT 31.6 % (35.0-46.0); HEMO FLAGS DIFF FINAL; LYMPH % 30.9 % (9.0-44.0); LYMPHOCYTE # 2.6 TH/MM3 (1.0-4.8); MEAN CELL VOLUME 87.1 FL (80.0-100.0); MEAN CORPUSCULAR HEMOGLOBIN 28.4 PG (27.0-34.0); MEAN CORPUSCULAR HGB CONC 32.6 % (32.0-36.0); NEUT % 62.9 % (16.0-70.0); PLATELET COUNT 297 TH/MM3 (150-450); RED BLOOD COUNT 3.62 MIL/MM3 (4.00-5.30); RED CELL DISTRIBUTION WIDTH 13.7 % (11.6-17.2); WHITE BLOOD COUNT 8.3 TH/MM3 (4.0-11.0)
[2016-05-12 09:43] LABS: BICARBONATE 30.5 MEQ/L (21.0-32.0); POTASSIUM 3.8 MEQ/L (3.5-5.1)
[2016-05-12] MEDS ORDERED: PROPOFOL 200 MG/20 ML AMP IV ONE (10:19)
--- NOTE | 2016-05-12 11:21 | MR ---
cc: RODRIGUEZ WINCHESTER M.D., RIZALINA M.D. JEREMIAH CUELLAR DATE 05/12/2016 DATE OF 1960 PROCEDURE Incomplete colonoscopy and trans-ileostomy ileoscopy performed by Dr. Rodriguez Zavala. The patient is an inpatient. INDICATION FOR PROCEDURE Red blood via stoma. In addition, she has not undergone colonoscopy since 1997 and is 55 years of age. The records suggest that the patient had a colostomy because of severe constipation in the past. Examination today reveals a double barrel stoma with an ileostomy and a lumen supposedly into the colon through this orifice was too tight to allow insertion of the colonoscope or a digital examination using my pinky. PREP She received Fleet enema prior to this in preparation as well as an oral GoLYTELY prep to clean out the GI tract proximal to the stoma. MEDICATIONS Sedation per Anesthesiology INSTRUMENT The Pentax video colonoscope. PROCEDURE After obtaining written informed consent the patient was placed in the left lateral decubitus position. Adequate sedation was administered. A digital rectal examination was performed. Hard fecal matter was present in the rectal vault. The colonoscope was placed into the anus and advanced slowly to the transverse colon, through an inspissated, stool-filled colon. The mucosa that could be seen appeared normal. The instrument would now advance beyond a large bolus of fecal matter in the transverse colon. Upon withdrawal of the instrument, the mucosal surfaces were suboptimally visualized due to retained, inspissated stool. Retroflexion of the instrument in the rectum revealed no abnormalities. The instrument was withdrawn. Digital examination did not allow entry into the orifice and to the colon but examination of the ileostomy revealed no palpable lesions. The colonoscope was placed through the stoma and advanced 60 cm proximally into the ileum. The mucosa appeared normal. No lesions were encountered to explain the bleeding. The instrument was withdrawn. The procedure was terminated. She tolerated it well. There no apparent complications. Upon completion she was sedated and had normal, stable vital signs. IMPRESSION 1. Incomplete colonoscopy due to inspissated stool that has likely been there since the double barrel stoma was placed. 2. No gross lesions identified. 3. Trans-ileostomy ileoscopy to 60 cm with no abnormalities detected. The retained fecal matter was a green to brown color with no evidence of blood. She has seen no blood via the stoma in over four days. It is unclear exactly what may have caused that. DISPOSITION The patient is to be observed per routine postprocedure protocol. She may return to her room where she will resume her prior diet and orders. We will consider Gastrografin enema. We will discuss this with her. We will try to clean out the residual inspissated stool, though this may be quite challenging. MD NERI Scott/GARRY /10:47 AM /11:02 AM
[2016-05-12] MEDS: SODIUM CHLORIDE 0.9% FLUSH 5 ML FLUSH FLUSH SCH ×2 (11:37→21:00)
[2016-05-12] MEDS: BUDESONIDE-FORMOTEROL 160/4.5 MCG INHALER INH SCH ×2 (11:37→22:12)
[2016-05-12] MEDS: COLLAGENASE OINT 30 GM TUBE TOP SCH (11:37)
[2016-05-12 12:00] VITALS: BP 116/67; PULSE 84; RESP 20; TEMP 98.2; O2SAT 93
[2016-05-12] MEDS ORDERED: DIATRIZOATE MEGLUM/DIATRIZOATE SOD 120 ML BTL (for RAD DIAG) RECTAL ONE (15:50)
[2016-05-12] MEDS: ONDANSETRON HCL 4 MG/2 ML VIAL IV PUSH PRN (16:19)
[2016-05-12 16:20] VITALS: BP 98/58; PULSE 85; RESP 14; TEMP 97.7; O2SAT 94
[2016-05-12] MEDS: SODIUM CHLOR 0.9% 1000 ML INJ 1,000 ML IV SCH (16:29)
--- NOTE | 2016-05-12 17:52 | HHI.PR ---
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 Plan Her MS appears stable and would not recommend therapy for MS at this time start zanaflex for spasticity Diagnosis/Plan: Subjective Subjective Comments No acute events reported She feels strength is improving but having more spasms in legs and arms Active Medications Current Medications Medications (Trade) Dose Ordered Sig/Garrison Route Start Time Stop Time Status Last Admin (NS 1000 ml Inj) 1,000 ml @ 100 mls/hr Q10H IV 05/03/16 00:27 05/12/16 16:29 (NS Flush) 2 ml UNSCH PRN FLUSH 05/03/16 00:30 05/11/16 20:24 (NS Flush) 2 ml BID FLUSH 05/03/16 09:00 05/12/16 11:37 (Heparin Inj) 5,000 units Q8H SQ 05/03/16 09:00 Hold 05/07/16 17:27 (Narcan Inj) 0.4 mg UNSCH PRN IV 05/03/16 00:30 (Zofran Inj) 4 mg Q6HR PRN IV PUSH 05/03/16 03:45 05/12/16 16:19 (Imuran) 50 mg BID PO 05/03/16 09:00 05/11/16 20:11 (Urecholine) 25 mg QID PO 05/03/16 09:00 05/12/16 12:49 (D50w (Vial) Inj) 25 ml UNSCH PRN IV PUSH 05/03/16 03:45 (Glucagon Inj) 1 mg UNSCH PRN OTHER 05/03/16 03:45 (Compazine Inj) 10 mg Q8H PRN IVS 05/03/16 09:15 (Msir) 15 mg Q8H PRN PO 05/03/16 15:45 05/12/16 16:20 (Tylenol) 650 mg Q6H PRN PO 05/03/16 09:15 05/06/16 18:59 (Lyrica) 100 mg TID PO 05/06/16 18:00 05/12/16 12:49 (Watson Mccollum Oint) 1 applic UNSCH PRN TOP 05/06/16 15:30 (Augmentin) 500 mg Q8HR PO 05/08/16 14:00 05/18/16 13:59 05/12/16 12:49 (Santyl Oint) 1 applic DAILY TOP 05/10/16 16:45 05/12/16 11:37 Budesonide/ Formoterol Fumarate 1 puff 1 puff Q12HR INH 05/10/16 21:00 05/12/16 11:37 (Lr 1000 ml Inj) 1,000 ml @ 30 mls/hr Q24H IV 05/12/16 06:00 Allergies Allergies Coded Allergies No Known Allergies (Verified05/02/16) Review of Systems Constitutional: Negative Eye: Negative Respiratory: Negative Cardiovascular: Negative Gastrointestinal: Negative Duane/Lymph: Negative Musculoskeletal: Negative Neurologic: Negative except HPI Psychiatric: Negative All other ROS: ROS reviewed as documented in chart Exam I&O / VS 05/11/16 05/11/16 05/12/16 15:00 23:00 07:00 Intake Total 480 ml 450 ml 0 ml Balance 480 ml 450 ml 0 ml Intake Oral 480 ml 450 ml 0 ml # Voids 2 3 # Bowel Movements 1 Vital Signs Date Time Temp Pulse Resp B/P Pulse Ox O2 Delivery O2 Flow Rate FiO2 05/12/16 16:20 97.7 85 14 98/58 94 05/12/16 12:00 98.2 84 20 116/67 93 05/12/16 11:03 88 18 128/67 95 05/12/16 10:54 94 18 128/69 95 05/12/16 10:46 97.8 86 18 133/69 94 05/12/16 08:48 98.0 74 17 138/64 99 05/12/16 04:00 98.0 74 17 138/64 99 05/12/16 00:00 98.4 72 18 135/72 96 05/11/16 20:15 Room Air 05/11/16 20:00 98.3 81 18 151/73 95 General: Alert and Oriented Eye: EOMI Respiratory: Lungs CTA Cardiology: Normal rate Neurologic: Alert, Oriented Psychiatric: Cooperative, Appropriate mood & affect, Normal judgement Exam Comments 4+/5 BUE and 4/5 BLE DTR 2+ BLE and BUE Objective Micro and Labs Laboratory Tests Test 05/11/16 05/12/16 20:47 07:50 Hemoglobin 9.8 10.3 Hematocrit 29.3 31.6 White Blood Count 8.3 Red Blood Count 3.62 Mean Corpuscular Volume 87.1 Mean Corpuscular Hemoglobin 28.4 Mean Corpuscular Hemoglobin 32.6 Concent Red Cell Distribution Width 13.7 Platelet Count 297 Mean Platelet Volume 8.3 Neutrophils (%) (Auto) 62.9 Lymphocytes (%) (Auto) 30.9 Monocytes (%) (Auto) 5.0 Eosinophils (%) (Auto) 0.8 Basophils (%) (Auto) 0.4 Neutrophils # (Auto) 5.2 Lymphocytes # (Auto) 2.6 Monocytes # (Auto) 0.4 Eosinophils # (Auto) 0.1 Basophils # (Auto) 0.0 CBC Comment DIFF FINAL Differential Comment Sodium Level 139 Potassium Level 3.8 Chloride Level 101 Carbon Dioxide Level 30.5 Anion Gap 8 Blood Urea Nitrogen 6 Creatinine 0.63 Estimat Glomerular Filtration 118 Rate Random Glucose 103 Calcium Level 8.8 Mike Phillips PhD MD May 12, 2016 17:52
--- NOTE | 2016-05-12 18:29 | RADRPT ---
EXAM DATE/TIME: 05/12/2016 15:04 [facility] COMPARISON: No previous studies available for comparison. INDICATIONS : Incomplete colonoscopy today, fecal matter 5 years post ileostomy FLUORO TIME: 2.2 minutes IMAGE COUNT: 22 CONTRAST: [facility] MEDICAL HISTORY : Multiple sclerosis. SURGICAL HISTORY : Ileostomy x 5 years ENCOUNTER: Initial ACUITY: 1 day PAIN SCORE: 0/10 LOCATION: Bilateral abdomen FINDINGS: The patient has had a previous diverting colostomy and has solid stool throughout the colon. Gastrografin was instilled to what looks like a defunctionalized colon that does contain a moderate a mount of solid stool. Most of the solid stool is in the ascending and transverse colon. There is very little emptying of the colon from the splenic flexure down. There is minimal reflux int o what looks like a defunctionalized terminal ileum. CONCLUSION: 1. The patient has had a previous diverting colostomy and has solid stool throughout the colon. 2. Gastrografin was instilled to what looks like a defunctionalized colon that does contain a moderat e amount of solid stool. Most of the solid stool is in the ascending and transverse colon. 3. There is very little emptying of the colon from the splenic flexure down. There is minimal reflux into what looks like a defunctionalized terminal ileum. Ford Darby MD FACR on May 12, 2016 at 16:27 Board Certified Radiologist. This report was verified electronically.
[2016-05-12 20:00] VITALS: BP 109/55; PULSE 90; RESP 20; TEMP 97.8; O2SAT 96
--- NOTE | 2016-05-12 22:36 | HHI.PR ---
Subjective Remarks patient seen today around 1 PM. Says she is feeling well. Denies any chest pain or shortness of breath. Has some spasms in her extremities which are bothersome. Reports headache continues with slight improvement. Objective Vital Signs Date Time Temp Pulse Resp B/P Pulse Ox O2 Delivery O2 Flow Rate FiO2 05/12/16 20:00 97.8 90 20 109/55 96 05/12/16 16:20 97.7 85 14 98/58 94 05/12/16 12:00 98.2 84 20 116/67 93 05/12/16 11:03 88 18 128/67 95 05/12/16 10:54 94 18 128/69 95 05/12/16 10:46 97.8 86 18 133/69 94 05/12/16 08:48 98.0 74 17 138/64 99 05/12/16 04:00 98.0 74 17 138/64 99 05/12/16 00:00 98.4 72 18 135/72 96 I/O 05/11/16 05/11/16 05/11/16 05/12/16 05/12/16 05/12/16 07:00 15:00 23:00 07:00 15:00 23:00 Intake Total 240 ml 480 ml 450 ml 0 ml 440 ml Balance 240 ml 480 ml 450 ml 0 ml 440 ml Intake Oral 240 ml 480 ml 450 ml 0 ml 240 ml Other 200 ml # Voids 5 2 3 5 # Bowel Movements 1 4 Result Diagram: 05/12/16 0750 05/12/16 0750 Objective Remarks GENERAL: Patient sitting up in bed. Appears comfortable. Alert and oriented 3.no change on exam SKIN: Warm and dry. sacral ulcer with small overlying slough no pus. HEAD: Normocephalic. EYES: No scleral icterus. No injection or drainage. NECK: Supple, trachea midline. No JVD. CARDIOVASCULAR: Regular rate and rhythm without murmurs, gallops, or rubs. RESPIRATORY: Breath sounds equal bilaterally. No accessory muscle use. GASTROINTESTINAL: Abdomen soft, non-tender, nondistended. Colostomy bag. Her blood in colostomy bag today. No surrounding erythema or signs of infection. MUSCULOSKELETAL: No cyanosis, or edema. BACK: Nontender without obvious deformity. No CVA tenderness. A/P Assessment and Plan 55-year-old AA female patient with PMH of multiple sclerosis diagnosed in 2004, bedridden for the past 5 years, HTN, DM, NAPOLEON, COPD, history of FELIPE but patient denies CKD, colostomy placed s/p bowel obstruction; presents to the ER 05/02 because she reports she has not urinated in the past 2-3 days, with generalized pain, weakness, and shortness of breath Sepsis with UTI: UA with pos nitrites, large leuks, many WBCs/bacteria. -s/p 2L IVF bolus in the ER, and continue IVF at 100cc/hr -Urine culture resulted with Citrobacter Amalonaticus -S/p IV Rocephin, then po Bactrim, now with urine culture resulted, Changed antibiotics to IV Zosyn -Consult ID, appreciate recommendations -Blood culture with no growth to date -BP improved, sepsis resolved -05/08 Appreciate infectious disease assistance. Switched to Augmentin. Continue antibiotics as per infectious disease. -= Continue Augmentin as per infectious disease. //COPD. -respiratory status appears stable, although patient reports some sob over past week being of inhaled albuterol and BID symbicort. will restart. assess response. -05/11. History status improved on home inhaled meds. //Urinary frequency/incontinence, likely incomplete voiding: with sacrococcyx/ coccyx wounds and UTI -keep area clean and dry -Normal renal sonogram -Bladder scan unremarkable. Continue to monitor //Sacral/coccyx wounds, and L breast wound -consult wound care, appreciate recommendations -patient needs wave bed, repositioning every 2 hrs -Continue wound care -05/10 dw nursing. small amount of slough on wound. order laure, wound care consult pending. //Rhabdomyolysis- CPK 1016, with sepsis in a bedridden patient -Given IVF boluses, now on maintenance IVF -Repeat CPK 435, Resolved. //Acute kidney injury: suspect secondary to dehydration -On IVF -repeat labs with improvement back to normal. -resolved, avoid nephrotoxins. //Multiple sclerosis: continue azathioprine -Consult Neurology, Patient known to Dr. Hays -Seen by Dr. Phillips, hold off on IV steroids for now, patient improving with antibiotics -Brain MRI and C-spine MRI as above. Follow-up neurosurgery recommendations. //Cervical Stenosis: seen on C-spine MRI, could be contributing to weakness -neurology consulted neurosurgeon. -Neurologic exam stable. -Follow-up neurosurgery recommendations. -neurosurgery recommends follow-up as outpatient //History of hypertension: Patient was hypotensive. -Pressure acceptable. Hold home lisinopril at this time. //Generalized pain: acute on chronic -continue patient's home medication morphine IR 15 mg tid prn -added tylenol as needed, encouraged patient to use tylenol instead with low BP -bilateral hand pain, patient requested Voltaren cream however discussed with pharmacy, no topical NSAID, only has Bengay, will continue. //Lower GI bleed. -05/07. Patient reports bleeding from colostomy starting tonight of 05/06. Hemoglobin every 6 hours. Gastroenterology evaluation. Discontinue heparin. Start SCDs. -05/08.anemia. Hemoglobin stable.follow-up gastroenterology consult. Continue to monitor -05/09. Hemoglobin stable. Appreciate gastroenterology assistance. CT with no acute findings. Possible colonoscopy. Continue to follow hemoglobin. 05/10. hgb stable. appreciate GI assist 05/11. Hemoglobin stable. Bleeding has stopped off of anticoagulation. Stop every 6 hemoglobin. Plan for colonoscopy in the morning. =gastroenterology workup [place] appreciate assistance. DVT prophylaxis: As patient has lower GI bleed, hold anticoagulation. SCDs.. Discharge Planning possible discharge home with home health tomorrow. Will need follow-up with neurosurgery as outpatient. Lower GI bleed.GI evaluationongoing. -Expect discharge home with home health in 3 days. Moi Wilson MD May 12, 2016 22:36
[2016-05-13] VITALS: BP 82/52; PULSE 93; RESP 20; TEMP 98; O2SAT 97
[2016-05-13] MEDS: SODIUM CHLOR 0.9% 1000 ML INJ 1,000 ML IV SCH ×2 (00:27→08:33)
[2016-05-13 04:00] VITALS: BP 93/52; PULSE 84; RESP 20; TEMP 98.2; O2SAT 99
[2016-05-13] MEDS: AMOXICILLIN/CLAVULANATE K 500 MG TAB PO SCH ×2 (05:42→12:06)
[2016-05-13] MEDS: MORPHINE SULFATE 15 MG TAB PO PRN (05:44)
[2016-05-13] MEDS: LACTATED RINGER'S 1000 ML IV SCH (05:45)
--- NOTE | 2016-05-13 06:36 | HHI.GIFU ---
GI Follow-up Note Consult Follow-up Subjective: Patient laying in bed comfortably, no new complaints except burning discomfort superior to the stoma--where she'd had pain previously and the CT scan revealed no pathology. Red material in stoma. Objective: PHYSICAL EXAMINATION: Vitals signs stable No fever HEENT: EOMI ABDOMEN: Soft, nondistended, minimal tenderness superior to the stoma. Red material in the stoma is due to the red jello she ate last evening; it's not blood. DEVELOPMENT ADMINISTRATOR: ; alert and oriented times three. Available Data (labs, X- Rays, Procedues) : Hgb up to 10.3. GGE revealed formed stool; no neoplasms. ASSESSMENT/PLAN:She may actually never have passed blood per stoma; just like now, it may have been something red she had eaten. Hgb is stable/up. I suspect the burning/tender RUQ is related to adhesions. I'll sign off. She may follow up with Dr. Woods after discharge. It was a pleasure seeing Hannah Garner. Entered by: Rodriguez Ferguson MD May 13, 2016 06:36
[2016-05-13] MEDS: INSULIN ASPART SUPPLEMENTAL SCALE SQ SCH ×3 (07:00→16:03)
[2016-05-13] MEDS: RESP: ALBUTEROL 2.5 MG/IPRATROPIUM 0.5 MG NEB (SCH) NEB ×2 (07:33→16:00)
[2016-05-13 08:00] VITALS: BP_SYST 101; BP_SYST 129; BP_DIAS 54; BP_DIAS 68; PULSE 105; PULSE 86; RESP 18; RESP 20; TEMP 98.5; TEMP 98.6; O2SAT 94; O2SAT 97
[2016-05-13] MEDS: SODIUM CHLORIDE 0.9% FLUSH 5 ML FLUSH FLUSH SCH (08:30)
[2016-05-13] MEDS: ONDANSETRON HCL 4 MG/2 ML VIAL IV PUSH PRN (08:31)
[2016-05-13] MEDS: PREGABALIN 100 MG CAP PO SCH ×3 (08:33→16:04)
[2016-05-13] MEDS: BETHANECHOL CHL 25 MG TAB PO SCH ×3 (08:33→16:04)
[2016-05-13] MEDS: azaTHIOprine 50 MG TAB PO SCH (08:33)
[2016-05-13] MEDS: BUDESONIDE-FORMOTEROL 160/4.5 MCG INHALER INH SCH (08:34)
[2016-05-13] MEDS: COLLAGENASE OINT 30 GM TUBE TOP SCH (08:35)
[2016-05-13 12:00] VITALS: BP 116/66; PULSE 82; RESP 18; TEMP 98.5; O2SAT 97
[2016-05-13] MEDS ORDERED: TIZA4 PO (13:39)
[2016-05-13] MEDS ORDERED: AUGM500T7 PO (13:59)
--- NOTE | 2016-05-19 01:24 | HHI.DS ---
cc: Chanelle Khan MD Discharge Summary Admission Date May 03, 2016 at 00:27 Discharge Date: May 13, 2016 Admitting Diagnosis uti/sepsis (1) Sepsis ICD Code: A41.9 (2) UTI (urinary tract infection) ICD Code: N39.0 (3) Acute kidney injury ICD Code: N17.9 (4) Chronic pain ICD Code: G89.29 (5) Multiple sclerosis ICD Code: G35 Procedures no invasive procedures. Imaging as below. Brief History - From Admission This is a pleasant 55-year-old female patient with past medical history which includes multiple sclerosis diagnosed in 2004, patient has been bedridden for the past 5 years, hypertension, diabetes mellitus, sleep apnea, COPD history of acute kidney injury but patient denies chronic kidney disease, colostomy placed status post bowel obstruction. Patient patient's emergency department today because she reports she has not urinated in the past 2-3 days. Patient reports over the past 2 weeks she has had nausea and vomited approximately 3 times will she is sleeping she wakes up vomiting. Patient also reports intermittent periods of shortness of breath worse than her typical COPD. Patient complains of chronic generalized pain which she takes morphine immediate release 15 mg Q4H as needed at home. Patient denies fevers chills chest pain, or change in colostomy output. Patient reports she has not been eating or drinking as much as she typically does. Imaging Last Impressions Enema w/Water Soluble 05/12/16 0000 Signed Impressions: Service Date/Time: Thursday, May 12, 2016 15:04 - CONCLUSION: 1. The patient has had a previous diverting colostomy and has solid stool throughout the colon. 2. Gastrografin was instilled to what looks like a defunctionalized colon that does contain a moderate amount of solid stool. Most of the solid stool is in the ascending and transverse colon. 3. There is very little emptying of the colon from the splenic flexure down. There is minimal reflux into what looks like a defunctionalized terminal ileum. Ford Darby MD FACR Abdomen/Pelvis CT 05/09/16 0000 Signed Impressions: Service Date/Time: Monday, May 09, 2016 15:33 - CONCLUSION: 1. The ileostomy along the anterior abdominal wall is unremarkable and patent. 2. Nonspecific edema in the subcutaneous soft tissues along both flanks suggestive of anasarca. 3. Stable bibasilar scarring. 4. No new or significant changes compared to the prior exam. Abhijit Oleary MD Upper Extremity Ultrasound 05/07/16 0000 Signed Impressions: Service Date/Time: Saturday, May 07, 2016 22:31 - CONCLUSION: No DVT. Vin Blue MD Renal Ultrasound 05/06/16 0000 Signed Impressions: Service Date/Time: Friday, May 06, 2016 11:49 - CONCLUSION: Normal renal sonogram. Isaiah Camp MD Cervical Spine MRI 05/04/16 0000 Signed Impressions: Service Date/Time: Wednesday, May 04, 2016 15:05 - CONCLUSION: 1. Atrophic cervical cord with increased T2 signal. Differential diagnosis includes chronic changes of multiple sclerosis or myelomalacia secondary to other etiologies. There is no prior study for comparison. 2. Focal moderate-sized central disc protrusion at C5-6 resulting in moderate cord compression. Tom Torres MD Brain MRI 05/04/16 0000 Signed Impressions: Service Date/Time: Wednesday, May 04, 2016 15:05 - CONCLUSION: No significant white matter disease to suggest multiple sclerosis within the brain. Several tiny focal signal abnormalities seen, commonly seen at this age. No recent infarct, mass, hemorrhage or shift. Tom Torres MD Chest X-Ray 05/02/161956 Signed Impressions: Service Date/Time: Monday, May 02, 2016 20:11 - CONCLUSION: Linear increased density identified at the bases bilaterally likely representing some scarring or atelectasis. These findings were present previously and appear unchanged. Vin Blue MD PE at Discharge GENERAL: Well-nourished, well-developed female patient in NAD. Bedridden. SKIN: Warm and dry. Sacral ulceration 2 and ulceration at left breast. HEENT: Normocephalic. Atraumatic. Pupils equal and round. No scleral icterus. No injection or drainage. Mucous membranes pink and moist. NECK: Supple. Trachea midline. CARDIOVASCULAR: Regular rate and rhythm. S1, S2 noted. No murmur appreciated. RESPIRATORY: No accessory muscle use. Clear to auscultation. Breath sounds equal bilaterally. GASTROINTESTINAL: Abdomen soft, non-tender, nondistended. Normoactive bowel sounds x4. MUSCULOSKELETAL: Extremities without clubbing, cyanosis, or edema. NEUROLOGICAL: Awake and alert. Spastic contracted bilateral lower extremities with bilateral foot drop. Normal speech. PSYCHIATRIC: Appropriate mood and affect; insight and judgment normal. Pt update on day of discharge patient feeling well. Would like to go home. Hospital Course Patient was treated for UTI with broad-spectrum antibiotics. Urinalysis grew out Citrobacter resistant to multiple antibiotics; patient symptoms improved and she was sent home on Augmentin to complete treatment course. Due to increased weakness and lethargy, neurology was consult and due to history of MS ; MRI of brain and spine performed, showing moderate cord compression as above. Neurosurgery was consulted, recommends follow-up in outpatient clinic. Hospitalization was complicated by bleeding into stoma; GI was consult and for this, and workup as above negative; this was felt to be possibly secondary to read cello. Hemoglobin stable at baseline. Patient also with a mild elevation in CK on admission which resolved with fluids. Also acute kidney injury with creatinine 2.1 on admission, resolved to baseline with antibiotics and fluids. Renal ultrasound is negative as above. For problem-based summary for most recent progress note, please see below. 55-year-old AA female patient with PMH of multiple sclerosis diagnosed in 2004, bedridden for the past 5 years, HTN, DM, NAPOLEON, COPD, history of FELIPE but patient denies CKD, colostomy placed s/p bowel obstruction; presents to the ER 05/02 because she reports she has not urinated in the past 2-3 days, with generalized pain, weakness, and shortness of breath Sepsis with UTI: UA with pos nitrites, large leuks, many WBCs/bacteria. -s/p 2L IVF bolus in the ER, and continue IVF at 100cc/hr -Urine culture resulted with Citrobacter Amalonaticus -S/p IV Rocephin, then po Bactrim, now with urine culture resulted, Changed antibiotics to IV Zosyn -Consult ID, appreciate recommendations -Blood culture with no growth to date -BP improved, sepsis resolved -05/08 Appreciate infectious disease assistance. Switched to Augmentin. Continue antibiotics as per infectious disease. -= Continue Augmentin as per infectious disease. //COPD. -respiratory status appears stable, although patient reports some sob over past week being of inhaled albuterol and BID symbicort. will restart. assess response. -05/11. History status improved on home inhaled meds. //Urinary frequency/incontinence, likely incomplete voiding: with sacrococcyx/ coccyx wounds and UTI -keep area clean and dry -Normal renal sonogram -Bladder scan unremarkable. Continue to monitor //Sacral/coccyx wounds, and L breast wound -consult wound care, appreciate recommendations -patient needs wave bed, repositioning every 2 hrs -Continue wound care -05/10 dw nursing. small amount of slough on wound. order santyl, wound care consult pending. //Rhabdomyolysis- CPK 1016, with sepsis in a bedridden patient -Given IVF boluses, now on maintenance IVF -Repeat CPK 435, Resolved. //Acute kidney injury: suspect secondary to dehydration -On IVF -repeat labs with improvement back to normal. -resolved, avoid nephrotoxins. //Multiple sclerosis: continue azathioprine -Consult Neurology, Patient known to Dr. Hays -Seen by Dr. Phillips, hold off on IV steroids for now, patient improving with antibiotics -Brain MRI and C-spine MRI as above. Follow-up neurosurgery recommendations. //Cervical Stenosis: seen on C-spine MRI, could be contributing to weakness -neurology consulted neurosurgeon. -Neurologic exam stable. -Follow-up neurosurgery recommendations. -neurosurgery recommends follow-up as outpatient //History of hypertension: Patient was hypotensive. -Pressure acceptable. Hold home lisinopril at this time. //Generalized pain: acute on chronic -continue patient's home medication morphine IR 15 mg tid prn -added tylenol as needed, encouraged patient to use tylenol instead with low BP -bilateral hand pain, patient requested Voltaren cream however discussed with pharmacy, no topical NSAID, only has Bengparker, will continue. //Lower GI bleed. -05/07. Patient reports bleeding from colostomy starting tonight of 05/06. Hemoglobin every 6 hours. Gastroenterology evaluation. Discontinue heparin. Start SCDs. -05/08.anemia. Hemoglobin stable.follow-up gastroenterology consult. Continue to monitor -05/09. Hemoglobin stable. Appreciate gastroenterology assistance. CT with no acute findings. Possible colonoscopy. Continue to follow hemoglobin. 05/10. hgb stable. appreciate GI assist 05/11. Hemoglobin stable. Bleeding has stopped off of anticoagulation. Stop every 6 hemoglobin. Plan for colonoscopy in the morning. =gastroenterology workup [place] appreciate assistance. DVT prophylaxis: As patient has lower GI bleed, hold anticoagulation. SCDs.. Pt Condition on Discharge: Good Discharge Disposition: Disch w/ Home Health Serv Discharge Time: <= 30 minutes Discharge Instructions DIET: Follow Instructions for: Diabetic Diet Activities you can perform: Regular-No Restrictions Follow up Referrals: Neurology - 1 Week with Mike Phillips PhD, MD Neurosurgery - 1 Week with Rosendo Lockett MD PCP Follow-up - 1 Week with Chanelle Khan MD SN[facility]/ with [facility] New Medications: Amoxicillin-Clavulanate (Augmentin) 500-125 mg Tab 500 MG PO Q8HR infection Days 4 TAB Tizanidine (Zanaflex) 4 Mg Tab 4 MG PO Q12HR spasm Days 30 TAB Continued Medications: Alendronate (Alendronate) 70 Mg Tab 70 MG PO Q7D Osteporosis Treatment #4 Ref 0 TAB Azathioprine (Azathioprine) 50 Mg Tab 50 MG PO BID Hazardous agent use appropriate precautions for handling and disposal. Immunosuppression #60 Ref 0 TAB Bethanechol (Bethanechol) 25 Mg Tab 25 MG PO QID Urinary Symptom Managemen Ref 0 TAB Calcium (Calcium) 600 Mg Tab 600 MG PO DAILY TAB Cholecalciferol (Vitamin D) 400 Unit/Ml Drops 400 UNITS PO DAILY #1 BOTTLE Insulin Glargine Inj (Lantus Solostar Pen Inj) 300 Unit/3 Ml Pen 1 UNITS SQ Blood Sugar Management Ref 0 PEN Insulin Lispro (Human) Inj (Humalog Kwikpen Pen Inj) 300 Unit/3 Ml Pen 1 UNITS SQ Blood Sugar Management Ref 0 PEN Lisinopril (Lisinopril) 5 Mg Tab 5 MG PO DAILY Blood Pressure Management #30 Ref 0 TAB Morphine IR (Morphine IR) 15 Mg Tab 15 MG PO Q4H PRN PAIN Ref 0 TAB Ondansetron (Ondansetron) 8 Mg Tab 8 MG PO TID Nausea/Vomiting Ref 0 TAB Discontinued Medications: Clonazepam (Clonazepam) 0.5 Mg Tab 0.5 MG PO BID #60 Ref 0 TAB Pregabalin (Lyrica) 75 Mg Cap 75 MG PO TID #90 Ref 0 CAP Moi Wilson MD May 19, 2016 01:24
[2016-07-07] MEDS ORDERED: LYRI75CA PO (11:34)
[2016-07-07] MEDS ORDERED: TIZA2TAB (11:34)
[2016-07-07] MEDS ORDERED: DICL1GEL (11:34)
[2016-07-07] MEDS ORDERED: MIRTA15 (11:34)
[2016-07-07] MEDS ORDERED: PRED1 (11:34)
[2016-07-07] MEDS ORDERED: OMEP20CA2 (11:34)
[2016-07-07] MEDS ORDERED: METF500T4 (11:34)
[2016-07-07] MEDS ORDERED: VENTAER OROPHARYNG (12:14)
[2016-08-15] MEDS ORDERED: VOLT1GEL4 (12:44)
[2016-08-15] MEDS ORDERED: CALC1TAB87 PO (12:44)
[2016-08-15] MEDS ORDERED: ONDA1TAB17 PO (12:51)
[2016-08-15] MEDS ORDERED: DICY20TA10 PO (12:51)
[2016-08-15] MEDS ORDERED: CLON0.5T PO (12:51)
[2016-08-15] MEDS ORDERED: SYMB160A INH (12:51)
[2016-08-15] MEDS ORDERED: HUMALOG SQ (12:51)
[2016-08-15] MEDS ORDERED: DICL1GEL7 TOPICAL (13:05)
[2016-08-15] MEDS ORDERED: PUMP IT (13:09)
[2016-08-29] MEDS ORDERED: AMIT25TA9 PO (12:13)
== END 2016-05-13 18:31 | disposition home health service (06) | DRG 871 ==
LOC: NEPC 19:51 → NEDA 05-03 00:27 → NEPFCDU 05-03 02:39 → N04B 05-05 22:53
PROVIDERS: ADMIT Hospitalist; ATTEND Hospitalist
PROC: 0DJD8ZZ Inspection of Lower Intestinal Tract, Via Natural or Artificial Opening Endoscopic (ICD-10-PCS; principal; 2016-05-12 10:10)
DX: A41.9 Sepsis, unspecified organism (principal); L89.154 Pressure ulcer of sacral region, stage 4; N17.9 Acute kidney failure, unspecified; E87.2 Acidosis; K31.84 Gastroparesis; M47.12 Other spondylosis with myelopathy, cervical region; G82.20 Paraplegia, unspecified; M62.82 Rhabdomyolysis; E11.43 Type 2 diabetes mellitus with diabetic autonomic (poly)neuropathy; K92.2 Gastrointestinal hemorrhage, unspecified; N30.00 Acute cystitis without hematuria; G35 Multiple sclerosis; J44.9 Chronic obstructive pulmonary disease, unspecified; E11.9 Type 2 diabetes mellitus without complications; G89.29 Other chronic pain; I10 Essential (primary) hypertension; E86.0 Dehydration; G47.33 Obstructive sleep apnea (adult) (pediatric); M60.9 Myositis, unspecified; B96.89 Other specified bacterial agents as the cause of diseases classified elsewhere; L98.499 Non-pressure chronic ulcer of skin of other sites with unspecified severity; D64.9 Anemia, unspecified; K66.0 Peritoneal adhesions (postprocedural) (postinfection); H54.42 Blindness, left eye, normal vision right eye; F41.9 Anxiety disorder, unspecified; Z16.23 Resistance to quinolones and fluoroquinolones; Z74.01 Bed confinement status; Z79.4 Long term (current) use of insulin; Z93.2 Ileostomy status; Z93.3 Colostomy status; Z99.3 Dependence on wheelchair
CPT/HCPCS: 70553; 71010; 72156; 74176; 74270; 76775; 76937; 80048; 80053; 81001; 82550; 82552; 82948; 83605; 83690; 84484; 85014; 85018; 85025; 85610; 85730; 87040; 87077; 87086; 87186; 93005; 93971; 94640; 94664; 96360; A9579; J0696; J1644; J1815; J2060; J2405; J2543; J7030; J7500; Q9963

== ENCOUNTER 2016-08-18 06:17 | Observation (INO) | payer OTHER ==
[~2016-08-18] VITALS: Ht 167.6 cm; Wt 84.3 kg
[~2016-08-18 06:17] MED LIST changes: -ALBU8I INH; +ALEN1TAB48 PO; -BACT800T5 PO; -BECL80AE3 INH; +BETH25TA2 PO; +CALC1TAB87 PO; +CHOL400D2 PO; +CLON0.5T PO; -CLON1 PO; -DICL1GEL TOP; +DICL1GEL7 TOPICAL; +DICY20TA10 PO; -FOSA70TA PO; -GLUCTAB PO; +HUMA100I3 SQ; +HUMALOG SQ; -HUMSS SQ; +LISI-519 PO; +LYRI75CA PO; -METO25TA6 PO; -MIDO5 PO; +MSIR15 PO; -OMEP20CA5 PO; +ONDA1TAB17 PO; -PRED20 PO; -PREG75 PO; +PUMP IT; +SYMB160A INH; -TIZA2TAB PO; +VENTAER OROPHARYNG; +VOLT1GEL4; -[UNRECOGNIZED DRUG - CODE] IMPLANPUMP
[2016-08-18] MEDS ORDERED: CHLORHEXIDINE GLUCONATE 2 % 1 PACK (2 CLOTHS) TOPICAL PRN (07:00)
[2016-08-18] MEDS ORDERED: POVIDONE IODINE 5% (ANTISEPSIS KIT) 4 APPLICATIONS EACH NARE PRN (07:00)
[2016-08-18] MEDS ORDERED: LACTATED RINGER'S 1000 ML IV PRN (07:00)
[2016-08-18] MEDS ORDERED: INSULIN HUMAN REGULAR 1,000 UNITS/10 ML VIAL SQ PRN (07:00)
[2016-08-18] MEDS ORDERED: SODIUM CHLORID 0.9% 500 ML IV PRN (07:00)
[2016-08-18] MEDS ORDERED: METOPROLOL TARTRATE 25 MG TAB PO PRN (07:00)
[2016-08-18] MEDS: LACTATED RINGER'S 1000 ML INJ 1,000 ML IV SCH (07:15)
[2016-08-18 07:20] VITALS: BP 117/70; PULSE 87; RESP 16; TEMP 98; O2SAT 97
[2016-08-18] MEDS ORDERED: THROMBIN (TOPICAL) 5,000 UNIT VIAL ONE (07:26)
[2016-08-18] MEDS ORDERED: GENTAMICIN SULFATE 80 MG/2 ML VIAL ONE (07:26)
[2016-08-18] MEDS ORDERED: GELFOAM SIZE 100 ONE (07:26)
[2016-08-18] MEDS: ceFAZolin 2 GM PREMIX 50 ML IV SCH ×2 (07:33→11:18)
[2016-08-18] MEDS ORDERED: ARTIFICIAL TEARS OPTH OINT 3.5 APPLIC/3.5 GM TUBO ONE (08:01)
[2016-08-18] MEDS ORDERED: ACETAMINOPHEN 1000 MG/100 ML VIAL IV ONE (08:01)
[2016-08-18] MEDS ORDERED: FAMOTIDINE 20 MG/2 ML VIAL ONE (08:01)
[2016-08-18] MEDS ORDERED: MIDAZOLAM HCL 2 MG/2 ML VIAL ONE (08:02)
[2016-08-18] MEDS ORDERED: fentaNYL CITRATE 250 MCG/5 ML AMP ONE (08:02)
[2016-08-18] MEDS ORDERED: LIDOCAINE 1%/EPINEPHrine 1:100,000 SOLN 30 ML VIAL INFIL ONE (10:35)
[2016-08-18] MEDS ORDERED: PHENYLEPH/NS 1000 MCG/10 ML SYR IV ONE (12:00)
[2016-08-18] MEDS ORDERED: ePHEDrine/NS 25 MG/5 ML SYR IV ONE (12:00)
[2016-08-18] MEDS ORDERED: ONDANSETRON HCL 4 MG/2 ML VIAL IV PUSH ONE (12:00)
[2016-08-18] MEDS ORDERED: PROPOFOL 200 MG/20 ML AMP IV ONE (12:00)
[2016-08-18] MEDS ORDERED: LACTATED RINGER'S 1000 ML INJ 2,000 ML IV ONE (12:00)
[2016-08-18] MEDS ORDERED: DO NOT ADM ANY ANTICOAGULANT DRUGS PRN (13:24)
[2016-08-18] MEDS ORDERED: MORPHINE SULFATE 4 MG/ML INJ ONE (13:33)
[2016-08-18] MEDS ORDERED: ONDANSETRON HCL 4 MG/2 ML VIAL IV PRN (13:45)
[2016-08-18] MEDS ORDERED: PROMETHAZINE HCL 25 MG TAB PO PRN (13:45)
[2016-08-18] MEDS ORDERED: oxyCODONE/ACETAMINOPHEN 5 MG/325 MG TAB PO PRN (13:45)
[2016-08-18] MEDS ORDERED: SODIUM CHLORIDE 0.9% FLUSH 5 ML FLUSH IVF PRN (13:45)
[2016-08-18] MEDS ORDERED: NALOXONE HCL 0.4 MG/ML AMP IV PRN (13:45)
[2016-08-18] MEDS ORDERED: MORPHINE SULFATE 4 MG/ML INJ IV PRN (13:45)
[2016-08-18] MEDS ORDERED: DICYCLOMINE HCL 20 MG TAB PO PRN (14:00)
[2016-08-18] MEDS ORDERED: clonazePAM 0.5 MG TAB PO PRN (14:00)
[2016-08-18] MEDS ORDERED: GLUCAGON 1 MG/ML VIAL OTHER PRN ×2 (14:00→16:45)
[2016-08-18] MEDS ORDERED: DEXTROSE 50% IN WATER 50 ML VIAL(D50) IV PRN (14:00)
--- NOTE | 2016-08-18 14:12 | PD.OP ---
Operative Report Date of Surgery: Aug 18, 2016 Preoperative Diagnosis: (1) Cervical disc disease with myelopathy C5 6 chronic herniated nucleus pulposus with severe spinal cord compression Chronic cervical myelopathy Postoperative Diagnosis: (1) Cervical disc disease with myelopathy C5 6 chronic herniated nucleus pulposus with severe spinal cord compression Chronic cervical myelopathy Procedure: 1. C5-6 anterior cervical discectomy, resection herniated nucleus pulposus and posterior osteophyte-microtechnique 2. C5 6 anterior interbody fusion with composite allograft bone 3. C5-6 anterior cervical instrumentation Anesthesia: Gen. Surgeon: Nicholas Cuellar Machine Operator Hop Worker(s): Camron Henry Operation and Findings: Findings: Large chronic-appearing sequestered herniated disc fragment protruding deep within the midline anterior central cord with significant thinning of the dura. Procedure in detail: The patient was brought into the operating room and positioned in supine position on the 3080 table with the head and neck in neutral position. Lei catheter was placed. Lines were established by Anesthesia. Gen. endotracheal anesthesia was induced without difficulty, taking care not to significantly flex or extend the patient's neck during intubation and positioning. Leads for intraoperative neuro monitoring were placed and a baseline study obtained. All extremities were appropriately padded. The neck and upper chest were shaved with clippers and sterilely prepped and draped. Appropriate timeout procedure was performed with all personnel present and in agreement 1% Xylocaine with epinephrine was used for local infiltration over the incision site which was made transversely at the left C5-6 level and carried sharply down through the platysma muscle. The exposure was continued medial to the sternocleidomastoid muscle and carotid artery, and lateral to the trachea and esophagus. The prevertebral fascia was elevated away from the anterior longitudinal ligament with a Kitner sponge. The longus coli muscle on each side was elevated with the Saunders elevator. The self-retaining retractor was placed with the blades beneath the longus coli muscle on each side. The appropriate levels were confirmed with intraoperative C-arm and preoperative imaging studies. The microscope was brought into place and used for the remainder of the procedure including the closure. The 14 mm distraction pins were used as needed for gentle distraction during the procedure. The procedure was performed at the C5-6 level At the C5-6 the anterior osteophyte was resected with the Leksell rongeur. The disc and annulus was incised with a 15 blade knife and discectomy performed with pituitary biopsy forceps and straight and angled curettes. The TPS drill with the 5 mm barrel bur was used to decorticate the endplates and removed the majority of the osteophyte along the anterior spinal canal as well as the right and left uncovertebral joint. The thin ligament dissector was used to free up the posterior annulus and ligament from the vertebral body margin. The remainder of the resection of the posterior annulus and ligament as well as the posterior osteophyte and bilateral uncovertebral joint was performed with the 2 and 3 mm thin footplate Kerrison rongeurs. A large fragment of herniated nucleus pulposus was encountered posterior to the annulus , eroding through the dura was significant thinning of the central dura, and protruding deep into the anterior midline spinal cord. Using the microdissectors, this fragment was lifted away from the thecal sac and spinal cord. Additional more superficial fragments of disc material and hypertrophied ligament were lifted away from the spinal canal with the thin ligament dissector and removed with the Kerrison rongeur. Moderate posterior osteophyte was encountered and extensively removed. The posterior vertebral bodies were undercut with the Kerrison rongeur and the TPS drill with the 4 mm vinayak bur as needed to fully decompress the anterior spinal canal. The patient's bone was noted to be of rather poor quality, very soft. Due to the poor integrity of the bone, as well as the amount of bone that had to be resected to achieve adequate decompression of the anterior spinal canal, it was felt that the patient was not a candidate for artificial disc placement. The appropriate size 7 x 9 mm lordotic V G2 bone graft was then placed at the C5 -6 level with a good fit of the graft. The blunt nerve hook was used to probe beneath the bone graft to ensure that there was no impingement on the thecal sac or exiting nerve roots. The appropriate size Precision anterior cervical plate was then chosen and the bone screws were placed with the 16 mm fixed screws at the caudal most level and the 16 mm variable screws at the cephalad level of the decompression. The screws were firmly secured and the locking cams engaged. The entire construct was checked with intraoperative C-arm and felt to be satisfactory. The 10 Lithuanian drain was brought out through a small incision in the left lower neck and secured to the skin with nylon suture and attached to sterile suction. The closure was performed with 3-0 Vicryl running for the platysma and interrupted for the subcutaneous closure, with 4-0 Vicryl running for the subcuticular closure. A dressing of sterile Mastisol, Steri-Strips, and Primapore dressing was placed. The patient was placed into a cervical collar, and taken to recovery room in stable condition. All counts were correct at the end of the case. Estimated blood loss was 50 cc No specimen was sent to pathology. Intraoperative neuro monitoring remained stable during the procedure. Nicholas Cuellar MD Aug 18, 2016 14:12
--- NOTE | 2016-08-18 14:12 | RADRPT ---
EXAM DATE/TIME: 08/18/2016 13:45 [facility] COMPARISON: CHEST SINGLE AP, May 02, 2016, 20:11. INDICATIONS : Central line placement. MEDICAL HISTORY : None. SURGICAL HISTORY : None. ENCOUNTER: Initial ACUITY: 1 day PAIN SCORE: Non-responsive. LOCATION: Bilateral chest FINDINGS: Central line and Blllns-a-Suqu are in good position. Right lung is clear. Consolidative changes are evident. Bronchograms are seen in the left base. The heart is minimally enlarged. Pulmonary vascu larity is normal. CONCLUSION: 1. Lines in good position. 2. Consolidative changes in the right base with air bronchograms. Ford Darby MD FACR on August 18, 2016 at 14:02 Board Certified Radiologist. This report was verified electronically.
[2016-08-18] MEDS: 1/2 NS + KCL 20 MEQ INJ 1,000 ML IV SCH (15:00)
[2016-08-18 15:30] VITALS: BP 115/64; PULSE 63; RESP 17; TEMP 96; O2SAT 98
[2016-08-18] MEDS ORDERED: NON-FORMULARY DRUG (Insulin Lispro (Human) Inj (Humalog Inj) 0 UNITS) SQ SCH (16:00)
[2016-08-18] MEDS ORDERED: DEXTROSE 50% IN WATER 50 ML VIAL(D50) IV PUSH PRN (16:45)
[2016-08-18] MEDS: HYDROmorphone HCL PF 1 MG/ML VIAL IV PRN (17:42)
[2016-08-18 17:58] VITALS: O2SAT 97
[2016-08-18] MEDS: DICLOFENAC 1% TOPICAL SCH ×2 (18:15→21:00)
[2016-08-18] MEDS: PREGABALIN 75 MG CAP PO SCH (18:18)
[2016-08-18] MEDS: BETHANECHOL CHL 25 MG TAB PO SCH ×2 (18:20→20:56)
[2016-08-18] MEDS: ALBUTEROL SULFATE 90 MCG/ACT HFA 18 GM INHALER INH SCH (18:20)
--- NOTE | 2016-08-18 19:36 | RADRPT ---
EXAM DATE/TIME: 08/18/2016 10:34 [facility] COMPARISON: No previous studies available for comparison. INDICATIONS : Cervical spine C5-6 ACDF. OR. MEDICAL HISTORY : Chronic obstructive pulmonary disease. Diabetes mellitus type II. SURGICAL HISTORY : Appendectomy. Cholecystectomy. Hysterectomy. Colostomy. ENCOUNTER: Initial ACUITY: 1 day PAIN SCORE: Non-responsive. LOCATION: C-spine C5-6 FINDINGS: Evidence of fusion procedure with anterior instrumentation at C5/C6. Normal alignment. No acute compl ication demonstrated. CONCLUSION: Fusion at C5/C6 without evidence of an acute complication. Vin Regalado MD on August 18, 2016 at 19:34 Board Certified Radiologist. This report was verified electronically.
[2016-08-18] MEDS: azaTHIOprine 50 MG TAB PO SCH (20:56)
[2016-08-18] MEDS: ACETAMINOPHEN/HYDROcodone 325 MG/10 MG TAB PO PRN (20:57)
[2016-08-18] MEDS: SODIUM CHLORIDE 0.9% FLUSH 5 ML FLUSH IVF SCH (20:57)
[2016-08-18] MEDS: BUDESONIDE-FORMOTEROL 160/4.5 MCG INHALER INH SCH (20:57)
[2016-08-18] MEDS: DOCUSATE SODIUM 100 MG CAP PO SCH (20:57)
[2016-08-18] MEDS: LOW DOSE INSULIN NOVOLOG SUPPLEMENTAL SCALE SQ SCH (21:03)
[2016-08-18 21:06] VITALS: BP 128/70; PULSE 81; RESP 18; TEMP 97.4; O2SAT 97
[2016-08-19 00:48] VITALS: BP 104/55; PULSE 83; RESP 17; TEMP 98.4; O2SAT 100
[2016-08-19] MEDS: ACETAMINOPHEN/HYDROcodone 325 MG/10 MG TAB PO PRN ×4 (01:28→18:29)
[2016-08-19] MEDS: BENZOCAINE 6 MG/MENTHOL 10 MG LOZENGE BUCCAL PRN ×2 (01:28→06:13)
[2016-08-19] MEDS: 1/2 NS + KCL 20 MEQ INJ 1,000 ML IV SCH ×3 (01:28→21:00)
[2016-08-19 03:30] VITALS: BP 114/56; PULSE 88; RESP 17; TEMP 98.3; O2SAT 99
[2016-08-19] MEDS: LOW DOSE INSULIN NOVOLOG SUPPLEMENTAL SCALE SQ SCH ×4 (06:16→21:00)
[2016-08-19] MEDS: LACTATED RINGER'S 1000 ML INJ 1,000 ML IV SCH (07:00)
[2016-08-19 07:13] VITALS: BP 109/68; PULSE 81; RESP 18; TEMP 97.7; O2SAT 96
[2016-08-19] MEDS: SODIUM CHLORIDE 0.9% FLUSH 5 ML FLUSH IVF SCH ×2 (08:45→21:00)
[2016-08-19] MEDS: ALBUTEROL SULFATE 90 MCG/ACT HFA 18 GM INHALER INH SCH ×3 (08:45→18:30)
[2016-08-19] MEDS: BUDESONIDE-FORMOTEROL 160/4.5 MCG INHALER INH SCH (08:45)
[2016-08-19] MEDS: DOCUSATE SODIUM 100 MG CAP PO SCH ×2 (08:47→21:00)
[2016-08-19] MEDS: PREGABALIN 75 MG CAP PO SCH ×3 (08:47→18:29)
[2016-08-19] MEDS: MORPHINE SULFATE 15 MG CONTROLLED RELEASE TAB PO SCH ×2 (08:48→21:16)
[2016-08-19] MEDS: CALCIUM/VITAMIN D 250 MG/125 U TAB PO SCH (08:49)
[2016-08-19] MEDS: azaTHIOprine 50 MG TAB PO SCH ×2 (08:49→21:16)
[2016-08-19] MEDS: PANTOPRAZOLE SOD 40 MG DELAYED RELEASE TAB PO SCH (08:49)
[2016-08-19] MEDS: BETHANECHOL CHL 25 MG TAB PO SCH ×4 (08:50→21:16)
[2016-08-19] MEDS: LISINOPRIL 5 MG TAB PO SCH (08:51)
[2016-08-19] MEDS: DICLOFENAC 1% TOPICAL SCH ×4 (09:00→21:00)
[2016-08-19] MEDS: CHOLECALCIFEROL (VIT D3) LIQ 400 UNITS/ML 50 ML BOTTLE PO SCH (11:32)
[2016-08-19 11:40] VITALS: BP 116/69; PULSE 93; RESP 18; TEMP 97.2; O2SAT 95
--- NOTE | 2016-08-19 13:13 | HHI.NSPN ---
(Jelani Joy) History Chief Complaint: Neck pain (Jelani Joy) Interval History 08/18: Patient with history of C5-6 cervical disc disease and myelopathy. Presented to [facility] for a C5-6 ACDF. 08/19: Patient asleep but awakens to verbal stimuli. She states she is doing good but does complain of neck pain. She says the muscle spasms are better. She is still with the numbness to the extremities and she thinks it is slightly better as well. (Jelani Joy) System Review Comments CONSTITUTIONAL: Patient denies any fever or chills. HEENT: Patient does have a sore throat and some hoarseness. NECK: Patient has pain to the back of the neck, especially the right side. She has some pain to the surgical incision. CARDIOVASCULAR: Patient denies any chest pain, palpitations or irregular heartbeat. RESPIRATORY: Patient states that she has some shortness of breath. She denies any productive cough. GASTROINTESTINAL: Patient denies any abdominal pain, nausea, vomiting or bowel incontinence. GENITOURINARY: Patient states that she has a Lei catheter in place. MUSCULOSKELETAL: Patient states that her muscle spasms have improved. She denies any arm or leg pain. NEUROLOGICAL: Patient states that she has numbness and weakness to the extremities. She also has a headache. She denies any dizziness. (Jelani Joy) Exam Results Vital Signs Date Time Temp Pulse Resp B/P Pulse Ox O2 Delivery O2 Flow Rate FiO2 08/19/16 09:07 21 08/19/16 07:13 97.7 81 18 109/68 96 08/18/16 15:10 Room Air 08/18/16 13:45 10 Intake and Output 08/18/16 08/18/16 08/19/16 08:00 16:00 00:00 Intake Total 2000 ml 820 ml Output Total 2050 ml 480 ml Balance -50 ml 340 ml (Jelani Joy) Physical Examination GENERAL: Asleep but awakens to verbal stimuli, normal affect, readily interacts , NAD. INTEGUMENTARY: Intact left anterior neck surgical dressing w/o any evident shadowing, no erythema or streaking noted. CÉSAR drain to bulb suction w/ serosanguinous drainage. HEENT: Normocephalic, atraumatic. NECK: [place] J cervical collar in place. NTTP of midline cervical spine, moderately TTP of the right posterolateral neck, mildly TTP of surgical incision. CARDIOVASCULAR: S1S2 w/RRR w/o M/G/R, radial & pedal pulses 2+ bilaterally, cap refill < 2 sec. RESPIRATORY: CTAB w/o W/R/R, equal excursion, nonlaboured, on RA. GASTROINTESTINAL: Abdomen soft, nontender, positive bowel sounds. GENITOURINARY: Lei catheter to BSD w/clear yellow urine. MUSCULOSKELETAL: ZUNIGA but BLE limited. With noted muscle spasms/tremors to BLE with attempted movement. No evident deformity, discolouration or clubbing. NEUROLOGICAL: AA&O x3 Speech slightly hoarse but appropriate Decreased sensation to light touch all extremities Motor strength BUE 3+/5 but finger intrinsics & extensors 2/5, BLE 2+/5 (Jelani Joy) Medical Decision Making Impression and Plan Impression: (1) Cervical disc disease with myelopathy C5 6 chronic herniated nucleus pulposus with severe spinal cord compression Chronic cervical myelopathy POD #1 () s/p: 1. C5-6 anterior cervical discectomy, resection herniated nucleus pulposus and posterior osteophyte-microtechnique 2. C5 6 anterior interbody fusion with composite allograft bone 3. C5-6 anterior cervical instrumentation Patient continues with neck pain, cervical myelopathy & muscle spasms but improved per patient CÉSAR drain output 35 mL Plan: Monitor CÉSAR drain output PT & OT eval & tx OOB w/assistance Lei catheter management Pain control (Jelani Joy) Attending Statement I have personally seen and examined the patient on the date of this note. Pertinent documentation and study results have been reviewed by the undersigned. I have personally developed the treatment plan and performed medical decision making. Agree with findings, exam, and treatment plan as noted above. She is a little more comfortable today. Physical exam relatively stable compared to preoperative. Still with some swallowing difficulty. Continue speech, physical therapy Discussed with wound care nurse today. Orders written for sacral decubitus care. She wants to return back home with her son. Discontinue drain (Nicholas Cuellar MD) Jelani Joy Aug 19, 2016 13:13 Nicholas Cuellar MD Aug 19, 2016 18:39
[2016-08-19] MEDS: HYDROmorphone HCL PF 1 MG/ML VIAL IV PRN (14:07)
[2016-08-19 15:30] VITALS: BP 125/69; PULSE 76; RESP 18; TEMP 97; O2SAT 95
[2016-08-19 20:00] VITALS: BP 127/58; PULSE 80; RESP 18; TEMP 97.8; O2SAT 97
[2016-08-20] VITALS (7 sets, daily range): BP systolic 104–131; BP diastolic 58–72; PULSE 75–81; RESP 17–18; TEMP 97.9–98.6; O2SAT 95–96
[2016-08-20] MEDS: ACETAMINOPHEN/HYDROcodone 325 MG/10 MG TAB PO PRN ×5 (01:43→18:10)
[2016-08-20] MEDS: LOW DOSE INSULIN NOVOLOG SUPPLEMENTAL SCALE SQ SCH ×4 (06:02→20:50)
[2016-08-20] MEDS: BUDESONIDE-FORMOTEROL 160/4.5 MCG INHALER INH SCH ×3 (06:03→20:49)
[2016-08-20] MEDS: LACTATED RINGER'S 1000 ML INJ 1,000 ML IV SCH (07:00)
[2016-08-20] MEDS: 1/2 NS + KCL 20 MEQ INJ 1,000 ML IV SCH ×2 (07:00→17:00)
[2016-08-20] MEDS: CALCIUM/VITAMIN D 250 MG/125 U TAB PO SCH (08:22)
[2016-08-20] MEDS: PREGABALIN 75 MG CAP PO SCH ×3 (08:22→18:10)
[2016-08-20] MEDS: LISINOPRIL 5 MG TAB PO SCH (08:23)
[2016-08-20] MEDS: MORPHINE SULFATE 15 MG CONTROLLED RELEASE TAB PO SCH ×2 (08:23→20:48)
[2016-08-20] MEDS: PANTOPRAZOLE SOD 40 MG DELAYED RELEASE TAB PO SCH (08:23)
[2016-08-20] MEDS: azaTHIOprine 50 MG TAB PO SCH ×2 (08:23→20:48)
[2016-08-20] MEDS: ALBUTEROL SULFATE 90 MCG/ACT HFA 18 GM INHALER INH SCH ×3 (08:24→18:00)
[2016-08-20] MEDS: DOCUSATE SODIUM 100 MG CAP PO SCH ×2 (08:31→20:50)
[2016-08-20] MEDS: SODIUM CHLORIDE 0.9% FLUSH 5 ML FLUSH IVF SCH ×2 (08:31→20:50)
[2016-08-20] MEDS: DICLOFENAC 1% TOPICAL SCH ×3 (08:32→18:00)
[2016-08-20] MEDS: CHOLECALCIFEROL (VIT D3) LIQ 400 UNITS/ML 50 ML BOTTLE PO SCH (08:32)
[2016-08-20] MEDS: BETHANECHOL CHL 25 MG TAB PO SCH ×4 (08:32→20:48)
--- NOTE | 2016-08-20 15:09 | HHI.NSPN ---
(Jelani Joy) History Chief Complaint: Bilateral arm pain (Jelani Joy) Interval History 08/18: Patient with history of C5-6 cervical disc disease and myelopathy. Presented to [facility] for a C5-6 ACDF. 08/19: Patient asleep but awakens to verbal stimuli. She states she is doing good but does complain of neck pain. She says the muscle spasms are better. She is still with the numbness to the extremities and she thinks it is slightly better as well. 08/20: The patient is seen with Dr Cuellar this morning. She complained of pain to the arms with the worse being the left. This afternoon she states that she has a headache and after eating lunch had some nausea. (Jelani Joy) System Review Comments CONSTITUTIONAL: Patient denies any fever or chills. HEENT: Patient does have a sore throat and is slightly hoarse. NECK: Patient has pain to the right posterior neck. She has some pain to the surgical incision. CARDIOVASCULAR: Patient denies any chest pain, palpitations or irregular heartbeat. RESPIRATORY: Patient states that she has some shortness of breath. She denies any productive cough. GASTROINTESTINAL: Patient has some nausea. She denies any abdominal pain, vomiting or bowel incontinence. GENITOURINARY: Patient states that she has a Lei catheter in place. MUSCULOSKELETAL: Patient states she has arm pain with the left worse and that her muscle spasms still occur. NEUROLOGICAL: Patient states that she has numbness and weakness to the extremities. She also has a headache. She denies any dizziness. (Jelani Joy) Exam Results Vital Signs Date Time Temp Pulse Resp B/P Pulse Ox O2 Delivery O2 Flow Rate FiO2 08/20/16 12:00 98.1 79 17 131/66 95 08/20/16 09:28 21 08/18/16 15:10 Room Air 08/18/16 13:45 10 Intake and Output 08/19/16 08/19/16 08/20/16 08:00 16:00 00:00 Intake Total 950 ml 2817 ml 950 ml Output Total 455 ml 960 ml 800 ml Balance 495 ml 1857 ml 150 ml (Jelani Joy) Physical Examination GENERAL: Awake & alert, normal affect, readily interacts, NAD. INTEGUMENTARY: Intact left anterior neck surgical dressing w/o any evident shadowing, no erythema or streaking noted. HEENT: Normocephalic, atraumatic. NECK: [place] J cervical collar in place. NTTP of midline cervical spine, moderately TTP of the right posterolateral neck, mildly TTP of surgical incision. CARDIOVASCULAR: S1S2 w/RRR w/o M/G/R, radial & pedal pulses 2+ bilaterally, cap refill < 2 sec. RESPIRATORY: CTAB w/o W/R/R, equal excursion, nonlaboured, on RA. GASTROINTESTINAL: Abdomen soft, nontender, positive bowel sounds. GENITOURINARY: Lei catheter to BSD w/clear yellow urine. MUSCULOSKELETAL: ZUNIGA but BLE limited. With noted muscle spasms/tremors to all extremities. No evident deformity, discolouration or clubbing. NEUROLOGICAL: AA&O x3 Speech clear & appropriate Decreased sensation to light touch all extremities Motor strength BUE 3+/5 but finger intrinsics & extensors 2/5, BLE 2 to 2+/5 but bilateral plantar extension 3/5 (Jelani Joy) Medical Decision Making Impression and Plan Impression: (1) Cervical disc disease with myelopathy C5 6 chronic herniated nucleus pulposus with severe spinal cord compression Chronic cervical myelopathy POD #2 () s/p: 1. C5-6 anterior cervical discectomy, resection herniated nucleus pulposus and posterior osteophyte-microtechnique 2. C5 6 anterior interbody fusion with composite allograft bone 3. C5-6 anterior cervical instrumentation Stable neurological exam, patient continues with neck pain, cervical myelopathy & muscle spasms but improved per patient Also with bilateral arm pain, today L>R Plan: Continue PT & OT OOB w/assistance Lei catheter management Pain control Possible d/c home w/current [facility] provider for skilled services (Jelani Joy) Attending Statement I have personally seen and examined the patient on the date of this note. Pertinent documentation and study results have been reviewed by the undersigned. I have personally developed the treatment plan and performed medical decision making. Agree with findings, exam, and treatment plan as noted above. Patient complains of increased somewhat focal intermittent left upper extremity pain this morning. Prior surgery mostly diffuse aching in the upper extremity is. Pain was not present initially postoperative. No overall change in examination today. Continuing observation She wishes to discharge back home today. She has home health care already in place. (Nicholas Cuellar MD) Jelani Joy Aug 20, 2016 15:09 Nicholas Cuellar MD Aug 20, 2016 18:11
[2016-08-20] MEDS ORDERED: HYDR-3583 PO (16:50)
--- NOTE | 2016-08-20 16:51 | HHI.DCPOC ---
Discharge Care Plan Diagnosis: (1) Cervical disc disease with myelopathy Your Health Problems Are: Difficulty with ADL Incision/Drains Loss of Movements Chronic Pain Goals to Promote Your Health * To prevent worsening of your condition and complications * To maintain your health at the optimal level Directions to Meet Your Goals Take your medications as prescribed Follow your dietary instruction Follow activity as directed Keep your appointments as scheduled Take your immunizations and boosters as scheduled If your symptoms worsen call your PCP, if no PCP go to Urgent Care Center or Emergency Room Smoking is Dangerous to Your Health. Avoid second hand smoke Call the 24-hour hour crisis hotline for domestic abuse at Nicholas Cuellar MD Aug 20, 2016 16:51
--- NOTE | 2016-08-20 16:56 | HHI.DS ---
Discharge Summary Admission Date Aug 18, 2016 at 13:48 Discharge Date: Aug 20, 2016 Admitting Diagnosis Cervical stenosis Cervical myelopathy (1) Cervical disc disease with myelopathy ICD Code: M50.00 Procedures Date of Surgery: Aug 18, 2016 Preoperative Diagnosis: (1) Cervical disc disease with myelopathy C5 6 chronic herniated nucleus pulposus with severe spinal cord compression Chronic cervical myelopathy Postoperative Diagnosis: (1) Cervical disc disease with myelopathy C5 6 chronic herniated nucleus pulposus with severe spinal cord compression Chronic cervical myelopathy Procedure: 1. C5-6 anterior cervical discectomy, resection herniated nucleus pulposus and posterior osteophyte-microtechnique 2. C5 6 anterior interbody fusion with composite allograft bone 3. C5-6 anterior cervical instrumentation PE at Discharge Awake and alert Respirations clear Cardiac regular No change in neurologic exam compared to preoperative. Persistent severe lower extremity paresis with diffuse sensory loss Hospital Course Patient admitted for the above noted procedure performed without complication. Physical therapy initiated postoperative. Maintained on insulin sliding scale Drain discontinued 08/20/16 Patient with complaint of increased aching in the left arm on 08/20/16. No new deficit on exam. Tolerating diet well at the time of discharge. Pt Condition on Discharge: Stable Discharge Disposition: Disch w/ Home Health Serv Discharge Instructions DIET: Follow Instructions for: Diabetic Diet Speech Therapy-Diet Recommenda: Mechanical Soft ACTIVITIES You can perform: Weight Bearing As Michael Activities to Avoid: Strenuous Activity New Medications: Hydrocodone-Acetaminophen (Hydrocodone-Acetaminophen) 10-325 mg Tab 1 TAB PO Q4H PRN PAIN SCALE 6 TO 10 #60 Ref 0 TAB Continued Medications: Albuterol 18 GM Inh (Ventolin Hfa 18 GM Inh) 90 Mcg/Act Aer 2 PUFF OROPHARYNG TID #72 Alendronate (Alendronate) 70 Mg Tab 70 MG PO Q7D Osteporosis Treatment #4 Ref 0 TAB Azathioprine (Azathioprine) 50 Mg Tab 50 MG PO BID Hazardous agent use appropriate precautions for handling and disposal. Immunosuppression #60 Ref 0 TAB Bethanechol (Bethanechol) 25 Mg Tab 25 MG PO QID Urinary Symptom Managemen Ref 0 TAB Budesonide-Formoterol Inh (Symbicort Inh) 160-4.5 Mcg/Act Aero 2 PUFF INH Q12HR #1 Ref 0 INHALER Calcium Carbonate-Cholecalciferol (Calcium 600 with Vitamin D) 600-400 mg-Unit Tab 1 TAB PO DAILY Calcium Supplement Ref 0 TAB Cholecalciferol (Vitamin D) 400 Unit/Ml Drops 400 UNITS PO DAILY #1 BOTTLE Clonazepam (Clonazepam) 0.5 Mg Tab 0.5 MG PO TID PRN MILD ANXIETY #90 Ref 0 TAB Diclofenac Topical (Diclofenac Topical) 1% Gel 1 APPLIC TOPICAL QID Pain Management #100 Ref 0 GM Dicyclomine (Dicyclomine) 20 Mg Tab 20 MG PO QID PRN CRAMPS #120 Ref 0 TAB Insulin Glargine Inj (Lantus Solostar Pen Inj) 300 Unit/3 Ml Pen 1 UNITS SQ Blood Sugar Management Ref 0 PEN Insulin Lispro (Human) Inj (Humalog Inj) 1,000 Unit/10 Ml Vial 2-12 UNITS SQ ACHS Max dose at bedtime:( )units; sugars < 70,(0)units; sugars 150-199,(2)units; sugars 200-249,(4)units; sugars 250-299,(7)units; sugars 300- 349,(10)units; sugars more than 349,(12)units. Blood Sugar Management #1 Ref 0 VIAL Lisinopril (Lisinopril) 5 Mg Tab 5 MG PO DAILY Blood Pressure Management #30 Ref 0 TAB Morphine IR (Morphine IR) 15 Mg Tab 15 MG PO Q4H PRN PAIN Ref 0 TAB Ondansetron (Ondansetron) 8 Mg Tab 8 MG PO TID PRN NAUSEA Ref 0 TAB Pregabalin (Lyrica) 75 Mg Cap 75 MG PO TID #270 ([Pump]) IT CONTINUOUS BACLOFEN 130MG DILAUDID 10MG Nicholas Cuellar MD Aug 20, 2016 16:56
[2016-08-21] VITALS: BP 126/69; PULSE 81; RESP 16; TEMP 97.7; O2SAT 96
[2016-08-21] MEDS: 1/2 NS + KCL 20 MEQ INJ 1,000 ML IV SCH (03:00)
[2016-08-21] MEDS: ACETAMINOPHEN/HYDROcodone 325 MG/10 MG TAB PO PRN ×2 (03:43→10:35)
[2016-08-21 04:00] VITALS: BP 106/68; PULSE 81; RESP 20; TEMP 97.6; O2SAT 97
[2016-08-21] MEDS: LACTATED RINGER'S 1000 ML INJ 1,000 ML IV SCH (04:52)
[2016-08-21] MEDS: LOW DOSE INSULIN NOVOLOG SUPPLEMENTAL SCALE SQ SCH (07:00)
[2016-08-21 08:00] VITALS: BP 101/66; PULSE 70; RESP 17; TEMP 98; O2SAT 98
[2016-08-21] MEDS: azaTHIOprine 50 MG TAB PO SCH (08:41)
[2016-08-21] MEDS: PREGABALIN 75 MG CAP PO SCH (08:41)
[2016-08-21] MEDS: CALCIUM/VITAMIN D 250 MG/125 U TAB PO SCH (08:41)
[2016-08-21] MEDS: BETHANECHOL CHL 25 MG TAB PO SCH (08:42)
[2016-08-21] MEDS: PANTOPRAZOLE SOD 40 MG DELAYED RELEASE TAB PO SCH (08:42)
[2016-08-21] MEDS: LISINOPRIL 5 MG TAB PO SCH (08:42)
[2016-08-21] MEDS: DOCUSATE SODIUM 100 MG CAP PO SCH (08:42)
[2016-08-21] MEDS: MORPHINE SULFATE 15 MG CONTROLLED RELEASE TAB PO SCH (08:43)
[2016-08-21] MEDS: SODIUM CHLORIDE 0.9% FLUSH 5 ML FLUSH IVF SCH (08:45)
[2016-08-21] MEDS: CHOLECALCIFEROL (VIT D3) LIQ 400 UNITS/ML 50 ML BOTTLE PO SCH (08:46)
[2016-08-21] MEDS: ALBUTEROL SULFATE 90 MCG/ACT HFA 18 GM INHALER INH SCH (08:46)
[2016-08-21] MEDS: BUDESONIDE-FORMOTEROL 160/4.5 MCG INHALER INH SCH (08:46)
--- NOTE | 2016-08-21 09:46 | HHI.FF ---
Face to Face Verification Diagnosis: (1) Cervical disc disease with myelopathy (2) Multiple sclerosis (3) Diabetes mellitus (4) Neuromyelitis optica Physical Therapy Order: Evaluate and Treat Occupational Therapy Order: Evaluate and Treat Home Health Nursing Order: Signs/symptoms of disease process Wound care and dressing changes Nursing assessment with vital signs Home Health Aide Order: To Assist In: Bathing and personal care I have seen patient Hannah Garner on 08/21/16. My clinical findings support the need for the requested home health care services because: Ltd mobility - disease progression Limited ability to care for self High risk of falls I certify that my clinical findings support that this patient is homebound because: Unsteady gait/balance Unsafe to leave home unassisted Jelani Joy Aug 21, 2016 09:46
--- NOTE | 2016-08-21 11:18 | HHI.NSPN ---
(Jelani Joy) History Chief Complaint: Neck pain (Jelani Joy) Interval History 08/18: Patient with history of C5-6 cervical disc disease and myelopathy. Presented to [place] for a C5-6 ACDF. 08/19: Patient asleep but awakens to verbal stimuli. She states she is doing good but does complain of neck pain. She says the muscle spasms are better. She is still with the numbness to the extremities and she thinks it is slightly better as well. 08/20: The patient is seen with Dr Cuellar this morning. She complained of pain to the arms with the worse being the left. This afternoon she states that she has a headache and after eating lunch had some nausea. 08/21: The patient states she has neck pain this morning. She also has some pain under the left breast. She was to be discharged yesterday but the [id number] form was not completed and she was therefore not discharged. (Jelani Joy) System Review Comments CONSTITUTIONAL: Patient denies any fever or chills. HEENT: Patient does have a little sore throat. NECK: Patient has pain to the back of the neck and the surgical incision. CARDIOVASCULAR: Patient has some chest pain under the left breast. She denies any palpitations or irregular heartbeat. RESPIRATORY: Patient denies any shortness of breath or productive cough. GASTROINTESTINAL: Patient denies any abdominal pain, nausea, vomiting or bowel incontinence. MUSCULOSKELETAL: Patient states she hasmuscle spasms. NEUROLOGICAL: Patient states that she has numbness and weakness to the extremities. She also has a headache. She denies any dizziness. (Jelani Joy) Exam Results Vital Signs Date Time Temp Pulse Resp B/P Pulse Ox O2 Delivery O2 Flow Rate FiO2 08/21/16 08:00 98.0 70 17 101/66 98 08/20/16 18:58 Room Air 08/20/16 09:28 21 08/18/16 13:45 10 Intake and Output 08/20/16 08/20/16 08/21/16 08:00 16:00 00:00 Intake Total 120 ml 720 ml Output Total 750 ml 200 ml Balance -630 ml 520 ml (Jelani Joy) Physical Examination GENERAL: Awake & alert, normal affect, readily interacts, NAD. INTEGUMENTARY: Intact left anterior neck surgical dressing w/o any evident shadowing, no erythema or streaking noted. HEENT: Normocephalic, atraumatic. NECK: [place] J cervical collar in place. Mildly TTP of midline cervical spine, moderately TTP of the right posterolateral neck, mildly TTP of surgical incision. CARDIOVASCULAR: S1S2 w/RRR w/o M/G/R, radial & pedal pulses 2+ bilaterally, cap refill < 2 sec. RESPIRATORY: Minimally TTP under left breast, CTAB w/o W/R/R, equal excursion, nonlaboured, on RA. GASTROINTESTINAL: Abdomen soft, nontender, positive bowel sounds. MUSCULOSKELETAL: ZUNIGA but BLE limited. With noted muscle spasms/tremors to BLE with movement. No evident deformity, discolouration or clubbing. NEUROLOGICAL: AA&O x3 Speech clear & appropriate Decreased sensation to light touch all extremities Motor strength RUE 4/5, LUE 3+/5 but finger intrinsics & extensors 2/5, BLE 2 to 2+/5 but bilateral plantar extension 3/5 (Jelani Joy) Medical Decision Making Impression and Plan Impression: (1) Cervical disc disease with myelopathy C5 6 chronic herniated nucleus pulposus with severe spinal cord compression Chronic cervical myelopathy POD #3 () s/p: 1. C5-6 anterior cervical discectomy, resection herniated nucleus pulposus and posterior osteophyte-microtechnique 2. C5 6 anterior interbody fusion with composite allograft bone 3. C5-6 anterior cervical instrumentation Stable neurological exam, patient continues with neck pain, cervical myelopathy & muscle spasms but improved per patient Plan: Continue PT & OT OOB w/assistance Pain control D/C home w/current [facility] provider for further services (Jelani Joy) Attending Statement The exam, history, and the medical decision-making described in the above note were completed with the assistance of the mid-level provider. I reviewed and agree with the findings presented. I attest that I had a [id number] encounter with the patient on the same day, and personally performed and documented my assessment and findings in the medical record. Plan D/C home with [facility] Stable neuro exam post op (Nicholas Cuellar MD) Jelani Joy Aug 21, 2016 11:18 Nicholas Cuellar MD Sep 16, 2016 17:30
[2016-08-29] MEDS ORDERED: AMIT25TA9 PO (12:13)
== END 2016-08-21 12:52 | disposition home health service (06) ==
LOC: HSDC 06:17 → HSDI 13:48 → N06B 15:19
PROVIDERS: ADMIT Neurological Surgery; ATTEND Neurological Surgery
DX: M50.022 Cervical disc disorder at C5-C6 level with myelopathy (principal); M25.78 Osteophyte, vertebrae; M48.02 Spinal stenosis, cervical region; J44.9 Chronic obstructive pulmonary disease, unspecified; E11.40 Type 2 diabetes mellitus with diabetic neuropathy, unspecified; I10 Essential (primary) hypertension; K21.9 Gastro-esophageal reflux disease without esophagitis
CPT/HCPCS: 20931; 22551; 22845; 71010; 72020; 76000; 82948; 92526; 92610; 94150; 96372; 96374; 96375; 96376; 97162; 97530; C1713; G0378; G8987; G8988; G8996; G8997; G8998; J0131; J0690; J1170; J1580; J1815; J2250; J2270; J2370; J2405; J3010; J7120; J7500; L0150; L0172; Q0169

== ENCOUNTER → 2016-10-31 | Outpatient (CLI) | payer OTHER ==
[~2016-10-31] MED LIST changes: +AMIT25TA9 PO; -HUMA100I3 SQ; +HYDR-3583 PO; -VOLT1GEL4
--- NOTE | 2016-10-31 12:52 | RADRPT ---
EXAM DATE/TIME: 10/31/2016 12:23 [facility] COMPARISON: No previous studies available for comparison. INDICATIONS : Post-op cervical spine C5-6 ACDF. MEDICAL HISTORY : Chronic obstructive pulmonary disease. Diabetes mellitus type II. SURGICAL HISTORY : Appendectomy. Cholecystectomy. Hysterectomy. Colostomy. ENCOUNTER: Initial ACUITY: 1 day PAIN SCORE: 0/10 LOCATION: c-spine FINDINGS: AP and lateral views of the cervical spine were obtained and demonstrate back the patient is status p ost anterior cervical fusion at the C5-6 level with intact anterior screw-plate fixation device. Prev ertebral soft tissues are within normal limits. The alignment is unremarkable. There is bone graft ma terial at C5-6 interspace. CONCLUSION: Status post anterior cervical fusion at the C5-6 level. Camron Gee MD on October 31, 2016 at 12:50 Board Certified Radiologist. This report was verified electronically.
--- NOTE | 2016-10-31 12:53 | RADRPT ---
EXAM DATE/TIME: 10/31/2016 12:28 [facility] COMPARISON: No previous studies available for comparison. INDICATIONS : Post-op cervical spine C5-6 ACDF. MEDICAL HISTORY : Chronic obstructive pulmonary disease. Diabetes mellitus type II. SURGICAL HISTORY : Appendectomy. Cholecystectomy. Hysterectomy. Colostomy. C5-C6 ACDF. ENCOUNTER: Initial ACUITY: 1 day PAIN SCORE: 4/10 LOCATION: c-spine. FINDINGS: Flexion and extension views of the cervical spine were performed. The alignment of the cervical vert ebral bodies is maintained in flexion and extension and there is no evidence of subluxation. The pre vertebral soft tissues are normal in thickness. The patient status post anterior cervical fusion at t he C5-6 level with bone grafting material in the interspace. CONCLUSION: Status post anterior cervical fusion at C5-6 with no abnormal mobility. Camron Gee MD on October 31, 2016 at 12:51 Board Certified Radiologist. This report was verified electronically.
== END ==
LOC: HRAD 12:06
PROVIDERS: ATTEND Neurological Surgery
DX: M50.00 Cervical disc disorder with myelopathy, unspecified cervical region (principal)
CPT/HCPCS: 72040

== ENCOUNTER 2016-11-21 11:01 | Emergency (ER) | payer OTHER, MEDICAID ==
[~2016-11-21] VITALS: Ht 165.1 cm; Wt 90.0 kg
[2016-11-21 11:17] VITALS: BP 122/75; PULSE 93; RESP 14; TEMP 98.5; O2SAT 97
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
== END 2016-11-21 16:49 | disposition home or self-care (01) ==
LOC: NEPE 11:01 → NEPB 16:49
DX: G35 Multiple sclerosis (principal)
CPT/HCPCS: 99281